=== PATIENT | male | born 1965 | race Caucasian/White ===

== ENCOUNTER 2018-10-31 15:35 | Emergency (ER) | payer OTHER ==
[2018-10-31 15:45] VITALS: RESP 18
[2018-10-31] MEDS ORDERED: MORPHINE SULFATE 4 MG/ML SYRINGE IV STA (16:40)
[2018-10-31] MEDS ORDERED: ASPIRIN 81 MG PO STA (16:40)
[2018-10-31] MEDS ORDERED: ONDANSETRON 4 MG/2 ML VIAL IVP STA (16:40)
[2018-10-31] MEDS ORDERED: SODIUM CHLORIDE 0.9% 500 ML 500 ML IV STA (16:40)
--- NOTE | 2018-10-31 16:52 | ED ---
Chest Pain HPI <VinTristan - Last Filed: 10/31/18 18:30> - General Source: patient Mode of arrival: ambulatory Limitations: no limitations <Vee Schultz - Last Filed: 10/31/18 19:34> - General Chief Complaint: Chest Pain Stated Complaint: chest/neck pain Time Seen by Provider: 10/31/18 16:20 - History of Present Illness Initial Comments: 53-year-old male patient presents to the emergency department today for evaluation of substernal chest pain that radiates into his back, neck, and shoulders. Patient states the pain has been present since last evening. States it has been intermittent. States that he does have shortness of breath, nausea, and occasional sweats with this. Patient does have history of hypertension is been a smoker for many years. He denies any history of high cholesterol, diabetes, or family history of cardiac conditions. He denies any recent travel, leg pain, or calf swelling. Patient denies any recent rash, fever , chills, abdominal pain, vomiting, diarrhea, constipation, numbness, tingling, dizziness, weakness, hematuria, dysuria, urinary urgency, urinary frequency, headache, visual changes, or any other complaints. (Vee Schultz) - Related Data Home Medications Medication Instructions Recorded Confirmed No Known Home Medications 10/31/18 10/31/18 Allergies Allergy/AdvReac Type Severity Reaction Status Date / Time No Known Allergies Allergy Verified 10/31/18 16:25 Review of Systems ROS Other: All systems not noted in ROS Statement are negative. <Tristan Banuelos - Last Filed: 10/31/18 18:30> ROS Other: All systems not noted in ROS Statement are negative. <Vee Schultz - Last Filed: 10/31/18 19:34> ROS Statement: Those systems with pertinent positive or pertinent negative responses have been documented in the HPI. EKG Findings - EKG Comments: EKG Findings:: EKG obtained at 1619 shows sinus tachycardia with a ventricular rate of 103, [place] interval 126, QRS duration 86, QT 346, QTc 453. Patient does exhibit inverted T waves in V3, V4, V5, this is changed from previous EKG obtained on 07/28/2013. <Vee Schultz - Last Filed: 10/31/18 19:34> Past Medical History Past Medical History: Hypertension History of Any Multi-Drug Resistant Organisms: None Reported Additional Past Surgical History / Comment(s): colonscopy Past Psychological History: Anxiety Smoking Status: Current every day smoker Past Alcohol Use History: None Reported Past Drug Use History: Marijuana <Vee Schultz - Last Filed: 10/31/18 19:34> General Exam Limitations: no limitations <Vee Schultz - Last Filed: 10/31/18 19:34> Course <Tristan Banuelos - Last Filed: 10/31/18 18:30> <Vee Schultz - Last Filed: 10/31/18 19:34> Vital Signs 10/31/18 10/31/18 15:41 19:28 Temperature 98.1 F 99.3 F Pulse Rate 109 H 93 Respiratory 18 18 Rate Blood Pressure 118/67 125/99 O2 Sat by Pulse 98 96 Oximetry - Reevaluation(s) Reevaluation #1: 10/31/18 18:31 N P supervision: I proceeded [id number] evaluation the patient he did present with complaints of intermittent chest pain that started in his chest radiating to his back and across his shoulders. He had associated sweats and nausea with it. Initial workup is negative at the symptoms are consistent with unstable angina. I did discuss the case with Dr. Edward. The patient will be admitted and a workup will be done inpatient. I do agree with the assessment and plan. (Tristan Banuelos) Chest Pain MDM <Tristan Banuelos - Last Filed: 10/31/18 18:30> <Vee Schultz - Last Filed: 10/31/18 19:34> - [facility] RADIOLOGY:Two-view x-ray of the chest is obtained. Report was reviewed in its entirety. Impression by Dr. Mitzi Joshi shows no acute process. 53-year-old male patient presented to the emergency department today for evaluation of chest pain, shortness of breath, and tingling to his fingers. Physical examination was unremarkable. Chest x-ray showed no acute cardio pulmonary process. Initial lab evaluation was unremarkable. Troponin negative. Patient did have risk factors including hypertension and a long history of smoking cigarettes. I did recommend admission to the hospital for further monitoring, repeat labs, and cardiac evaluation. Patient refused to stay stating that he had elderly parents at home that he could not leave by themselves. I did discuss risks of leaving including , permanent disability, heart attack, and stroke, he verbalizes understanding of the risks and would still like to leave. He is instructed to follow-up outpatient for further evaluation. He is instructed to start taking a baby aspirin daily. Return parameters were discussed in detail. He verbalizes understanding and agrees with this plan. (Vee Schultz) Disposition <Tristan Banuelos - Last Filed: 10/31/18 18:30> Is patient prescribed a controlled substance at d/c from ED?: No Time of Disposition: 19:05 <Vee Schultz - Last Filed: 10/31/18 19:34> Clinical Impression: Chest pain Disposition: Left Against Medical Advice Condition: Undetermined Instructions (If sedation given, give patient instructions): Chest Pain (ED) Additional Instructions: [facility] soon as possible. Take a baby aspirin daily. Return to the emergency department immediately for any new , worsening, or concerning symptoms. Referrals: [facility],Odilia Lezama [NON-STAFF] - 1-2 days Leonarda Goldstein MD [STAFF PHYSICIAN] - 1-2 days
[2018-10-31 17:18] LABS: Basophils # (A) 0.1 k/uL (0-0.2); Basophils % (A) 1 %; Eosinophils # (A) 0.3 k/uL (0-0.7); Eosinophils % (A) 3 %; HCT 47.3 % (39.0-53.0); HGB 15.7 gm/dL (13.0-17.5); Lymphocytes # (A) 1.9 k/uL (1.0-4.8); Lymphocytes % (A) 19 %; MCH 31.9 pg (25.0-35.0); MCHC 33.1 g/dL (31.0-37.0); MCV 96.3 fL (80.0-100.0); Mean Platelet Volume 6.7; Monocytes # (A) 0.6 k/uL (0-1.0); Monocytes % (A) 6 %; Neutrophils # (A) 7.3 k/uL (1.3-7.7); Neutrophils % (A) 71 %; Platelet Count 350 k/uL (150-450); RBC 4.91 m/uL (4.30-5.90); WBC 10.3 k/uL (3.8-10.6)
[2018-10-31 17:32] LABS: D-Dimer 0.3 mg/L FEU (<0.60); INR 0.9 (<1.2); Partial Thromboplastin Time 26.3 sec (22.0-30.0); Prothrombin Time 10.1 sec (9.0-12.0)
[2018-10-31 17:37] LABS: ALT 24 U/L (21-72); AST 22 U/L (17-59); Albumin 4.2 g/dL (3.5-5.0); Alkaline Phosphatase 61 U/L (38-126); Amylase 62 U/L (30-110); Anion Gap 9 mmol/L; Blood Urea Nitrogen 17 mg/dL (9-20); Carbon Dioxide 27 mmol/L (22-30); Chloride 105 mmol/L (98-107); Glucose 121 mg/dL (74-99); Lipase 107 U/L (23-300); Magnesium 1.9 mg/dL (1.6-2.3); Potassium 4.2 mmol/L (3.5-5.1); Sodium 141 mmol/L (137-145); Total Bilirubin 0.6 mg/dL (0.2-1.3); Total Protein 7.2 g/dL (6.3-8.2)
[2018-10-31 17:58] LABS: Creatine Kinase MB 0.9 ng/mL (0.0-2.4); Troponin I 0.013 ng/mL (0.000-0.034)
--- NOTE | 2018-10-31 17:58 | XR ---
EXAMINATION: XR chest 2V DATE AND TIME: 10/31/2018 5:40 PM CLINICAL INDICATION: [facility]; Chest Pain TECHNIQUE: Departmental protocol COMPARISON: 07/28/2013 FINDINGS: The lungs are clear. The pleural spaces are negative. The cardiac silhouette is not enlarged. The remainder of the mediastinal silhouette is unremarkable. The skeletal structures and soft tissues are negative for acute findings. IMPRESSION: NO ACUTE PROCESS.
[2018-10-31 19:30] VITALS: BP 125/99; PULSE 93; TEMP 99.3
== END 2018-10-31 19:32 | disposition left against medical advice (07) ==
LOC: EC 15:35
DX: R07.2 Precordial pain (principal); R06.02 Shortness of breath; R20.2 Paresthesia of skin; F17.200 Nicotine dependence, unspecified, uncomplicated; Z53.29 Procedure and treatment not carried out because of patient's decision for other reasons
CPT/HCPCS: 36415; 93005; 85379; 80053; 82150; 82550; 82553; 83690; 83735; 84484; 85025; 85610; 85730; 71046; 99285; 96374; 96375; 96361 ×2; J2270; J2405

== ENCOUNTER 2018-11-03 17:21 | Emergency (ER) | payer OTHER ==
[2018-11-03 17:37] VITALS: TEMP 97.5
[2018-11-03] MEDS ORDERED: KETOROLAC 30 MG/ML 1 ML VIAL IVP STA (17:46)
[2018-11-03] MEDS ORDERED: HYDROmorphone 1 MG/ML 1 ML SYRINGE IVP STA (17:46)
[2018-11-03] MEDS ORDERED: SODIUM CHLORIDE 0.9% 1,000 ML IV STA ×2 (17:46)
[2018-11-03] MEDS ORDERED: ONDANSETRON 4 MG/2 ML VIAL IVP STA (17:46)
--- NOTE | 2018-11-03 17:49 | ED ---
Abdominal Pain HPI - General Chief Complaint: Abdominal Pain Stated Complaint: kidney stone Time Seen by Provider: 11/03/18 17:41 Source: patient, RN notes reviewed, old records reviewed Mode of arrival: ambulatory Limitations: no limitations - History of Present Illness Initial Comments: Patient is a 53-year-old male who presents today with onset of left-sided flank pain radiating towards the front. Patient reports that the symptoms started around 5 AM. He is feels quite nauseated but no vomiting episodes. Patient reports that he's had a history of kidney since the past. They've all passed on their own without any surgical intervention. He denies any fevers or chills. - Related Data Previous Rx's Medication Instructions Recorded HYDROcodone/APAP 5-325MG [[place] 1 tab PO Q6HR PRN 3 Days #12 tab 11/03/18 5-325] Ketorolac [Toradol] 10 mg PO Q6HR #15 tab 11/03/18 Ondansetron Odt [Zofran Odt] 4 mg PO Q8HR PRN #20 tab 11/03/18 Tamsulosin [Flomax] 0.4 mg PO DAILY #7 cap 11/03/18 Allergies Allergy/AdvReac Type Severity Reaction Status Date / Time No Known Allergies Allergy Verified 11/03/18 17:37 Review of Systems ROS Statement: Those systems with pertinent positive or pertinent negative responses have been documented in the HPI. ROS Other: All systems not noted in ROS Statement are negative. Past Medical History Past Medical History: Hypertension Additional Past Medical History / Comment(s): Kidney stones History of Any Multi-Drug Resistant Organisms: None Reported Additional Past Surgical History / Comment(s): colonscopy Past Psychological History: Anxiety Smoking Status: Current every day smoker Past Alcohol Use History: None Reported Past Drug Use History: Marijuana General Exam - General Exam Comments Initial Comments: 53-year-old male. Patient appears in moderate discomfort. Limitations: no limitations General appearance: alert, in no apparent distress Head exam: Present: atraumatic, normocephalic, normal inspection Eye exam: Present: normal appearance, PERRL, EOMI. Absent: scleral icterus, conjunctival injection, periorbital swelling ENT exam: Present: normal exam, mucous membranes moist Neck exam: Present: normal inspection. Absent: tenderness, meningismus, lymphadenopathy Respiratory exam: Present: normal lung sounds bilaterally. Absent: respiratory distress, wheezes, rales, rhonchi, stridor Cardiovascular Exam: Present: regular rate, normal rhythm, normal heart sounds. Absent: systolic murmur, diastolic murmur, rubs, gallop, clicks GI/Abdominal exam: Present: soft, tenderness (Left lower quadrant tenderness. Left CVA tenderness), normal bowel sounds. Absent: distended, guarding, rebound , rigid Extremities exam: Present: normal inspection, full ROM, normal capillary refill. Absent: tenderness, pedal edema, joint swelling, calf tenderness Back exam: Present: normal inspection Neurological exam: Present: alert, oriented X3, CN II-XII intact Psychiatric exam: Present: normal affect, normal mood Skin exam: Present: warm, dry, intact, normal color. Absent: rash Course Vital Signs 11/03/18 17:35 Temperature 97.5 F L Pulse Rate 112 H Respiratory 24 Rate Blood Pressure 156/84 O2 Sat by Pulse 99 Oximetry Medical Decision Making - Medical Decision Making Patient's 53-year-old male presents for a sermon today with onset of left-sided flank pain. Patient reports that history of kidney stones. At this time urinalysis is positive for blood and some white blood cells. Culture will be obtained. Patient's labwork including kidney infection was otherwise unremarkable. CT on pills without contrast was completed. His evidence of a 6 mm obstructive left proximal ureter stone. I discussed with the Patient that likely could've this stone passing. Given a dose of Flomax in the emergency department. Patient is resting comfortable after receiving the dose pain medication and nausea medication. We'll discharge the Patient with prescription for Toradol Zofran Flomax and [place]. Discussed following up with urology. - Lab Data Result diagrams: 11/03/18 17:47 11/03/18 17:47 Lab Results 11/03/18 11/03/18 11/03/18 Range/Units 17:47 17:47 19:07 WBC 13.3 H (3.8-10.6) k/uL RBC 5.16 (4.30-5.90) m/uL Hgb 16.5 (13.0-17.5) gm/dL Hct 48.5 (39.0-53.0) % MCV 94.1 (80.0-100.0) fL MCH 31.9 (25.0-35.0) pg MCHC 33.9 (31.0-37.0) g/dL RDW 12.5 (11.5-15.5) % Plt Count 336 (150-450) k/uL Neutrophils % 86 % Lymphocytes % 8 % Monocytes % 4 % Eosinophils % 2 % Basophils % 0 % Neutrophils # 11.4 H (1.3-7.7) k/uL Lymphocytes # 1.0 (1.0-4.8) k/uL Monocytes # 0.6 (0-1.0) k/uL Eosinophils # 0.2 (0-0.7) k/uL Basophils # 0.0 (0-0.2) k/uL Sodium 137 (137-145) mmol/L Potassium 4.7 (3.5-5.1) mmol/L Chloride 103 (98-107) mmol/L Carbon Dioxide 22 (22-30) mmol/L Anion Gap 12 mmol/L BUN 19 (9-20) mg/dL Creatinine 1.17 (0.66-1.25) mg/dL Est GFR (CKD-EPI)AfAm 81 (>60 ml/min/1.73 sqM) Est GFR (CKD-EPI)NonAf 70 (>60 ml/min/1.73 sqM) Glucose 176 H (74-99) mg/dL Calcium 10.2 (8.4-10.2) mg/dL Total Bilirubin 0.9 (0.2-1.3) mg/dL AST 27 (17-59) U/L ALT 30 (21-72) U/L Alkaline Phosphatase 69 (38-126) U/L Total Protein 7.4 (6.3-8.2) g/dL Albumin 4.3 (3.5-5.0) g/dL Amylase 41 (30-110) U/L Lipase 73 (23-300) U/L Urine Color Yellow Urine Appearance Clear (Clear) Urine pH 5.5 (5.0-8.0) Ur Specific [place] 1.019 (1.001-1.035) Urine Protein Trace H (Negative) Urine Glucose (UA) Negative (Negative) Urine Ketones 1+ H (Negative) Urine Blood Moderate H (Negative) Urine Nitrite Negative (Negative) Urine Bilirubin Negative (Negative) Urine Urobilinogen <2.0 (<2.0) mg/dL Ur Leukocyte Esterase Small H (Negative) Urine RBC 61 H (0-5) /hpf Urine WBC 11 H (0-5) /hpf Urine Mucus Few H (None) /hpf - Radiology Data Radiology results: report reviewed Obstructing calculus in the left ureter with hydronephrosis and perinephric edema. There measures to be a 6 mm calculus. Multiple bilateral renal code 5 more on the left side. Atherosclerotic vascular disease. A spinal changes within the lumbar spine. Disposition Clinical Impression: Ureteral calculus, left Disposition: HOME SELF-CARE Condition: Good Instructions (If sedation given, give patient instructions): Ureteral Stones ( ED) Additional Instructions: Patient advised to follow-up with urology. Patient should return to the emergency department if any alarming signs or symptoms occur. Take the medications as prescribed. Prescriptions: HYDROcodone/APAP 5-325MG [[place] 5-325] 1 tab PO Q6HR PRN 3 Days #12 tab PRN Reason: Pain Ketorolac [Toradol] 10 mg PO Q6HR #15 tab Ondansetron Odt [Zofran Odt] 4 mg PO Q8HR PRN #20 tab PRN Reason: Nausea Tamsulosin [Flomax] 0.4 mg PO DAILY #7 cap Is patient prescribed a controlled substance at d/c from ED?: Yes When asked, does pt state using other controlled substances?: No If prescribed controlled substance>3 days was MAPS reviewed?: Prescribed <3 Days If opioid is for acute pain is fill amount 7 days or less?: Yes If Rx opioid, was Start Talking consent form obtained?: Yes Referrals: None,Stated [Primary Care Provider] - 1-2 days Ion Marie MD [STAFF PHYSICIAN] - 1-2 days Time of Disposition: 20:15
[2018-11-03 18:02] LABS: Basophils % (A) 0 %; Eosinophils # (A) 0.2 k/uL (0-0.7); Eosinophils % (A) 2 %; HCT 48.5 % (39.0-53.0); HGB 16.5 gm/dL (13.0-17.5); Lymphocytes % (A) 8 %; MCH 31.9 pg (25.0-35.0); MCHC 33.9 g/dL (31.0-37.0); MCV 94.1 fL (80.0-100.0); Mean Platelet Volume 6.5; Monocytes # (A) 0.6 k/uL (0-1.0); Monocytes % (A) 4 %; Neutrophils # (A) 11.4 k/uL (1.3-7.7); Neutrophils % (A) 86 %; Platelet Count 336 k/uL (150-450); RBC 5.16 m/uL (4.30-5.90); RDW 12.5 % (11.5-15.5); WBC 13.3 k/uL (3.8-10.6)
[2018-11-03 18:09] LABS: Albumin 4.3 g/dL (3.5-5.0); Calcium 10.2 mg/dL (8.4-10.2); Potassium 4.7 mmol/L (3.5-5.1); Total Bilirubin 0.9 mg/dL (0.2-1.3); Total Protein 7.4 g/dL (6.3-8.2)
--- NOTE | 2018-11-03 18:53 | CT ---
EXAMINATION TYPE: CT abdomen pelvis wo con DATE OF EXAM: 11/03/2018 COMPARISON: None HISTORY: Left flank pain, history of renal stones. CT DLP: 393.3 mGycm Automated exposure control for dose reduction was used. TECHNIQUE: Helical acquisition of images was performed from the lung bases through the pelvis. FINDINGS: There is patchy linear density at the right posterior lung base consistent with scarring and atelecta sis. Heart size is normal. There is no pericardial effusion. There are numerous calcified splenic granulomata. Stomach appears normal. There is no pancreatic mass . There is calcified hepatic granulomata. Gallbladder appears normal. Bile ducts are not dilated. There is no adrenal mass. There are numerous calculi in left kidney. There is mild left-sided hydrone phrosis and hydroureter. There is 6 mm calculus in the proximal left ureter. Bladder distends smoothl y. There is no free fluid in the pelvis. There is mild left-sided perinephric edema. The right kidney shows a few small nonobstructing calculi. Right ureter is not dilated. Bladder distends smoothly. Appendix is not definitely seen. There is no sign of appendicitis. There i s no inguinal hernia. There is no free fluid in the pelvis. There is no mesenteric edema. THERE ARE SPONDYLOTIC CHANGES AT L5-S1. THERE IS NO LUMBAR COMPRESSION FRACTURE. I SEE NO BONY DESTRU CTIVE PROCESS. THERE IS A FEW MILLIMETER ANTERIOR SUBLUXATION OF L3 IN RELATION L4. THERE IS NO SPOND YLOLYSIS. IMPRESSION: Obstructing calculus in the proximal left ureter with hydronephrosis and perinephric edema. Multiple bilateral renal calculi and more on the left side. Atherosclerotic vascular disease. Spondylotic changes in the lumbar spine.
[2018-11-03 19:32] LABS: Appearance,Urine Clear (Clear); Bilirubin,Urine Negative (Negative); Blood,Urine Moderate (Negative); Color,Urine Yellow; Glucose,Urine (UA) Negative (Negative); Ketones,Urine 1+ (Negative); Leukocyte Esterase,Urine Small (Negative); Mucus,Urine Few /hpf; Nitrite,Urine Negative (Negative); PH, Urine 5.5 (5.0-8.0); Protein,Urine Trace (Negative); RBC,Urine 61 /hpf (0-5); Specific Gravity,Urine 1.019 (1.001-1.035); Urobilinogen,Urine <2.0 mg/dL (<2.0); WBC,Urine 11 /hpf (0-5)
[2018-11-03] MEDS ORDERED: TAMSULOSIN 0.4 MG CAP.ER.24H PO STA (20:17)
[2018-11-03] MEDS ORDERED: MORPHINE SULFATE 4 MG/ML SYRINGE IVP STA (20:17)
[2018-11-03 21:34] VITALS: BP 121/78; PULSE 82; RESP 20
== END 2018-11-03 21:25 | disposition home or self-care (01) ==
LOC: EC 17:21
DX: N20.1 Calculus of ureter (principal); F17.200 Nicotine dependence, unspecified, uncomplicated
CPT/HCPCS: 36415; 80053; 82150; 83690; 85025; 81001; 87086; 74176; 99285; 96374; 96375 ×3; 96361 ×3; J2270; J2405; J1885; J1170

== ENCOUNTER 2019-01-12 00:23 | Emergency (ER) | payer OTHER ==
[2019-01-12 00:28] VITALS: BP 122/79; PULSE 97; RESP 18; TEMP 98
[2019-01-12 01:19] LABS: Basophils % (A) 0 %; Eosinophils # (A) 0.5 k/uL (0-0.7); Eosinophils % (A) 5 %; HCT 46.4 % (39.0-53.0); HGB 15.6 gm/dL (13.0-17.5); Lymphocytes # (A) 1.9 k/uL (1.0-4.8); Lymphocytes % (A) 19 %; MCHC 33.5 g/dL (31.0-37.0); MCV 95.6 fL (80.0-100.0); Mean Platelet Volume 6.5; Monocytes # (A) 0.6 k/uL (0-1.0); Monocytes % (A) 6 %; Neutrophils # (A) 6.8 k/uL (1.3-7.7); Neutrophils % (A) 68 %; Platelet Count 338 k/uL (150-450); RBC 4.86 m/uL (4.30-5.90); RDW 12.9 % (11.5-15.5)
[2019-01-12 01:28] LABS: ALT 26 U/L (21-72); AST 19 U/L (17-59); Albumin 4.4 g/dL (3.5-5.0); Alkaline Phosphatase 96 U/L (38-126); Anion Gap 11 mmol/L; Blood Urea Nitrogen 18 mg/dL (9-20); Calcium 10.2 mg/dL (8.4-10.2); Carbon Dioxide 23 mmol/L (22-30); Chloride 103 mmol/L (98-107); Glucose 123 mg/dL (74-99); Magnesium 1.9 mg/dL (1.6-2.3); Potassium 4.1 mmol/L (3.5-5.1); Sodium 137 mmol/L (137-145); Total Bilirubin 0.3 mg/dL (0.2-1.3); Total Protein 7.4 g/dL (6.3-8.2)
--- NOTE | 2019-01-12 01:33 | ED ---
Chest Pain HPI - General Chief Complaint: Chest Pain Stated Complaint: Chest Pain Time Seen by Provider: 01/12/19 00:39 Source: patient Mode of arrival: ambulatory Limitations: no limitations - History of Present Illness MD Complaint: chest pain Onset/Timin -: hour(s) Onset: during rest Pain Location: left chest Pain Radiation: back Severity: moderate Quality: sharp Consistency: now resolved Improves With: nitroglycerin Worsens With: nothing Anginal Symptoms: dyspnea Treatments Prior to Arrival: nitroglycerin - Related Data Previous Rx's Medication Instructions Recorded HYDROcodone/APAP 5-325MG [[place] 1 tab PO Q6HR PRN 3 Days #12 tab 11/03/18 5-325] Ketorolac [Toradol] 10 mg PO Q6HR #15 tab 11/03/18 Ondansetron Odt [Zofran Odt] 4 mg PO Q8HR PRN #20 tab 11/03/18 Tamsulosin [Flomax] 0.4 mg PO DAILY #7 cap 11/03/18 Allergies Allergy/AdvReac Type Severity Reaction Status Date / Time No Known Allergies Allergy Verified 01/12/19 00:28 Review of Systems ROS Statement: Those systems with pertinent positive or pertinent negative responses have been documented in the HPI. ROS Other: All systems not noted in ROS Statement are negative. Constitutional: Denies: fever, chills Respiratory: Reports: as per HPI, dyspnea. Denies: cough, hemoptysis Cardiovascular: Reports: as per HPI, chest pain. Denies: palpitations, orthopnea, edema, syncope Gastrointestinal: Denies: abdominal pain, nausea, vomiting Genitourinary: Denies: dysuria Musculoskeletal: Denies: back pain Skin: Denies: rash Neurological: Denies: headache, weakness, numbness Past Medical History Past Medical History: Hypertension Additional Past Medical History / Comment(s): Kidney stones History of Any Multi-Drug Resistant Organisms: None Reported Additional Past Surgical History / Comment(s): colonscopy Past Psychological History: Anxiety Smoking Status: Current every day smoker Past Alcohol Use History: None Reported Past Drug Use History: Marijuana General Exam Limitations: no limitations General appearance: alert, in no apparent distress Head exam: Present: atraumatic, normocephalic Eye exam: Present: normal appearance. Absent: scleral icterus, conjunctival injection ENT exam: Present: normal oropharynx Respiratory exam: Present: wheezes (Trace end expiratory wheeze). Absent: respiratory distress, rales, rhonchi, stridor Cardiovascular Exam: Present: regular rate, normal rhythm, normal heart sounds. Absent: systolic murmur, diastolic murmur, rubs, gallop GI/Abdominal exam: Present: soft. Absent: distended, tenderness, guarding, rebound, rigid, mass Extremities exam: Present: normal inspection, normal capillary refill. Absent: pedal edema, calf tenderness Back exam: Present: normal inspection Neurological exam: Present: alert Skin exam: Present: warm, dry, intact, normal color. Absent: rash Course Vital Signs 01/12/19 00:25 Temperature 98 F Pulse Rate 97 Respiratory 18 Rate Blood Pressure 122/79 O2 Sat by Pulse 97 Oximetry Disposition Clinical Impression: Angina pectoris Disposition: Left Against Medical Advice Condition: Undetermined Instructions (If sedation given, give patient instructions): Angina (ED) Is patient prescribed a controlled substance at d/c from ED?: No Referrals: None,Stated [Primary Care Provider] - 1-2 days Segrio Nelson MD [STAFF PHYSICIAN] - 1-2 days
[2019-01-12 01:34] LABS: D-Dimer 0.58 mg/L FEU (<0.60); INR 0.8 (<1.2); Partial Thromboplastin Time 27.3 sec (22.0-30.0); Prothrombin Time 9.4 sec (9.0-12.0)
--- NOTE | 2019-01-12 02:02 | XR ---
EXAM: XR Chest, 1 View CLINICAL HISTORY: Reason: chest pain TECHNIQUE: Frontal view of the chest. COMPARISON: Chest x-ray 10/31/2018 FINDINGS: Lungs: Lungs are clear of focal infiltrates or consolidations. Pleural space: No evidence of pleural effusion or pneumothorax. Heart: Heart size is within normal limits. Mediastinum: Mediastinal structures are unremarkable. Bones/joints: Imaged bony thorax is unremarkable. IMPRESSION: No evidence of acute cardiopulmonary disease.
[2019-01-12] MEDS ORDERED: NITROGLYCERIN SL TABS 0.4 MG TAB SUBLINGUAL PRN (02:55)
[2019-01-13] MEDS ORDERED: ASPIRIN 325 MG TAB PO SCH (09:00)
== END 2019-01-12 04:30 | disposition left against medical advice (07) ==
LOC: EC 00:23 → UNDOADMOB 02:58 → 1SOBS 02:58 → EC 04:30
DX: I20.9 Angina pectoris, unspecified (principal); F17.200 Nicotine dependence, unspecified, uncomplicated
CPT/HCPCS: 36415; 71045; 80053; 83735; 84484; 85025; 85379; 85610; 85730; 99285

== ENCOUNTER 2019-01-12 07:39 | Observation (INO) | payer OTHER ==
[2019-01-12] MEDS ORDERED: NITROGLYCERIN SL TABS 0.4 MG TAB SUBLINGUAL STA ×4 (08:12)
[2019-01-12] MEDS ORDERED: ASPIRIN 81 MG PO STA ×2 (08:12)
--- NOTE | 2019-01-12 08:16 | ED ---
General Adult HPI - General Chief complaint: Chest Pain Stated complaint: chest pain Time Seen by Provider: 01/12/19 07:47 Source: patient, RN notes reviewed Mode of arrival: ambulatory Limitations: no limitations - History of Present Illness Initial comments: Patient is a pleasant 53-year-old male presenting to the emergency Department with chest discomfort. Patient states symptoms have been waxing and waning for a couple of days now. Patient was in the emergency department earlier today and left AGAINST MEDICAL ADVICE. Patient went home and states symptoms have worsened. Patient has sharp discomfort left lower chest. Patient does have some associated dyspnea and nausea. No history of similar symptoms previously however patient states he did take one nitroglycerin prior to arrival. No diaphoresis. Patient states discomfort is somewhat sharp and does radiate towards the back. Patient denies any alcohol use. - Related Data Allergies Allergy/AdvReac Type Severity Reaction Status Date / Time iodine AdvReac Vomiting Verified 01/12/19 08:24 Review of Systems ROS Statement: Those systems with pertinent positive or pertinent negative responses have been documented in the HPI. ROS Other: All systems not noted in ROS Statement are negative. Constitutional: Denies: fever Eyes: Denies: eye pain ENT: Denies: ear pain Respiratory: Reports: dyspnea. Denies: cough Cardiovascular: Reports: chest pain Endocrine: Denies: fatigue Gastrointestinal: Reports: nausea. Denies: abdominal pain Genitourinary: Denies: dysuria Musculoskeletal: Reports: as per HPI Skin: Denies: rash Neurological: Denies: weakness Past Medical History Past Medical History: Hypertension Additional Past Medical History / Comment(s): Kidney stones History of Any Multi-Drug Resistant Organisms: None Reported Additional Past Surgical History / Comment(s): colonscopy Past Psychological History: Anxiety Smoking Status: Current every day smoker Past Alcohol Use History: None Reported Past Drug Use History: Marijuana General Exam Limitations: no limitations General appearance: alert Head exam: Present: normocephalic Eye exam: Present: normal appearance Neck exam: Present: normal inspection Respiratory exam: Present: normal lung sounds bilaterally, chest wall tenderness Cardiovascular Exam: Present: regular rate, normal rhythm Expanded Peripheral pulses: 2+: Radial (R), Radial (L), Posterior Tibialis (R), Posterior Tibialis (L), Dorsalis Pedis (R), Dorsalis Pedis (L) GI/Abdominal exam: Present: soft. Absent: tenderness Extremities exam: Present: normal inspection. 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 GA 128. QRS 80. QT 362. QTC 471. Norm al axis. Normal QRS. Nonspecific T waves. Medical Decision Making - Medical Decision Making Patient reevaluated and resting comfortably in bed. Patient states he has been receiving improvement with nitroglycerin however it has been causing headaches. Patient updated on results and plan. Dr. elise has been paged for admission for hospital call. Patient will have computed tomography scan done secondary to slight elevation of d-dimer. - Lab Data Result diagrams: 01/12/19 08:05 01/12/19 08:05 Lab Results 01/12/19 01/12/19 01/12/19 Range/Units 08:05 08:05 08:05 WBC 11.6 H (3.8-10.6) k/uL RBC 5.10 (4.30-5.90) m/uL Hgb 16.0 (13.0-17.5) gm/dL Hct 47.8 (39.0-53.0) % MCV 93.8 (80.0-100.0) fL MCH 31.5 (25.0-35.0) pg MCHC 33.5 (31.0-37.0) g/dL RDW 13.6 (11.5-15.5) % Plt Count 359 (150-450) k/uL Neutrophils % 78 % Lymphocytes % 11 % Monocytes % 5 % Eosinophils % 4 % Basophils % 0 % Neutrophils # 9.0 H (1.3-7.7) k/uL Lymphocytes # 1.3 (1.0-4.8) k/uL Monocytes # 0.6 (0-1.0) k/uL Eosinophils # 0.5 (0-0.7) k/uL Basophils # 0.0 (0-0.2) k/uL PT 9.6 (9.0-12.0) sec INR 0.9 (<1.2) APTT 26.8 (22.0-30.0) sec D-Dimer 0.61 H (<0.60) mg/L FEU Sodium 138 (137-145) mmol/L Potassium 4.4 (3.5-5.1) mmol/L Chloride 105 (98-107) mmol/L Carbon Dioxide 24 (22-30) mmol/L Anion Gap 9 mmol/L BUN 19 (9-20) mg/dL Creatinine 0.70 (0.66-1.25) mg/dL Est GFR (CKD-EPI)AfAm >90 (>60 ml/min/1.73 sqM) Est GFR (CKD-EPI)NonAf >90 (>60 ml/min/1.73 sqM) Glucose 111 H (74-99) mg/dL Calcium 10.1 (8.4-10.2) mg/dL Magnesium 1.8 (1.6-2.3) mg/dL Total Bilirubin 0.5 (0.2-1.3) mg/dL AST 20 (17-59) U/L ALT 25 (21-72) U/L Alkaline Phosphatase 76 (38-126) U/L Creatine Kinase 94 (55-170) U/L CK-MB (CK-2) (0.0-2.4) ng/mL Troponin I (0.000-0.034) ng/mL Total Protein 7.3 (6.3-8.2) g/dL Albumin 4.2 (3.5-5.0) g/dL Amylase 73 (30-110) U/L 01/12/19 Range/Units 08:05 WBC (3.8-10.6) k/uL RBC (4.30-5.90) m/uL Hgb (13.0-17.5) gm/dL Hct (39.0-53.0) % MCV (80.0-100.0) fL MCH (25.0-35.0) pg MCHC (31.0-37.0) g/dL RDW (11.5-15.5) % Plt Count (150-450) k/uL Neutrophils % % Lymphocytes % % Monocytes % % Eosinophils % % Basophils % % Neutrophils # (1.3-7.7) k/uL Lymphocytes # (1.0-4.8) k/uL Monocytes # (0-1.0) k/uL Eosinophils # (0-0.7) k/uL Basophils # (0-0.2) k/uL PT (9.0-12.0) sec INR (<1.2) APTT (22.0-30.0) sec D-Dimer (<0.60) mg/L FEU Sodium (137-145) mmol/L Potassium (3.5-5.1) mmol/L Chloride (98-107) mmol/L Carbon Dioxide (22-30) mmol/L Anion Gap mmol/L BUN (9-20) mg/dL Creatinine (0.66-1.25) mg/dL Est GFR (CKD-EPI)AfAm (>60 ml/min/1.73 sqM) Est GFR (CKD-EPI)NonAf (>60 ml/min/1.73 sqM) Glucose (74-99) mg/dL Calcium (8.4-10.2) mg/dL Magnesium (1.6-2.3) mg/dL Total Bilirubin (0.2-1.3) mg/dL AST (17-59) U/L ALT (21-72) U/L Alkaline Phosphatase (38-126) U/L Creatine Kinase (55-170) U/L CK-MB (CK-2) 0.8 (0.0-2.4) ng/mL Troponin I <0.012 (0.000-0.034) ng/mL Total Protein (6.3-8.2) g/dL Albumin (3.5-5.0) g/dL Amylase (30-110) U/L - Radiology Data Radiology results: image reviewed (Chest x-ray shows no acute process.) Disposition Clinical Impression: Chest pain Disposition: ADMITTED IP TO THIS [facility] Is patient prescribed a controlled substance at d/c from ED?: No Referrals: None,Stated [Primary Care Provider] - 1-2 days Decision Time: 09:42
[2019-01-12 08:28] LABS: Basophils % (A) 0 %; Eosinophils # (A) 0.5 k/uL (0-0.7); Eosinophils % (A) 4 %; HCT 47.8 % (39.0-53.0); Lymphocytes # (A) 1.3 k/uL (1.0-4.8); Lymphocytes % (A) 11 %; MCH 31.5 pg (25.0-35.0); MCHC 33.5 g/dL (31.0-37.0); MCV 93.8 fL (80.0-100.0); Monocytes # (A) 0.6 k/uL (0-1.0); Monocytes % (A) 5 %; Neutrophils % (A) 78 %; Platelet Count 359 k/uL (150-450); RDW 13.6 % (11.5-15.5); WBC 11.6 k/uL (3.8-10.6)
[2019-01-12 08:36] LABS: ALT 25 U/L (21-72); AST 20 U/L (17-59); Albumin 4.2 g/dL (3.5-5.0); Alkaline Phosphatase 76 U/L (38-126); Amylase 73 U/L (30-110); Anion Gap 9 mmol/L; Blood Urea Nitrogen 19 mg/dL (9-20); Calcium 10.1 mg/dL (8.4-10.2); Carbon Dioxide 24 mmol/L (22-30); Chloride 105 mmol/L (98-107); Creatine Kinase 94 U/L (55-170); Glucose 111 mg/dL (74-99); Magnesium 1.8 mg/dL (1.6-2.3); Potassium 4.4 mmol/L (3.5-5.1); Sodium 138 mmol/L (137-145); Total Bilirubin 0.5 mg/dL (0.2-1.3); Total Protein 7.3 g/dL (6.3-8.2)
[2019-01-12 08:37] LABS: INR 0.9 (<1.2); Partial Thromboplastin Time 26.8 sec (22.0-30.0); Prothrombin Time 9.6 sec (9.0-12.0)
--- NOTE | 2019-01-12 08:38 | XR ---
EXAMINATION TYPE: XR chest 2V DATE OF EXAM: 01/12/2019 COMPARISON: Prior chest x-ray 01/12/2019 HISTORY: Chest pain TECHNIQUE: Frontal and lateral views of the chest are obtained. FINDINGS: There are overlying cardiac leads. Interstitium is increased. Aorta is dense. Prominent amado g volumes suggest underlying COPD. There is no focal air space opacity, pleural effusion, or pneumoth orax seen. The cardiac silhouette size is within normal limits. The osseous structures are intact. IMPRESSION: No acute cardiopulmonary process.
[2019-01-12] MEDS ORDERED: MORPHINE SULFATE 2 MG/ML SYRINGE IVP STA ×2 (08:55→17:03)
[2019-01-12 08:59] LABS: Creatine Kinase MB 0.8 ng/mL (0.0-2.4); Troponin I <0.012 ng/mL (0.000-0.034)
[2019-01-12 09:15] LABS: D-Dimer 0.61 mg/L FEU (<0.60)
[2019-01-12] MEDS ORDERED: ONDANSETRON 4 MG/2 ML VIAL IVP STA (09:23)
[2019-01-12] MEDS ORDERED: diphenhydrAMINE 50 MG/ML 1 ML VIAL IVP STA (09:24)
[2019-01-12] MEDS ORDERED: methylPREDNISolone SOD SUCCI 125 MG/2 ML VIAL IV STA (09:24)
[2019-01-12] MEDS ORDERED: FAMOTIDINE 20 MG/2 ML VIAL IV STA (09:24)
[2019-01-12] MEDS ORDERED: NITROGLYCERIN SL TABS 0.4 MG TAB SUBLINGUAL PRN (09:42)
--- NOTE | 2019-01-12 10:45 | CT ---
EXAMINATION TYPE: CT angio chest DATE OF EXAM: 01/12/2019 COMPARISON: None HISTORY: Mid chest pain. CT DLP: 298.5 mGycm CONTRAST: CT chest with contrast and 3D reconstruction with MIP imaging is performed with IV Contrast, patient injected with 71 mL of Isovue 370. Contrast-enhanced CT of the chest was performed through the course of the pulmonary arteries with amado g and mediastinal window settings submitted. 3D reconstruction with MIP imaging was also performed. PULMONARY ARTERIES: The pulmonary arteries and their major tributaries are patent. I do not see wilton dence for sizable filling defect to suggest pulmonary embolic process. LUNGS: Small scattered emphysematous bulla. The lungs are clear and free of infiltrate. No evidence f or atelectasis. No pulmonary nodule or mass is detected. No pleural effusion. MEDIASTINUM: Thoracic aorta is of normal caliber,however, evaluation is limited given timing of the contrast bolus. If there is concern for thoracic aortic pathology consider ALLYSSA. Correlate clinicall y . The heart is not enlarged. No evidence for mediastinal mass. No mediastinal lymph nodes greater than 1cm. HILAR STRUCTURES: No evidence for mass. No hilar lymph nodes greater than 1 cm. UPPER ABDOMEN: Splenic granulomas identified. IMPRESSION: 1. No evidence for Pulmonary embolism at this time.
[2019-01-12 10:51] VITALS: BMI 24.4
[2019-01-12] MEDS: NITROGLYCERIN OINT 1 INCH/GM PACKET TOPICAL SCH ×3 (12:09→23:57)
--- NOTE | 2019-01-12 15:28 | P.HPIM ---
History of Present Illness 53-year-old male came in with complaints of chest pain in the epigastric area midsternal area severe nature patient initially came to ER today in the left AGAINST MEDICAL ADVICE came back again because of his continued pain and const ant nonexertional nonradiating does not appear to be gastroesophageal reflux disease EKG did not show any acute ST-T wave changes patient had minimally elevated d-dimer because of which patient had a CAT scan to rule out pulmonary embolism patient doesn't have any PE or pneumonia no acute issues on the CAT scan. Patient denied any fever chills patient does cough is comparing of cough without any sputum production.. Patient did have some lightheadedness denied and diaphoresis but did have some shortness of breath associated with that. Denied any significant family history of premature cannot disease. Patient's chest pain is nonpleuritic in nature not associated with food Review of Systems REVIEW OF SYSTEMS: CONSTITUTIONAL: No fever, no malaise, no fatigue. HEENT: No recent visual problems or hearing problems. Denied any sore throat. CARDIOVASCULAR: No orthopnea, PND, no palpitations, no syncope. PULMONARY: No shortness of breath, no cough, no hemoptysis. GASTROINTESTINAL: No diarrhea, no nausea, no vomiting, no abdominal pain. NEUROLOGICAL: No headaches, no weakness, no numbness. HEMATOLOGICAL: Denies any bleeding or petechiae. GENITOURINARY: Denies any burning micturition, frequency, or urgency. MUSCULOSKELETAL/RHEUMATOLOGICAL: Denies any joint pain, swelling, or any muscle pain. ENDOCRINE: Denies any polyuria or polydipsia. The rest of the 14-point review of systems is negative. 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 History of Any Multi-Drug Resistant Organisms: None Reported Additional Past Surgical History / Comment(s): colonscopy with bowel perforation-laparotomy with bowel resection and colostomy/appendectomy-colostomy eventually reversed. Past Anesthesia/Blood Transfusion Reactions: No Reported Reaction Smoking Status: Current every day smoker - Past Family History Father Additional Family Medical History / Comment(s): Father had pacemaker. Mother Family Medical History: Dementia Medications and Allergies Allergies Allergy/AdvReac Type Severity Reaction Status Date / Time iodine AdvReac Vomiting Verified 01/12/19 08:24 Physical Exam Vitals: Vital Signs Temp Pulse Pulse Pulse Resp BP BP 01/12/19 11:48 01/12/19 11:15 98.3 F 84 18 163/93 01/12/19 10:31 98.4 F 85 18 118/74 01/12/19 08:53 81 18 113/69 01/12/19 08:07 86 01/12/19 07:42 97.6 F 98 20 133/83 Pulse Ox 01/12/19 11:48 97 01/12/19 11:15 97 01/12/19 10:31 97 01/12/19 08:53 96 01/12/19 08:07 01/12/19 07:42 97 Intake and Output 01/12/19 01/12/19 01/12/19 06:59 14:59 22:59 Intake Total 436 Balance 436 Intake: Oral 436 Other: Voiding Method Toilet # Voids 1 Weight 79.379 kg PHYSICAL EXAMINATION: GENERAL: The patient is alert and oriented x3, not in any acute distress. Well developed, well nourished. HEENT: Pupils are round and equally reacting to light. EOMI. No scleral icterus. No conjunctival pallor. Normocephalic, atraumatic. No pharyngeal erythema. No thyromegaly. CARDIOVASCULAR: S1 and S2 present. No murmurs, rubs, or gallops. PULMONARY: Chest is clear to auscultation, no wheezing or crackles. ABDOMEN: Soft, nontender, nondistended, normoactive bowel sounds. No palpable organomegaly. MUSCULOSKELETAL: No joint swelling or deformity. EXTREMITIES: No cyanosis, clubbing, or pedal edema. NEUROLOGICAL: Gross neurological examination did not reveal any focal deficits. SKIN: No rashes. Results CBC & Chem 7: 01/12/19 08:05 01/12/19 08:05 Labs: Abnormal Lab Results - Last 24 Hours (Table) 01/12/19 01/12/19 01/12/19 Range/Units 08:05 08:05 08:05 WBC 11.6 H (3.8-10.6) k/uL Neutrophils # 9.0 H (1.3-7.7) k/uL D-Dimer 0.61 H (<0.60) mg/L FEU Glucose 111 H (74-99) mg/dL Thrombosis Risk Factor Assmnt - Choose All That Apply Any of the Below Risk Factors Present?: Yes Each Factor Represents 1 point: Abnormal pulmonary function (COPD), Age 41-60 years Other Risk Factors: No Other congenital or acquired thrombophilia - If yes, enter type in comment: No Thrombosis Risk Factor Assessment Total Risk Factor Score: 2 Thrombosis Risk Factor Assessment Level: Low Risk Assessment and Plan Plan: -Chest pain rule out acute coronary syndromes and unstable angina, ordered 2 more sets of troponins and EKGs cardiology will evaluate the patient stress test as per cardiology. Patient appears to have atypical chest pain. -Leukocytosis reactive -Rule out pulmonary embolism nicotine abuse: Counseling was provided
[2019-01-12] MEDS ORDERED: PANTOPRAZOLE 40 MG/10 ML VIAL IVP SCH (15:30)
[2019-01-12] MEDS ORDERED: KETOROLAC 30 MG/ML 1 ML VIAL IVP SCH (18:00)
[2019-01-12 23:48] VITALS: BP 125/75; RESP 17; TEMP 98.4
[2019-01-13 01:12] VITALS: PULSE 86
[2019-01-13] MEDS ORDERED: ASPIRIN 325 MG TAB PO SCH (09:00)
--- NOTE | 2019-01-13 15:54 | P.DS ---
Providers Date of admission: 01/12/19 09:43 Attending physician: Hiren Alonso MD Consults: 01/12/19 09:43 Consult Physician Urgent Consulting Provider: Sergio Nelson Consult Reason/Comments: cp Do you want consulting provider notified?: Yes Primary care physician: Stated None Hospital Course: Patient left AGAINST MEDICAL ADVICE Plan - Discharge Summary Discharge Rx Participant: No Follow up Appointment(s)/Referral(s): None,Stated [Primary Care Provider] - 1-2 days Discharge Disposition: Left Against Medical Advice
== END 2019-01-13 02:45 | disposition left against medical advice (07) ==
LOC: EC 07:39 → 1SOBS 09:43
PROVIDERS: ADMIT Internal Medicine; ATTEND Internal Medicine
DX: R07.89 Other chest pain (principal); Z53.21 Procedure and treatment not carried out due to patient leaving prior to being seen by health care provider; D72.829 Elevated white blood cell count, unspecified; R11.0 Nausea; R51 Headache; R06.00 Dyspnea, unspecified; R79.89 Other specified abnormal findings of blood chemistry; R10.13 Epigastric pain; R42 Dizziness and giddiness; R06.02 Shortness of breath; R05 Cough; J44.9 Chronic obstructive pulmonary disease, unspecified; Z87.442 Personal history of urinary calculi; F17.200 Nicotine dependence, unspecified, uncomplicated; Z91.048 Other nonmedicinal substance allergy status; Z82.49 Family history of ischemic heart disease and other diseases of the circulatory system; Z81.8 Family history of other mental and behavioral disorders
CPT/HCPCS: 96375 ×2; 96376; 96374; 99285; 36415; 85379; 80053; 82150; 82550; 82553; 83735; 84484; 85025; 85610; 85730; 71046; 71275; G0378 ×2; J1200; J2930; J2405; J1885; J2270; C9113; Q9967; 93005

== ENCOUNTER 2020-03-03 15:56 | Inpatient (IN) | payer OTHER ==
--- NOTE | 2020-03-03 16:46 | ED ---
General Adult HPI - General Chief complaint: Chest Pain Stated complaint: abn EKG Time Seen by Provider: 03/03/20 16:16 Source: patient Mode of arrival: ambulatory Limitations: no limitations - History of Present Illness Initial comments: Dictation was produced using [employer] dictation software. please excuse any grammatical, word or spelling errors. This patient was cared for during a federal and state declared state of emergency secondary to Covid 19 Chief Complaint: 54-year-old male presents for abnormal EKG. History of Present Illness: Patient is 54-year-old male he initially went to the urgent care nearby. His initially presented symptoms was substernal chest pressure. He is seen by urgent care staff. He is told to come to the emergency department for abnormal EKG. Patient states that his pain is localized to the substernal chest. States it is worse with lying flat and worse with taking deep inspiration. Pain is a pressure-like sensation. No diaphoresis. No radiation to the shoulders or jaw. He has history of tobacco smoking. Denies any history of cardiac disease. Denies any cardiac comorbidities. Denies any lower showed a symptoms. No history of DVT or pulmonary embolus. The ROS documented in this emergency department record has been reviewed and confirmed by me. Those systems with pertinent positive or negative responses have been documented in the HPI. All other systems are other negative and/or noncontributory. PHYSICAL EXAM: General Impression: Alert and oriented x3, not in acute distress HEENT: Normocephalic atraumatic, extra-ocular movements intact, pupils equal and reactive to light bilaterally, mucous membranes moist. Cardiovascular: Heart regular rate and rhythm Chest: Able to complete full sentences, no retractions, no tachypnea Abdomen: abdomen soft, non-tender, non-distended, no organomegaly Musculoskeletal: Pulses present and equal in all extremities, no peripheral ed melissa Motor: no focal deficits noted Neurological: CN II-XII grossly intact, no focal motor or sensory deficits noted Skin: Intact with no visualized rashes Psych: Normal affect and mood ED course: 54-year-old male presents with abnormal EKG and chest pain. As upon arrival are within acceptable limits. EKG performed upon patient's initial arrival shows sinus tachycardia with T-wave inversions in lateral precordial leads. Patient does have some ST elevations with morphology to suggest benign e kevin repolarization. When compared to old EKG his EKG appears to be similar. Repeat EKG shows no dynamic changes. Ventricular rate 99, normal sinus rhythm,. Interval 142, QRS 90, QTc 446. Laboratory evaluation obtained. CBC, coag panel unremarkable. D-dimer 0.34. Metabolic panel is negative. Cardiac enzymes shows troponin 0.020. Chest x-ray shows pulmonary venous hypertension and interstitial edema. There is no cardiomegaly.. Serial EKGs don't show any dynamic changes. Pending BNP. Patient reevaluated at bedside in stable medical condition. He is eating without any conversations and appears comfortable. Patient be admitted for serial troponins and cardiology consultation. Case is discussed with Dr. Champion who is willing to accept patients care. EKG interpretation: Ventricular rate 104, sinus tachycardia, AZ interval 140, QRS 92, QTc 444. No AZ prolongation, no QTC prolongation, no ST or T-wave changes noted. EKG compared to 01/12/2019 showing no changes. Overall, this EKG is unremarkable - Related Data Home Medications Medication Instructions Recorded Confirmed No Known Home Medications 03/03/20 03/03/20 Allergies Allergy/AdvReac Type Severity Reaction Status Date / Time Iodinated Contrast Media AdvReac Nausea & Verified 03/03/20 17:13 Vomiting shellfish derived [Shellfish] AdvReac Nausea & Verified 03/03/20 17:13 Vomiting Review of Systems ROS Statement: Those systems with pertinent positive or pertinent negative responses have been documented in the HPI. ROS Other: All systems not noted in ROS Statement are negative. 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 History of Any Multi-Drug Resistant Organisms: None Reported Additional Past Surgical History / Comment(s): colonscopy with bowel perforation-laparotomy with bowel resection and colostomy/appendectomy-colostomy eventually reversed. Past Anesthesia/Blood Transfusion Reactions: No Reported Reaction Past Psychological History: Anxiety Smoking Status: Current every day smoker Past Alcohol Use History: None Reported Past Drug Use History: Marijuana - Past Family History Father Additional Family Medical History / Comment(s): Father had pacemaker. Mother Family Medical History: Dementia General Exam Limitations: no limitations Course Vital Signs 03/03/20 03/03/20 16:09 17:52 Temperature 98.1 F Pulse Rate 99 Respiratory 18 18 Rate Blood Pressure 115/84 O2 Sat by Pulse 97 Oximetry Medical Decision Making - Lab Data Result diagrams: 03/03/20 16:48 03/03/20 16:48 Lab Results 03/03/20 03/03/20 03/03/20 Range/Units 16:48 16:48 16:48 WBC 7.5 (3.8-10.6) k/uL RBC 5.04 (4.30-5.90) m/uL Hgb 16.1 (13.0-17.5) gm/dL Hct 49.8 (39.0-53.0) % MCV 98.7 (80.0-100.0) fL MCH 31.9 (25.0-35.0) pg MCHC 32.3 (31.0-37.0) g/dL RDW 13.1 (11.5-15.5) % Plt Count 212 (150-450) k/uL Neutrophils % 67 % Lymphocytes % 22 % Monocytes % 7 % Eosinophils % 2 % Basophils % 1 % Neutrophils # 5.0 (1.3-7.7) k/uL Lymphocytes # 1.7 (1.0-4.8) k/uL Monocytes # 0.5 (0-1.0) k/uL Eosinophils # 0.2 (0-0.7) k/uL Basophils # 0.1 (0-0.2) k/uL PT 10.0 (9.0-12.0) sec INR 1.0 (<1.2) APTT 25.3 (22.0-30.0) sec D-Dimer 0.34 (<0.60) mg/L FEU Sodium 138 (137-145) mmol/L Potassium 4.3 (3.5-5.1) mmol/L Chloride 106 (98-107) mmol/L Carbon Dioxide 24 (22-30) mmol/L Anion Gap 8 mmol/L BUN 16 (9-20) mg/dL Creatinine 0.92 (0.66-1.25) mg/dL Est GFR (CKD-EPI)AfAm >90 (>60 ml/min/1.73 sqM) Est GFR (CKD-EPI)NonAf >90 (>60 ml/min/1.73 sqM) Glucose 92 (74-99) mg/dL Calcium 9.7 (8.4-10.2) mg/dL Magnesium 1.9 (1.6-2.3) mg/dL Total Bilirubin 0.7 (0.2-1.3) mg/dL AST 29 (17-59) U/L ALT 26 (4-49) U/L Alkaline Phosphatase 71 (38-126) U/L Troponin I (0.000-0.034) ng/mL Total Protein 7.3 (6.3-8.2) g/dL Albumin 4.2 (3.5-5.0) g/dL 03/03/20 Range/Units 16:48 WBC (3.8-10.6) k/uL RBC (4.30-5.90) m/uL Hgb (13.0-17.5) gm/dL Hct (39.0-53.0) % MCV (80.0-100.0) fL MCH (25.0-35.0) pg MCHC (31.0-37.0) g/dL RDW (11.5-15.5) % Plt Count (150-450) k/uL Neutrophils % % Lymphocytes % % Monocytes % % Eosinophils % % Basophils % % Neutrophils # (1.3-7.7) k/uL Lymphocytes # (1.0-4.8) k/uL Monocytes # (0-1.0) k/uL Eosinophils # (0-0.7) k/uL Basophils # (0-0.2) k/uL PT (9.0-12.0) sec INR (<1.2) APTT (22.0-30.0) sec D-Dimer (<0.60) mg/L FEU Sodium (137-145) mmol/L Potassium (3.5-5.1) mmol/L Chloride (98-107) mmol/L Carbon Dioxide (22-30) mmol/L Anion Gap mmol/L BUN (9-20) mg/dL Creatinine (0.66-1.25) mg/dL Est GFR (CKD-EPI)AfAm (>60 ml/min/1.73 sqM) Est GFR (CKD-EPI)NonAf (>60 ml/min/1.73 sqM) Glucose (74-99) mg/dL Calcium (8.4-10.2) mg/dL Magnesium (1.6-2.3) mg/dL Total Bilirubin (0.2-1.3) mg/dL AST (17-59) U/L ALT (4-49) U/L Alkaline Phosphatase (38-126) U/L Troponin I 0.020 (0.000-0.034) ng/mL Total Protein (6.3-8.2) g/dL Albumin (3.5-5.0) g/dL Disposition Clinical Impression: Chest pain Disposition: ADMITTED IP TO THIS HOSP Condition: Fair Referrals: None,Stated [Primary Care Provider] - 1-2 days Decision Time: 18:30
--- NOTE | 2020-03-03 17:57 | XR ---
EXAMINATION TYPE: XR chest 1V portable DATE OF EXAM: 03/03/2020 COMPARISON: Prior chest x-ray 01/12/2019 HISTORY: Chest pain TECHNIQUE: Single frontal view of the chest is obtained. FINDINGS: The heart is enlarged. Interstitium is increased. No pneumothorax or pleural effusion. Caitlin tral pulmonary vascularity is prominent, this perihilar vascular indistinctness. Aorta is dense. Ther e are overlying cardiac leads. IMPRESSION: Correlate for pulmonary venous hypertension and interstitial edema. New cardiomegaly.
[2020-03-03 17:58] LABS: ALT 26 U/L (4-49); AST 29 U/L (17-59); African American GFR (CKD) >90 (>60 ml/min/1.73 sqM); Albumin 4.2 g/dL (3.5-5.0); Alkaline Phosphatase 71 U/L (38-126); Anion Gap 8 mmol/L; Blood Urea Nitrogen 16 mg/dL (9-20); Calcium 9.7 mg/dL (8.4-10.2); Carbon Dioxide 24 mmol/L (22-30); Chloride 106 mmol/L (98-107); Glucose 92 mg/dL (74-99); Magnesium 1.9 mg/dL (1.6-2.3); Non-African American GFR(CKD) >90 (>60 ml/min/1.73 sqM); Potassium 4.3 mmol/L (3.5-5.1); Sodium 138 mmol/L (137-145); Total Bilirubin 0.7 mg/dL (0.2-1.3); Total Protein 7.3 g/dL (6.3-8.2)
[2020-03-03 18:00] LABS: Basophils # (A) 0.1 k/uL (0-0.2); Basophils % (A) 1 %; Eosinophils # (A) 0.2 k/uL (0-0.7); Eosinophils % (A) 2 %; HCT 49.8 % (39.0-53.0); HGB 16.1 gm/dL (13.0-17.5); Lymphocytes # (A) 1.7 k/uL (1.0-4.8); Lymphocytes % (A) 22 %; MCH 31.9 pg (25.0-35.0); MCHC 32.3 g/dL (31.0-37.0); MCV 98.7 fL (80.0-100.0); Mean Platelet Volume 7.8; Monocytes # (A) 0.5 k/uL (0-1.0); Monocytes % (A) 7 %; Neutrophils % (A) 67 %; Platelet Count 212 k/uL (150-450); RBC 5.04 m/uL (4.30-5.90); RDW 13.1 % (11.5-15.5); WBC 7.5 k/uL (3.8-10.6)
[2020-03-03 18:14] LABS: D-Dimer 0.34 mg/L FEU (<0.60); Partial Thromboplastin Time 25.3 sec (22.0-30.0)
[2020-03-03] MEDS ORDERED: ASPIRIN 81 MG PO STA (18:27)
[2020-03-03] MEDS ORDERED: IPRATROPIUM-ALBUTEROL 3 ML NEB INHALATION PRN (21:19)
[2020-03-03] MEDS ORDERED: FUROSEMIDE 10 MG/ML 2 ML VIAL IV ONE (21:35)
--- NOTE | 2020-03-03 21:41 | P.HPIM ---
History of Present Illness H&P Date: 03/03/20 Chief Complaint: Chest pain Patient is a 54-year-old male with a known history of asthma/COPD, currently everyday smoker, anxiety, marijuana use and osteoarthritis as well as chronic mid and low back pain was sent to ER from urgent care facility due to abnormal EKG. Patient states that he has been having chest pressure and tightness in the midsternal region and also feeling very tired and lack of energy. Chest pain is mainly in the mid retrosternal and radiating to the mid back. No associated nausea or vomiting. No diaphoresis. No headache or dizziness or lightheadedness. Patient was seen by his physician 2 weeks ago and was started on steroids and antibiotics. Patient was also given Lasix. Patient felt better after 1 or 2 days and was able to workout in the yard. During the last 2 days patient was again started having symptoms of tiredness and exertional dyspnea and fatigue. Patient could not lay flat last night and was not able to sleep well. Patient presented to ER after urgent care visit. Denied any nausea vomiting or abdominal pain or diarrhea. Notes recent illnesses otherwise no sick contacts. No recent travel. Denies any history of DVT or PE in the past. Laboratory data showed d-dimer 0.34 not elevated Troponin times one 0.02 and proBNP 4800 Chest x-ray correlate for pulmonary venous hypertension and interstitial edema new cardiomegaly. EKG showed sinus tachycardia. T wave inversions noted in the lateral leads. Review of Systems Constitutional: Patient denies any fever or chills . generalized weakness and fatigue Abdomen: Patient denied nausea vomiting and diarrhea and abdominal pain. Cardiovascular: Patient does have chest pressure and short of breath no palpitations. Respiratory: patient denied any cough is from production. No shortness of breath Neurologic: Patient denied any numbness or tingling headache. Musculoskeletal: Patient denies any complaints of joint swelling or deformity. Skin: Negative Psychiatric: Negative Endocrine: No heat or cold intolerance. No recent weight gain. Genitourinary: No dysuria or hematuria. All other 14 point ROS negative except the above Past Medical History Past Medical History: Asthma, COPD, Hypertension, Osteoarthritis (OA) Additional Past Medical History / Comment(s): Pt states he recently has been treated for upper respiratory infection, kidney stones, chronic mid and low back pain, prostate problems-pt states damaged during laparotomy surgery, migraines, bronchial asthma. History of Any Multi-Drug Resistant Organisms: None Reported Additional Past Surgical History / Comment(s): colonscopy with bowel perforation-laparotomy with bowel resection and colostomy/appendectomy-colostomy eventually reversed. Past Anesthesia/Blood Transfusion Reactions: No Reported Reaction Past Psychological History: Anxiety Smoking Status: Current every day smoker Past Alcohol Use History: None Reported Past Drug Use History: Marijuana - Past Family History Father Additional Family Medical History / Comment(s): Father had pacemaker. Mother Family Medical History: Dementia Medications and Allergies Home Medications Medication Instructions Recorded Confirmed Type No Known Home Medications 03/03/20 03/03/20 History Allergies Allergy/AdvReac Type Severity Reaction Status Date / Time Iodinated Contrast Media AdvReac Nausea & Verified 03/03/20 17:13 Vomiting shellfish derived [Shellfish] AdvReac Nausea & Verified 03/03/20 17:13 Vomiting Physical Exam Vitals: Vital Signs Temp Pulse Resp BP Pulse Ox 03/03/20 19:08 98.4 F 97 18 118/84 100 03/03/20 17:52 18 03/03/20 16:09 98.1 F 99 18 115/84 97 Intake and Output 03/03/20 03/03/20 03/03/20 06:59 14:59 22:59 Other: Weight 73.482 kg PHYSICAL EXAMINATION: Patient is lying in the bed comfortably, no acute distress, awake alert and oriented.. HEENT: Normocephalic. Neck is supple. Pupils reactive. Nostrils clear. Oral cavity is moist. Ears reveal no drainage. Neck reveals no JVD, carotid bruits, or thyromegaly. CHEST EXAMINATION: Trachea is central. Symmetrical expansion. Lung blake clear to auscultation and percussion. CARDIAC: Normal S1, S2 with no gallops. No murmurs ABDOMEN: Soft. Bowel sounds normal. No organomegaly. No abdominal bruits. Extremities: reveal no edema. No clubbing or cyanosis Neurologically awake, alert, oriented x3 with well-coordinated movements. No focal deficits noted Skin: No rash or skin lesions. Psychiatric: Coperative. Nonsuicidal Musculoskeletal: No joint swelling or deformity. Normal range of motion. Results CBC & Chem 7: 03/03/20 16:48 03/03/20 16:48 Thrombosis Risk Factor Assmnt - DVT/VTE Prophylaxis DVT/VTE Prophylaxis: Pharmacologic Prophylaxis ordered Assessment and Plan Assessment: Chest pressure with exertional dyspnea. Rule out ACS and possible pericarditis. Abnormal EKG with T wave inversions in the lateral leads. Generalized weakness and fatigue Elevated BNP level with interstitial edema on the chest x-ray. Ongoing nicotine addiction Hypertension Osteoarthritis History of colonoscopy with bowel perforation-laparotomy with bowel resection- colostomy eventually reversal. Anxiety History of marijuana use DVT prophylaxis Plan: Patient will be continued on telemetry monitoring. Serial EKG and troponin x3. Continue with aspirin and lipid profile was ordered. Will check TSH level and CRP level. 2D echocardiogram will be ordered. Cardiology was consulted. Smoking cessation has been counseled extensively. Time with Patient: Greater than 30
[2020-03-03 23:22] LABS: C Reactive Protein <5.0 mg/L (<10.0)
[2020-03-04] MEDS: NICOTINE 21MG/24HR PATCH TRANSDERM SCH ×2 (00:38→09:33)
[2020-03-04 04:50] LABS: Cholesterol 208 mg/dL (<200); HDL Cholesterol 51 mg/dL (40-60); LDL Cholesterol,Calculated 136 mg/dL (0-99); Triglycerides 106 mg/dL (<150)
[2020-03-04] MEDS: NITROGLYCERIN SL TABS 0.4 MG TAB SUBLINGUAL PRN (06:41)
[2020-03-04] MEDS ORDERED: ASPIRIN 325 MG TAB PO SCH (09:00)
[2020-03-04] MEDS: METOPROLOL TARTRATE 25 MG TAB PO SCH ×2 (09:33→20:22)
[2020-03-04] MEDS: ATORVASTATIN 40 MG TAB PO SCH (09:33)
[2020-03-04] MEDS ORDERED: SODIUM CHLORIDE 0.9% 1,000 ML in EMPTY BAG 1 BAG IV ONE (10:18)
[2020-03-04] MEDS ORDERED: ALPRAZolam 0.25 MG TAB PO PRN (10:18)
--- NOTE | 2020-03-04 10:26 | P.CRDCN ---
History of Present Illness History of present illness: HISTORY OF PRESENTING ILLNESS This is a pleasant 54-year-old male past medical history significant for chronic daily nicotine and marijuana dependence. 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 We have been asked to see in consultation for chest pain. He states he has been experiencing a discomfort in his chest intermittently for the previous couple of months. He has come to the emergency department on a couple occasions however left AGAINST MEDICAL ADVICE. He also has gone to the walk-in clinic on a couple of occasions. Most recently his symptoms have intensified over the previous one week. He states it feels as though there is a heavy pressure sensation like an elephant sitting on his chest. It is worse with activity or exertion. For example last week he was in his backyard attempting to walk from his back porch to the fence and he had to stop due to the discomfort in his chest and shortness of breath. he did go to the walk-in clinic after that episode and was started on a course of antibiotics, steroids and oral Lasix. He states he felt well for about one week while taking the medications and then once he finished the course his symptoms returned. Tuesday night he was up all night with sh ortness of breath, inability to lay flat and chest discomfort prompting him to come to ER yesterday for further evaluation. This morning he had an episode of chest discomfort associated with acute diaphoresis and shortness of breath. Telemetry tracings at that time revealed he was having nonsustained ventricular tachycardia. Two separate occasions he had a 4 beat run. DIAGNOSTICS EKG reveals sinus tachycardia heart rate of 104, right axis deviation, LVH and T-wave inversions laterally. Chest xray reveals pulmonary venous hypertension and interstitial edema. Laboratory reviewed, CBC unremarkable, d-dimer 0.34, sodium 138, potassium 4.3, creatinine 0.92, cardiac enzymes negative x3, CRP less than 5, NTproBNP 4800, LDL 136, HDL 51 and TSG 2.57. He takes no daily cardiac medications. REVIEW OF SYSTEMS At the time of my exam: CONSTITUTIONAL: Denies fever or chills. CARDIOVASCULAR: Complains of exertional chest pain and shortness of breath. Denies orthopnea, PND or palpitations. RESPIRATORY: Denies cough. GASTROINTESTINAL: Denies abdominal pain, diarrhea, constipation, nausea or vo miting. MUSCULOSKELETAL: Denies myalgias. NEUROLOGIC: Denies numbness, tingling or weakness. ENDOCRINE: Denies fatigue, weight change, polydipsia or polyurina. GENITOURINARY: Denies burning, hematuria or urgency with micturation. HEMATOLOGIC: Denies history of anemia or bleeding. PHYSICAL EXAMINATION Blood pressure 126/80 heart rate 114 afebrile and maintaining oxygen saturation on nasal cannula. CONSTITUTIONAL: No apparent distress. HEENT: Head is normocephalic. Pupils are equal, round. Sclerae anicteric. Mucous membranes of the mouth are moist. No JVD. No carotid bruit. CHEST EXAMINATION: Lungs are clear to auscultation. No chest wall tenderness is noted on palpation or with deep breathing. HEART EXAMINATION: Regular rate and rhythm. S1, S2 heard. Systolic ejection murmur at the left sternal border, no gallops or rub. ABDOMEN: Soft, nontender. Positive bowel sounds. EXTREMITIES: 2+ peripheral pulses, no lower extremity edema and no calf tenderness. NEUROLOGIC EXAMINATION: Patient is awake, alert and oriented x3. ASSESSMENT Unstable angina Non-sustained ventricular tachycardia Dyslipidemia Chronic nicotine and marijuana dependence PLAN Symptoms concerning for underlying coronary artery disease. Recommend proceeding with cardiac catheterization. I have discussed the risks, benefits and alternative therapies for the above-mentioned procedure and for both sedation/analgesia as well as necessary blood product administration, if indicated, as they pertain to this patient. The patient has indicated understanding and acceptance of the risks and procedures discussed. Questions have been answered appropriately and he is agreeable to proceed with above stated procedure. Obtain 2D echocardiogram and doppler study to assess cardiac structure and function. Initiate lopressor 25 mg BID, aspirin 81 mg daily and atorvastatin 40 mg daily. Lifestyle modifications recommended, specifically tobacco and marijuana cessation. Further recommendations to follow based on clinical course. Thank you kindly for this consultation. Nurse Practitioner note has been reviewed, I agree with a documented findings and plan of care. Patient was seen and examined. 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 History of Any Multi-Drug Resistant Organisms: None Reported Additional Past Surgical History / Comment(s): colonscopy with bowel perforation-laparotomy with bowel resection and colostomy/appendectomy-colostomy eventually reversed. Past Anesthesia/Blood Transfusion Reactions: No Reported Reaction Past Psychological History: Anxiety Smoking Status: Current every day smoker Past Alcohol Use History: None Reported Past Drug Use History: Marijuana - Past Family History Father Additional Family Medical History / Comment(s): Father had pacemaker. Mother Family Medical History: Dementia Medications and Allergies Home Medications Medication Instructions Recorded Confirmed Type No Known Home Medications 03/03/20 03/03/20 History Allergies Allergy/AdvReac Type Severity Reaction Status Date / Time Iodinated Contrast Media AdvReac Nausea & Verified 03/03/20 17:13 Vomiting shellfish derived [Shellfish] AdvReac Nausea & Verified 03/03/20 17:13 Vomiting Physical Exam Vitals: Vital Signs Temp Pulse Pulse Resp BP BP Pulse Ox 03/04/20 09:13 114 H 03/04/20 06:45 114/72 03/04/20 06:39 113/79 03/04/20 00:26 98.3 F 97 16 107/73 97 03/03/20 21:26 18 118/80 98 03/03/20 19:08 98.4 F 97 18 118/84 100 03/03/20 17:52 18 03/03/20 16:09 98.1 F 99 18 115/84 97 Intake and Output 03/03/20 03/04/20 03/04/20 22:59 06:59 14:59 Intake Total 400 Balance 400 Intake: Oral 400 Other: Weight 72.575 kg 71.3 kg Results 03/03/20 16:48 03/03/20 16:48 Cardiac Enzymes 03/03/20 03/03/20 03/03/20 Range/Units 16:48 16:48 22:39 AST 29 (17-59) U/L Troponin I 0.020 0.024 (0.000-0.034) ng/mL 03/04/20 Range/Units 03:51 AST (17-59) U/L Troponin I 0.026 (0.000-0.034) ng/mL Coagulation 03/03/20 Range/Units 16:48 PT 10.0 (9.0-12.0) sec APTT 25.3 (22.0-30.0) sec Lipids 03/04/20 Range/Units 03:51 Triglycerides 106 (<150) mg/dL Cholesterol 208 H (<200) mg/dL HDL Cholesterol 51 (40-60) mg/dL CBC 03/03/20 Range/Units 16:48 WBC 7.5 (3.8-10.6) k/uL RBC 5.04 (4.30-5.90) m/uL Hgb 16.1 (13.0-17.5) gm/dL Hct 49.8 (39.0-53.0) % Plt Count 212 (150-450) k/uL Comprehensive Metabolic Panel 03/03/20 Range/Units 16:48 Sodium 138 (137-145) mmol/L Potassium 4.3 (3.5-5.1) mmol/L Chloride 106 (98-107) mmol/L Carbon Dioxide 24 (22-30) mmol/L BUN 16 (9-20) mg/dL Creatinine 0.92 (0.66-1.25) mg/dL Glucose 92 (74-99) mg/dL Calcium 9.7 (8.4-10.2) mg/dL AST 29 (17-59) U/L ALT 26 (4-49) U/L Alkaline Phosphatase 71 (38-126) U/L Total Protein 7.3 (6.3-8.2) g/dL Albumin 4.2 (3.5-5.0) g/dL Current Medications Generic Name Dose Route Start Last Admin Trade Name Freq PRN Reason Stop Dose Admin Albuterol/Ipratropium 3 ml 03/03/20 21:19 Duoneb 0.5 Mg-3 Mg/3 Ml Soln INHALATION RT-QID PRN Shortness Of Breath Or Wheezing Aspirin 325 mg 03/04/20 09:00 03/04/20 09:33 Aspirin PO 325 mg DAILY URSZULA Administration Atorvastatin Calcium 40 mg 03/04/20 09:00 03/04/20 09:33 Lipitor PO 40 mg DAILY URSZULA Administration Metoprolol Tartrate 25 mg 03/04/20 09:15 03/04/20 09:33 Lopressor PO 25 mg BID URSZULA Administration Nicotine 1 patch 03/03/20 22:45 03/04/20 09:33 Habitrol 21mg/24hr Patch TRANSDERM 1 patch DAILY URSZULA Administration Nitroglycerin 0.4 mg 03/03/20 18:27 03/04/20 06:41 Nitrostat SUBLINGUAL 0.4 mg Q5M PRN Administration Chest Pain Intake and Output 03/03/20 03/04/20 03/04/20 22:59 06:59 14:59 Intake Total 400 Balance 400 Intake: Oral 400 Other: Weight 72.575 kg 71.3 kg 03/03/20 16:48 03/03/20 16:48
[2020-03-04] MEDS ORDERED: predniSONE 50 MG TAB PO ONE ×2 (11:00→17:00)
[2020-03-04] MEDS ORDERED: HEPARIN SOD,PORK IN 0.45% NACL 25,000 UNIT in 0.45% NACL 1 250ML.BAG IV SCH (15:45)
[2020-03-04] MEDS: NITROGLYCERIN OINT 1 INCH/GM PACKET TOPICAL SCH (22:23)
[2020-03-05] MEDS: NICOTINE 21MG/24HR PATCH TRANSDERM SCH ×2 (00:11→17:40)
[2020-03-05] MEDS ORDERED: HEPARIN SODIUM,PORCINE 5,000 UNIT/ML 1 ML VIAL IV STA (00:14)
[2020-03-05] MEDS: NITROGLYCERIN OINT 1 INCH/GM PACKET TOPICAL SCH (05:10)
[2020-03-05] MEDS: METOPROLOL TARTRATE 25 MG TAB PO SCH ×2 (05:10→20:31)
[2020-03-05] MEDS: ATORVASTATIN 40 MG TAB PO SCH (05:10)
[2020-03-05] MEDS ORDERED: ASPIRIN 325 MG TAB PO ONE (06:00)
[2020-03-05] MEDS ORDERED: diphenhydrAMINE 50 MG CAP PO ONE (06:00)
[2020-03-05] MEDS ORDERED: predniSONE 50 MG TAB PO ONE (06:00)
[2020-03-05 06:53] LABS: Glucose,Whole Blood 134 mg/dL (75-99)
[2020-03-05] MEDS ORDERED: LIDOCAINE 1% INJ 10MG/ML (20 ML MDV) ONE (10:19)
[2020-03-05] MEDS ORDERED: fentaNYL (PF) 50 MCG/ML 2 ML AMP ONE (10:20)
--- NOTE | 2020-03-05 10:36 | ECHOF ---
Referral Reason:exertional sob MEASUREMENTS -------- HEIGHT: 177.8 cm WEIGHT: 71.2 kg BP: 114/72 RVIDd: 4.1 cm (< 3.3) IVSd: 1.0 cm (0.6 - 1.1) LVIDd: 6.3 cm (3.9 - 5.3) LVPWd: 1.1 cm (0.6 - 1.1) IVSs: 1.1 cm LVIDs: 5.7 cm LVPWs: 1.4 cm LAESV Index (A-L): 61.85 ml/m Ao Diam: 3.5 cm (2.0 - 3.7) AV Cusp: 2.3 cm (1.5 - 2.6) MV EXCURSION: 19.089 mm (> 18.000) MV EF SLOPE: 114 mm/s (70 - 150) EPSS: 2.6 cm MV E Enrico: 1.03 m/s MV DecT: 139 ms MV A Enrico: 0.55 m/s MV E/A Ratio: 1.87 RAP: 20.00 mmHg RVSP: 76.32 mmHg FINDINGS -------- Sinus rhythm. This was a technically good study. The left ventricle is mildly dilated. Left ventricular wall thickness is normal. There is severe global hypokinesis of LV . Overall left ventricular systolic function is severely impaired with, an EF between 20 - 25 %. Mitral Doppler inflow pattern suggests diastolic filling abnormality {E/E'}. The right ventricle is mild to moderately enlarged. LA is severely dilated >40 ml/m2 The right atrium is moderately enlarged. Interatrial and interventricular septum intact. There is no evidence of aortic regurgitation. There is no evidence of aortic stenosis. Mild mitral annular calcification present. Severe mitral regurgitation is present. Moderate to severe tricuspid regurgitation present. There is moderate to severe pulmonary hypertens ion. The right ventricular systolic pressure, as measured by Doppler, is 76.32mmHg. There is no pulmonic regurgitation present. The aortic root size is normal. The inferior vena cava is dilated with poor inspiratory collapse which is consistent with estimated r ight atrial pressure of 20 mmHg. There is no pericardial effusion. CONCLUSIONS -------- 1. Sinus rhythm. 2. This was a technically good study. 3. The left ventricle is mildly dilated. 4. Left ventricular wall thickness is normal. 5. There is severe global hypokinesis of LV . 6. Mitral Doppler inflow pattern suggest diastolic filling abnormality {E/E'}. 7. The right ventricle is mild to moderately enlarged. 8. LA is severely dilated >40 ml/m2 9. The right atrium is moderately enlarged. 10. Interatrial and interventricular septum intact. 11. There is no evidence of aortic regurgitation. 12. There is no evidence of aortic stenosis. 13. Mild mitral annular calcification present. 14. Severe mitral regurgitation is present. 15. Moderate to severe tricuspid regurgitation present. 16. There is moderate to severe pulmonary hypertension. 17. The right ventricular systolic pressure, as measured by Doppler, is 76.32mmHg. 18. There is no pulmonic regurgitation present. 19. The aortic root size is normal. 20. The inferior vena cava is dilated with poor inspiratory collapse which is consistent with estimat ed right atrial pressure of 20 mmHg. 21. There is no pericardial effusion. PEDIATRIC SPEECH LANGUAGE PATHOLOGIST: Daja Arcos RDCS
[2020-03-05] MEDS ORDERED: MIDAZOLAM 2 MG/2 ML VIAL IV ONE ×2 (10:50)
[2020-03-05] MEDS ORDERED: fentaNYL (PF) 50 MCG/ML 2 ML AMP IV ONE ×2 (10:50)
[2020-03-05] MEDS ORDERED: LIDOCAINE 2% INJ 20 MG/ML SQ ONE (10:53)
[2020-03-05] MEDS ORDERED: IV FLUID CONTINUATION 600 ML IV ONE (10:54)
--- NOTE | 2020-03-05 10:59 | P.PN ---
Subjective Progress Note Date: 03/04/20 Principal diagnosis: unstable angina Patient is a 54-year-old male with a known history of asthma/COPD, currently everyday smoker, anxiety, marijuana use and osteoarthritis as well as chronic mid and low back pain was sent to ER from urgent care facility due to abnormal EKG. Patient states that he has been having chest pressure and tightness in the midsternal region and also feeling very tired and lack of energy. Chest pain is mainly in the mid retrosternal and radiating to the mid back. No associated nausea or vomiting. No diaphoresis. No headache or dizziness or lightheadedness. Patient was seen by his physician 2 weeks ago and was started on steroids and antibiotics. Patient was also given Lasix. Patient felt better after 1 or 2 days and was able to workout in the yard. During the last 2 days patient was again started having symptoms of tiredness and exertional dyspnea and fatigue. Patient could not lay flat last night and was not able to sleep well. Patient presented to ER after urgent care visit. Denied any nausea vomiting or abdominal pain or diarrhea. Notes recent illnesses otherwise no sick contacts. No recent travel. Denies any history of DVT or PE in the past. Laboratory data showed d-dimer 0.34 not elevated Troponin times one 0.02 and proBNP 4800 Chest x-ray correlate for pulmonary venous hypertension and interstitial edema new cardiomegaly. EKG showed sinus tachycardia. T wave inversions noted in the lateral leads. 03/04/2020 Patient is still having retrosternal chest pain going to the back. patient says that pain gets worse with sitting and leaning forward. Currently lying in the bed Shortness of breath present but not worsening. No complaints of nausea vomiting or abdominal pain. No diarrhea. Troponin 3 negative. Cardiology is planning for cardiac catheterization tomor morning. 2-D echocardiogram was ordered. Current medications reviewed. Objective - Vital Signs Vital signs: Vital Signs Temp 98.3 F 03/04/20 19:45 Pulse 94 03/04/20 19:45 Resp 16 03/04/20 19:45 BP 116/68 03/04/20 19:45 Pulse Ox 92 L 03/04/20 19:45 Intake & Output 03/04/20 03/04/20 03/05/20 06:59 18:59 06:59 Intake Total 1160 Balance 1160 Weight 71.3 kg 71.3 kg Intake: Oral 660 Other 500 - Exam PHYSICAL EXAMINATION: Patient is lying in the bed comfortably, no acute distress, awake alert and oriented.. HEENT: Normocephalic. Neck is supple. Pupils reactive. Nostrils clear. Oral cavity is moist. Ears reveal no drainage. Neck reveals no JVD, carotid bruits, or thyromegaly. CHEST EXAMINATION: Trachea is central. Symmetrical expansion.bilateral prolonged expiration. Lung blake clear to auscultation and percussion. CARDIAC: Normal S1, S2 with no gallops. No murmurs ABDOMEN: Soft. Bowel sounds normal. No organomegaly. No abdominal bruits. Extremities: reveal no edema. No clubbing or cyanosis Neurologically awake, alert, oriented x3 with well-coordinated movements. No focal deficits noted Skin: No rash or skin lesions. Psychiatric: Coperative. Nonsuicidal Musculoskeletal: No joint swelling or deformity. Normal range of motion. - Labs CBC & Chem 7: 03/03/20 16:48 03/03/20 16:48 Labs: Abnormal Lab Results - Last 24 Hours (Table) 03/04/20 Range/Units 03:51 Cholesterol 208 H (<200) mg/dL LDL Cholesterol, Calc 136 H (0-99) mg/dL Assessment and Plan Assessment: Chest pressure with exertional dyspnea likely due to unstable angina . unlikelyacute pericarditis. Abnormal EKG with T wave inversions in the lateral leads. Generalized weakness and fatigue Elevated BNP level with interstitial edema on the chest x-ray. Ongoing nicotine addiction Hypertension Osteoarthritis History of colonoscopy with bowel perforation-laparotomy with bowel resection- colostomy eventually reversal. Anxiety History of marijuana use DVT prophylaxis Plan: Patient will be continued on telemetry monitoring. Serial EKG and troponin x3. Continue with aspirin and lipid profile was ordered. TSH and CRP levels within normal limits.. 2D echocardiogram was done. Cardiology is following and planning for cardiac catheterization tomorrow.. Smoking cessation has been counseled extensively. Time with Patient: Greater than 30
[2020-03-05] MEDS ORDERED: IOPAMIDOL-370 125ML BTL INJ ONE ×2 (11:00)
[2020-03-05] MEDS ORDERED: RX INFO: IV CONTRAST WAS GIVEN 1 EACH MISC MISCELLANE PRN (11:21)
[2020-03-05] MEDS ORDERED: MORPHINE SULFATE 2 MG/ML SYRINGE IVP STA ×2 (12:16→13:57)
[2020-03-05] MEDS ORDERED: MORPHINE SULFATE 4 MG/ML SYRINGE IVP STA (12:25)
[2020-03-05] MEDS: LISINOPRIL 5 MG TAB PO SCH (12:32)
[2020-03-05] MEDS: ALPRAZolam 0.5 MG TAB PO PRN ×2 (12:32→20:31)
[2020-03-05] MEDS ORDERED: ONDANSETRON 4 MG/2 ML VIAL IVP PRN (12:35)
--- NOTE | 2020-03-05 13:46 | P.GSCN ---
<Rita Zuluaga - Last Filed: 03/05/20 15:30> History of Present Illness Consult date: 03/05/20 Reason for Consult: Severe mitral regurgitation Requesting physician: Suri Manning History of present illness: This is a 54-year-old gentleman who doesn't see a physician on a regular basis. He has a previous medical history of hypertension, degenerative joint disease, broken back, peritonitis in 2007 with emergent surgery to place colostomy and subsequent reversal, current tobacco dependence, and current daily marijuana use. He states for approximately 2 months he has been laid up and unable to work due to chest pressure and shortness of breath. He chose not to see a doctor until approximately 2 weeks ago when he visited an urgent care clinic. States he was told he had fluid in his lungs and his heart, was given antibiotics, steroids, and Lasix and states he did feel better while on treatment. Once he was done with his treatment he began to feel shortness of breath and chest pressure again. States he can do only a minimum of activity before becoming so symptomatic that he has to stop what he is doing. Associated symptoms include lightheadedness and dizziness, denies any lower extremity edema, nausea, fevers or chills. He presented to [facility] emergency room yesterday with similar complaints. Chest x-ray demonstrated cardiomegaly with interstitial edema. EKG demonstrated normal sinus rhythm. WBC 7.5, he moglobin 16.1, creatinine 0.92, BNP 4800, troponin 0.024, TSH 2.57. The patient was admitted to observation was consulted for cardiology. Transthoracic echocardiogram was completed demonstrating global hypokinesis of the left ventricle with severely impaired systolic function, EF 20-25%, mild to m oderately enlarged right ventricle, left atrial dilation, right atrium enlargement, mild mitral annular calcification with severe mitral regurgitation, moderate to severe tricuspid regurgitation, moderate to severe pulmonary hypertension with RVSP 76.32 mmHg. The patient was recommended to undergo heart catheterization which was completed today which demonstrated normal coronaries, 3+ mitral regurgitation. Due to his transthoracic echocardiogram findings consultation was placed to Dr. Nichols from cardiothoracic surgery for recommendations. Review of Systems Review of systems was completed and was negative except as noted - Constitutional Reports chronic pain - Cardiovascular Reports as per HPI, Reports chest pain, Reports decreased exercise tolerance, Reports dyspnea on exertion, Reports lightheadedness, Reports shortness of breath - Musculoskeletal Reports low back pain Past Medical History Past Medical History: Asthma, Chest Pain / Angina, COPD, Hypertension, Osteoarthritis (OA) Additional Past Medical History / Comment(s): Pt states he recently has been treated for upper respiratory infection, kidney stones, chronic mid and low back pain, prostate problems-pt states damaged during laparotomy surgery, migraines, bronchial asthma. History of Any Multi-Drug Resistant Organisms: None Reported Additional Past Surgical History / Comment(s): colonscopy with bowel perforation-laparotomy with bowel resection and colostomy/appendectomy-colostomy eventually reversed. Past Anesthesia/Blood Transfusion Reactions: No Reported Reaction Past Psychological History: Anxiety Smoking Status: Current every day smoker Past Alcohol Use History: None Reported Past Drug Use History: Marijuana Additional Drug Use History / Comment(s): Smokes 1 pack per day 40 years, daily marijuana use - Past Family History Father Additional Family Medical History / Comment(s): Father had pacemaker. Mother Family Medical History: Dementia Additional Family Medical History / Comment(s): Thyroid cancer Medications and Allergies Home Medications Medication Instructions Recorded Confirmed Type No Known Home Medications 03/03/20 03/03/20 History Allergies Allergy/AdvReac Type Severity Reaction Status Date / Time Iodinated Contrast Media AdvReac Nausea & Verified 03/03/20 17:13 Vomiting shellfish derived [Shellfish] AdvReac Nausea & Verified 03/03/20 17:13 Vomiting Surgical - Exam Vital Signs Temp Pulse Resp BP Pulse Ox 98.1 F 99 18 115/84 97 03/03/20 16:09 03/03/20 16:09 03/03/20 16:09 03/03/20 16:09 03/03/20 16:09 - General well developed, well nourished, moderate distress, moderate pain - Eyes PERRL, normal ocular movement - ENT no hearing loss, poor halfway - Neck no masses, no bruits, trachea midline - Respiratory Lungs sounds diminished bilaterally. Respirations even, nonlabored. Currently on room air with oxygen saturation 96%. No chest wall deformities. - Cardiovascular S1, S2 present. Positive systolic murmur. Regular rate and rhythm, sinus rhythm on telemetry. Palpable peripheral pulses bilaterally. No edema present. No calf pain or tenderness noted. Right femoral artery heart catheterization site soft, no drainage. - Abdomen Abdomen: soft, non tender, bowel sounds - Genitourinary Deferred - Rectum Deferred - Integumentary no rash, no growths - Neurologic normal coordination, normal sensation - Musculoskeletal normal posture - Psychiatric oriented to time, oriented to person, oriented to place, speech is normal, memory intact Results - Labs 03/03/20 16:48 03/03/20 16:48 Abnormal Lab Results - Last 24 Hours (Table) 03/05/20 03/05/20 Range/Units 06:51 07:52 APTT 34.4 H (22.0-30.0) sec POC Glucose (mg/dL) 134 H (75-99) mg/dL - Imaging Chest x-ray: report reviewed, image reviewed EKG: image reviewed Assessment and Plan Assessment: 1. Severe mitral regurgitation on transthoracic echocardiogram 2. History of hypertension 3. History of degenerative joint disease, broken back 4. Current daily tobacco dependence 5. Current daily marijuana use Plan: The patient was seen and examined in the extended stay unit. His chart/diagnostics were reviewed. The case will be discussed in detail with Dr. Nichols. The usual perioperative course for mitral valve repair versus replacement was discussed with the patient, risks and benefits were reviewed, all questions were answered. At this time we will recommend transesophageal echocardiogram. We will initiate preoperative testing. Patient will need dental clearance prior to any surgical intervention. Once preoperative testing and transesophageal echocardiogram have been completed we will calculate an STS risk score and discussed with the patient. Patient was strongly encouraged to quit smoking. More recommendations to follow once testing is ALLYSSA are completed. Medical management for the comorbidities per primary care service. Thank you for this consult. We look forward to working with you in the care of your patient. Time with Patient: Greater than 30 <Franky Nichols - Last Filed: 03/06/20 08:23> Surgical - Exam Vital Signs Temp Pulse Resp BP Pulse Ox 98.1 F 99 18 115/84 97 03/03/20 16:09 03/03/20 16:09 03/03/20 16:09 03/03/20 16:09 03/03/20 16:09 Results - Labs 03/05/20 07:52 03/05/20 07:52 Abnormal Lab Results - Last 24 Hours (Table) 03/05/20 03/05/20 03/05/20 Range/Units 07:52 07:52 07:52 WBC 14.6 H (3.8-10.6) k/uL MCV 101.1 H (80.0-100.0) fL Neutrophils # 12.4 H (1.3-7.7) k/uL APTT 34.4 H (22.0-30.0) sec Sodium 135 L (137-145) mmol/L Carbon Dioxide 21 L (22-30) mmol/L BUN 23 H (9-20) mg/dL Glucose 136 H (74-99) mg/dL Microbiology - Last 24 Hours (Table) 03/05/20 17:12 Nasal Screen MRSA/MSSA - Preliminary Nasal Swab Diabetes panel 03/05/20 03/05/20 Range/Units 07:52 07:52 Sodium 135 L (137-145) mmol/L Potassium 4.9 (3.5-5.1) mmol/L Chloride 105 (98-107) mmol/L Carbon Dioxide 21 L (22-30) mmol/L BUN 23 H (9-20) mg/dL Creatinine 0.83 (0.66-1.25) mg/dL Glucose 136 H (74-99) mg/dL Hemoglobin A1c 5.7 (4.0-6.0) % Calcium 9.7 (8.4-10.2) mg/dL AST 26 (17-59) U/L ALT 27 (4-49) U/L Alkaline Phosphatase 78 (38-126) U/L Total Protein 7.0 (6.3-8.2) g/dL Albumin 3.9 (3.5-5.0) g/dL Calcium panel 03/05/20 Range/Units 07:52 Calcium 9.7 (8.4-10.2) mg/dL Albumin 3.9 (3.5-5.0) g/dL Pituitary panel 03/05/20 Range/Units 07:52 Sodium 135 L (137-145) mmol/L Potassium 4.9 (3.5-5.1) mmol/L Chloride 105 (98-107) mmol/L Carbon Dioxide 21 L (22-30) mmol/L BUN 23 H (9-20) mg/dL Creatinine 0.83 (0.66-1.25) mg/dL Glucose 136 H (74-99) mg/dL Calcium 9.7 (8.4-10.2) mg/dL Adrenal panel 03/05/20 Range/Units 07:52 Sodium 135 L (137-145) mmol/L Potassium 4.9 (3.5-5.1) mmol/L Chloride 105 (98-107) mmol/L Carbon Dioxide 21 L (22-30) mmol/L BUN 23 H (9-20) mg/dL Creatinine 0.83 (0.66-1.25) mg/dL Glucose 136 H (74-99) mg/dL Calcium 9.7 (8.4-10.2) mg/dL Total Bilirubin 0.5 (0.2-1.3) mg/dL AST 26 (17-59) U/L ALT 27 (4-49) U/L Alkaline Phosphatase 78 (38-126) U/L Total Protein 7.0 (6.3-8.2) g/dL Albumin 3.9 (3.5-5.0) g/dL Assessment and Plan Plan: Patient seen and examined. Cath and 2D Echo reviewed. Severe cardiomyopathy (unknown etiology) with severe functional MR and Moderate TR with dilated LA. Patient had been on some lasix and steroids prescribed by urgent care. Long time Smoker tobacco and Marijuana. Denies ETOH or illicit drugs usage. Patient to have ALLYSSA to R/O any structural problem with the MV (R/O healed endocarditis changes or perforations in view of his Hx of laparotomy and peritonitis couple of years ago). If MR is purely functional, patient would benefit from an interval to try to achieve optimum GDMT and reassessment cli nically and by echo to see if he would be candidate for MV+/-TV surgery for pure functional improvement purposes. Discussed with Dr Nelson. Franky Nichols MD
[2020-03-05 13:52] LABS: ALT 27 U/L (4-49); AST 26 U/L (17-59); African American GFR (CKD) >90 (>60 ml/min/1.73 sqM); Albumin 3.9 g/dL (3.5-5.0); Alkaline Phosphatase 78 U/L (38-126); Anion Gap 9 mmol/L; Basophils % (A) 0 %; Blood Urea Nitrogen 23 mg/dL (9-20); Calcium 9.7 mg/dL (8.4-10.2); Carbon Dioxide 21 mmol/L (22-30); Chloride 105 mmol/L (98-107); Eosinophils % (A) 0 %; Glucose 136 mg/dL (74-99); HCT 49.4 % (39.0-53.0); HGB 15.5 gm/dL (13.0-17.5); Lymphocytes # (A) 1.4 k/uL (1.0-4.8); Lymphocytes % (A) 9 %; MCH 31.8 pg (25.0-35.0); MCHC 31.4 g/dL (31.0-37.0); MCV 101.1 fL (80.0-100.0); Magnesium 1.8 mg/dL (1.6-2.3); Mean Platelet Volume 9.7; Monocytes # (A) 0.6 k/uL (0-1.0); Monocytes % (A) 4 %; Neutrophils # (A) 12.4 k/uL (1.3-7.7); Neutrophils % (A) 85 %; Non-African American GFR(CKD) >90 (>60 ml/min/1.73 sqM); Platelet Count 240 k/uL (150-450); Potassium 4.9 mmol/L (3.5-5.1); RBC 4.89 m/uL (4.30-5.90); RDW 12.9 % (11.5-15.5); Sodium 135 mmol/L (137-145); Total Bilirubin 0.5 mg/dL (0.2-1.3); WBC 14.6 k/uL (3.8-10.6)
--- NOTE | 2020-03-05 15:41 | CC ---
CARDIAC CATHETERIZATION REPORT INDICATION: Unstable angina. PROCEDURE NOTE: After obtaining informed consent, left heart catheterization and coronary angiogram were performed via the right femoral artery using standard Yamil catheters. Patient tolerated the procedure well without any obvious immediate complications. A femoral angiogram was performed and Angio-Seal was deployed for hemostasis. Patient received moderate conscious sedation. Total sedation time was 17 minutes. FINDINGS: 1. HEMODYNAMICS: Left ventricular end-diastolic pressure is 14 mm. There is no significant gradient across the aortic valve. 2. LEFT VENTRICULOGRAM: Left ventriculogram was performed in LAMA position and shows dilated left ventricle, diffuse global hypokinesis with severe LV dysfunction with an ejection fraction of 20%. There is 3+ mitral regurgitation noted. ANGIOGRAPHIC DATA: 1. LEFT MAIN CORONARY ARTERY: Left main coronary artery is a normal-sized vessel and is free of stenosis. It divides into left anterior descending coronary artery and circumflex coronary artery. LAD and its branches, circumflex coronary artery and its branches are free of significant disease. 2. RIGHT CORONARY ARTERY: Right coronary artery is a large dominant vessel and is free of significant stenosis. CONCLUSIONS: 1. Normal coronary arteries. 2. Dilated cardiomyopathy with severe LV dysfunction. 3. Three plus mitral regurgitation. PLAN: I am going to consult a cardiothoracic surgeon to evaluate the patient for mitral valve repair. I will perform a transesophageal echo on him in the meantime. MMODL / IJN: [id number] /
--- NOTE | 2020-03-05 16:36 | US ---
EXAMINATION TYPE: US carotid duplex BILAT DATE OF EXAM: 03/05/2020 COMPARISON: NONE CLINICAL HISTORY: Pre-Op Cardiac Surgery. Pre-Op hrt surgery EXAM MEASUREMENTS: RIGHT: Peak Systolic Velocity (PSV) cm/sec ----- Right CCA: 44.4 ----- Right ICA: 44.1 ----- Right ECA: 61.0 ICA/CCA ratio: 1.0 RIGHT: End Diastole cm/sec ----- Right CCA: 10.4 ----- Right ICA: 15.6 ----- Right ECA: 6.0 LEFT: Peak Systolic Velocity (PSV) cm/sec ----- Left CCA: 49.8 ----- Left ICA: 54.0 ----- Left ECA: 61.0 ICA/CCA ratio: 1.1 LEFT: End Diastole cm/sec ----- Left CCA: 14.9 ----- Left ICA: 25.2 ----- Left ECA: 4.3 VERTEBRALS (direction of flow): Right Vertebral: Antegrade Left Vertebral: Antegrade Rhythm: Normal Grayscale, color Doppler, spectral Doppler imaging performed of the carotid arteries. Waveform analys is does not show significant stenosis of the internal carotid arteries. No significant stenosis seen IMPRESSION: No hemodynamic significant stenosis of the internal carotid arteries by Doppler criteria , an indirect measurement of carotid stenosis Criteria for Assigning % of Stenosis / Diameter reduction (Estimation based on the indirect measurements of the internal carotid artery velocities (ICA PSV). 1. Normal (no stenosis)=ICA PSV < 125 cm/s: ratio < 2.0: ICA EDV<40 cm/s. 2. Less than 50% stenosis=ICA PSV < 125 cm/s: ratio < 2.0: ICA EDV<40 cm/s. 3. 50 to 69% stenosis=ICA PSV of 125 to 230 cm/s: ration 2.0 ? 4.0: ICA EDV 40-100 cm/s. 4. Greater than 70% stenosis to near occlusion= ICA PSV > 230 cm/s: ratio > 4.0: ICA EDV > 100 cm/s. 5. Near occlusion= ICA PSV velocities may be low or undetectable: variable ratio and ICA EDV. 6. Total occlusion=unable to detect flow.
[2020-03-05 19:50] LABS: Hemoglobin A1C 5.7 % (4.0-6.0)
[2020-03-05] MEDS: HYDROcodone/APAP 7.5-325MG 1 EACH TAB PO PRN (20:32)
--- NOTE | 2020-03-06 01:10 | P.PN ---
Subjective Progress Note Date: 03/05/20 Principal diagnosis: dILATED cARDIOMYOPATHY Severe MR Patient is a 54-year-old male with a known history of asthma/COPD, currently everyday smoker, anxiety, marijuana use and osteoarthritis as well as chronic mid and low back pain was sent to ER from urgent care facility due to abnormal EKG. Patient states that he has been having chest pressure and tightness in the midsternal region and also feeling very tired and lack of energy. Chest pain is mainly in the mid retrosternal and radiating to the mid back. No associated nausea or vomiting. No diaphoresis. No headache or dizziness or lightheadedness. Patient was seen by his physician 2 weeks ago and was started on steroids and antibiotics. Patient was also given Lasix. Patient felt better after 1 or 2 da ys and was able to workout in the yard. During the last 2 days patient was again started having symptoms of tiredness and exertional dyspnea and fatigue. Patient could not lay flat last night and was not able to sleep well. Patient presented to ER after urgent care visit. Denied any nausea vomiting or abdominal pain or diarrhea. Notes recent illnesses otherwise no sick contacts. No recent travel. Denies any history of DVT or PE in the past. Laboratory data showed d-dimer 0.34 not elevated Troponin times one 0.02 and proBNP 4800 Chest x-ray correlate for pulmonary venous hypertension and interstitial edema new cardiomegaly. EKG showed sinus tachycardia. T wave inversions noted in the lateral leads. 03/04/2020 Patient is still having retrosternal chest pain going to the back. patient says that pain gets worse with sitting and leaning forward. Currently lying in the bed Shortness of breath present but not worsening. No complaints of nausea vom iting or abdominal pain. No diarrhea. Troponin 3 negative. Cardiology is planning for cardiac catheterization tomorrow morning. 2-D echocardiogram was ordered. 03/05/2020 Patient had cardiac catheterization done today showed normal coronaries. Severely dilated left ventricle with ejection fraction 20%. TTE showed severe mitral regurgitation. General surgery was consulted for mitral valve repair surgery. ALLYSSA tomorrow. Cardiothoracic surgery was consulted. Cardiology is on board. Patient states that his pain is better today. Was started on Lasix 40 mg daily. Current medications reviewed. Objective - Vital Signs Vital signs: Vital Signs Temp 97.9 F 03/05/20 20:00 Pulse 89 03/05/20 20:00 Resp 18 03/05/20 20:00 BP 110/68 03/05/20 20:00 Pulse Ox 96 03/05/20 20:00 Intake & Output 03/05/20 03/05/20 03/06/20 06:59 18:59 06:59 Intake Total 551.585 730 Balance 551.585 730 Intake: IV 250 Intake, IV Titration 71.585 Amount Heparin Sod,Pork in 0.45% 71.585 NaCl 25,000 unit In 0.45 % NaCl 1 250ml.bag @ 12 UNITS/KG/HR 8.556 mls/hr IV .Q24H [id number] Rx#: [id number] Oral 480 480 Other: Voiding Method Toilet Toilet Urinal Urinal # Voids 1 1 - Exam PHYSICAL EXAMINATION: Patient is lying in the bed comfortably, no acute distress, awake alert and oriented.. HEENT: Normocephalic. Neck is supple. Pupils reactive. Nostrils clear. Oral cavity is moist. Ears reveal no drainage. Neck reveals no JVD, carotid bruits, or thyromegaly. CHEST EXAMINATION: Trachea is central. Symmetrical expansion.bilateral prolonged expiration. Lung blake clear to auscultation and percussion. CARDIAC: Normal S1, S2 with no gallops. No murmurs ABDOMEN: Soft. Bowel sounds normal. No organomegaly. No abdominal bruits. Extremities: reveal no edema. No clubbing or cyanosis Neurologically awake, alert, oriented x3 with well-coordinated movements. No focal deficits noted Skin: No rash or skin lesions. Psychiatric: Coperative. Nonsuicidal Musculoskeletal: No joint swelling or deformity. Normal range of motion. - Labs CBC & Chem 7: 03/05/20 07:52 03/05/20 07:52 Labs: Abnormal Lab Results - Last 24 Hours (Table) 03/05/20 03/05/20 03/05/20 Range/Units 06:51 07:52 07:52 WBC 14.6 H (3.8-10.6) k/uL MCV 101.1 H (80.0-100.0) fL Neutrophils # 12.4 H (1.3-7.7) k/uL APTT 34.4 H (22.0-30.0) sec Sodium (137-145) mmol/L Carbon Dioxide (22-30) mmol/L BUN (9-20) mg/dL Glucose (74-99) mg/dL POC Glucose (mg/dL) 134 H (75-99) mg/dL 03/05/20 Range/Units 07:52 WBC (3.8-10.6) k/uL MCV (80.0-100.0) fL Neutrophils # (1.3-7.7) k/uL APTT (22.0-30.0) sec Sodium 135 L (137-145) mmol/L Carbon Dioxide 21 L (22-30) mmol/L BUN 23 H (9-20) mg/dL Glucose 136 H (74-99) mg/dL POC Glucose (mg/dL) (75-99) mg/dL Assessment and Plan Assessment: Chest pressure with exertional dyspnea likely due to Acute CHF With systolic d ysfunction.. Severe MR Nonischemic dilated cardiomyopathy with EF 20% Abnormal EKG with T wave inversions in the lateral leads. Generalized weakness and fatigue Elevated BNP level with interstitial edema on the chest x-ray. Ongoing nicotine addiction Hypertension Osteoarthritis History of colonoscopy with bowel perforation-laparotomy with bowel resection- colostomy eventually reversal. Anxiety History of marijuana use DVT prophylaxis Plan: Patient will be continued on telemetry monitoring. Serial EKG and troponin x3. Continue with aspirin a TSH and CRP levels within normal limits.. 2D echocardiogramShowed reduced ejection fraction and severe mitral regurgitation. Patient is status post cardiac catheterization showed normal coronary arteries. CT surgery was consulted. Planning for ALLYSSA tomorrow. Smoking cessation has been counseled extensively. Prognosis is guarded. Time with Patient: Greater than 30
[2020-03-06 04:52] LABS: Hepatitis A Antibody IgM Non-Reactive (Non-Reactive); Hepatitis B Core IgM Non-Reactive (Non-Reactive); Hepatitis B Surface Antigen Non-Reactive (Non-Reactive); Hepatitis C IgG Antibody Non-Reactive (Non-Reactive)
[2020-03-06 08:46] LABS: Appearance,Urine Clear (Clear); Bilirubin,Urine Negative (Negative); Blood,Urine Negative (Negative); Color,Urine Yellow; Glucose,Urine (UA) Negative (Negative); Ketones,Urine Negative (Negative); Leukocyte Esterase,Urine Negative (Negative); Nitrite,Urine Negative (Negative); PH, Urine 5.5 (5.0-8.0); Protein,Urine Negative (Negative); Specific Gravity,Urine 1.029 (1.001-1.035); Urobilinogen,Urine <2.0 mg/dL (<2.0)
[2020-03-06] MEDS ORDERED: fentaNYL (PF) 50 MCG/ML 2 ML AMP ONE (09:50)
[2020-03-06] MEDS: BENZOCAINE SPRAY 1 CAN TOPICAL ONE ×2 (10:02→10:18)
[2020-03-06] MEDS ORDERED: IV FLUID CONTINUATION 900 ML IV ONE (10:17)
[2020-03-06] MEDS ORDERED: MIDAZOLAM 2 MG/2 ML VIAL IV ONE (10:26)
[2020-03-06] MEDS ORDERED: fentaNYL (PF) 50 MCG/ML 2 ML AMP IV ONE (10:26)
--- NOTE | 2020-03-06 11:16 | ECHOT ---
TRANSESOPHAGEAL ECHOCARDIOGRAM INDICATION: Mitral regurgitation. PROCEDURE NOTE: After obtaining informed consent, transesophageal echocardiogram is performed in left lateral position using an Omni plane probe. Local and IV sedation were obtained using Xylocaine spray, 2 mg of Versed and 25 mcg of fentanyl. Patient tolerated the procedure well without any obvious immediate complications. FINDINGS: 1. MITRAL VALVE: Mitral valve appears anatomically normal. There is severe central mitral regurgitation secondary to mitral annular dilatation. There is no evidence of flailed mitral leaflet or prolapse. 2. Left atrium appears enlarged. Right atrium and right ventricle appear mildly enlarged. Left ventricle is dilated, shows diffuse global hypokinesis with severe LV systolic dysfunction with an ejection fraction of 20%. Aortic valve is a 3- leaflet valve. There is no evidence of aortic stenosis or regurgitation. Tricuspid valve shows severe tricuspid regurgitation. 3. Interatrial septum, there is no evidence of [id number] shunt by color-flow Doppler or [id number] shunt by agitated saline contrast study. 4. Aorta shows mild atherosclerotic changes. CONCLUSION: 1. Severe central mitral regurgitation secondary to dilated mitral anulus. 2. Severe LV systolic dysfunction. 3. Severe tricuspid regurgitation. MMODL / IJN: [id number] /
[2020-03-06] MEDS ORDERED: FUROSEMIDE 10 MG/ML 2 ML VIAL IV ONE (11:43)
[2020-03-06] MEDS: ATORVASTATIN 40 MG TAB PO SCH (12:04)
[2020-03-06] MEDS: FUROSEMIDE 40 MG TAB PO SCH (12:04)
[2020-03-06] MEDS: LISINOPRIL 5 MG TAB PO SCH (12:05)
[2020-03-06] MEDS: NICOTINE 21MG/24HR PATCH TRANSDERM SCH (12:05)
[2020-03-06] MEDS: ASPIRIN 81 MG PO SCH (12:05)
[2020-03-06] MEDS: SPIRONOLACTONE 25 MG TAB PO SCH (12:07)
[2020-03-06] MEDS: SODIUM CHLORIDE 0.9% 1,000 ML IV SCH (12:08)
[2020-03-06] MEDS: METOPROLOL TARTRATE 25 MG TAB PO SCH ×3 (12:12→21:31)
--- NOTE | 2020-03-06 13:31 | P.PN ---
Subjective Echocardiogram reveals severe LV dysfunction. Lisinopril added to his daily regimen. Dr. Nelson will proceed with cardiac catheterization. HISTORY OF PRESENTING ILLNESS This is a pleasant 54-year-old male past medical history significant for chronic daily nicotine and marijuana dependence. 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 He has undergone an echocardiogram and cardiac catheterization revealing severe global LV dysfunction and normal coronary arteries with severe MR. He has been initiated on lopressor, lasix, lisinopril, aspirin and atorvastatin. Blood pressure 121/83 heart rate 87 afebrile and maintaining oxygen saturation on room air. He is complaining of low back pain after his procedure. Laboratory data reviewed, WBC 14.6, hemoglobin 15.5, platelets 240, sodium 135, potassium 4.9, creatinine 0.83 and magnesium 1.8. PHYSICAL EXAMINATION CONSTITUTIONAL: No apparent distress. HEENT: Head is normocephalic. Pupils are equal, round. Sclerae anicteric. Mucous membranes of the mouth are moist. No JVD. No carotid bruit. CHEST EXAMINATION: Lungs are clear to auscultation. No chest wall tenderness is noted on palpation or with deep breathing. HEART EXAMINATION: Regular rate and rhythm. S1, S2 heard. Systolic ejection murmur at the left sternal border, no gallops or rub. EXTREMITIES: 2+ peripheral pulses, no lower extremity edema and no calf tende rness. ASSESSMENT Unstable angina Non-sustained ventricular tachycardia Valvular heart disease Severe non-ischemic cardiomyopathy Acute systolic heart failure Dyslipidemia Chronic nicotine and marijuana dependence PLAN Consult Dr. Nichols for further evaluation of the mitral valve for possible repa ir. Proceed with ALLYSSA tomorrow. This has been explained to the patient in detail and he is agreeable with the plan. He will require LifeVest prior to discharge secondary to severe LV dysfunction and non-sustained ventricular tachycardia to prevent sudden cardiac . Nurse Practitioner note has been reviewed, I agree with a documented findings and plan of care. Patient was seen and examined. Objective - Vital Signs Vital signs: Vital Signs Temp 97.4 F L 03/06/20 11:39 Pulse 92 03/06/20 11:45 Resp 18 03/06/20 11:45 BP 126/92 03/06/20 11:45 Pulse Ox 98 03/06/20 11:45 Intake & Output 03/05/20 03/06/2003/06/20 18:59 06:59 18:59 Intake Total 730 560 Output Total 0 300 Balance 730 0 260 Weight 74.3 kg Intake: IV 250 560 .9 160 Oral 480 Output: Urine 0 300 Other: Voiding Method Toilet Toilet Urinal Urinal # Voids 1 1 - Labs CBC & Chem 7: 03/05/20 07:52 03/05/20 07:52 Labs: Abnormal Lab Results - Last 24 Hours (Table) 03/05/20 03/05/20 Range/Units 07:52 07:52 WBC 14.6 H (3.8-10.6) k/uL MCV 101.1 H (80.0-100.0) fL Neutrophils # 12.4 H (1.3-7.7) k/uL Sodium 135 L (137-145) mmol/L Carbon Dioxide 21 L (22-30) mmol/L BUN 23 H (9-20) mg/dL Glucose 136 H (74-99) mg/dL Microbiology - Last 24 Hours (Table) 03/05/20 17:12 Nasal Screen MRSA/MSSA - Preliminary Nasal Swab
--- NOTE | 2020-03-06 13:39 | PN ---
PROGRESS NOTE Mr. Amaya is a 54-year-old male who has a history of chronic tobacco use, who presented with symptoms of progressive dyspnea, was found to have severely impaired left ventricular systolic function and severe mitral regurgitation. He has been having chest discomfort as well, underwent a cardiac catheterization by Dr. Nelson and was found to have no evidence of obstructive disease with severely impaired systolic function and 4+ mitral regurgitation. His ALLYSSA today revealed an ejection fraction 20% with severe tricuspid and mitral regurgitation with dilated mitral anulus. He is feeling better overall. He continued to have symptoms of dyspnea and occasional chest discomfort. He denies any dizziness or palpitation. He had some episode of nonsustained ventricular tachycardia with no sustained symptoms. He continues to be on aspirin once a day, Lipitor 40 mg daily, Lasix 40 mg daily, lisinopril 5 mg daily, metoprolol tartrate 25 mg twice a day in addition to nicotine patch. PHYSICAL EXAMINATION: Blood pressure 112/60 with a heart rate in the 80s. LUNGS: A few crackles at the bases. HEART: Regular rate and rhythm, S1, S2. No S3 with a holosystolic murmur in the apex radiating to the axilla. No diastolic murmur. ABDOMEN: Soft, nontender. EXTREMITIES: No edema, right groin, no hematoma. LAB DATA: Revealed BUN and creatinine 23 and 0.83, potassium 4.9. IMPRESSION: 1. Severe nonischemic cardiomyopathy with severe mitral regurgitation of unknown duration or etiology. 2. Severe tricuspid regurgitation. 3. Prior history of smoking. RECOMMENDATION: I will add to his regimen Aldactone 25 mg daily, increase the dose of his beta annalisa. He will get an extra dose of diuretics today and depending on his progress further recommendation made. If he remains stable, he may be able to be discharged home in the next 24 to 48 hours to follow up with Dr. Nelson and undergo repeat echocardiogram at that time to see if there is any improvement. Otherwise, he will be a candidate for mitral and tricuspid valve repair. MMODL / IJN: [id number] /
[2020-03-06] MEDS: ALPRAZolam 0.5 MG TAB PO PRN ×2 (16:36→23:02)
[2020-03-06] MEDS: NITROGLYCERIN SL TABS 0.4 MG TAB SUBLINGUAL PRN (16:36)
[2020-03-06] MEDS: HYDROcodone/APAP 7.5-325MG 1 EACH TAB PO PRN (21:32)
[2020-03-07 08:41] LABS: Potassium 4.5 mmol/L (3.5-5.1)
[2020-03-07] MEDS: FUROSEMIDE 40 MG TAB PO SCH (08:53)
[2020-03-07] MEDS: ATORVASTATIN 40 MG TAB PO SCH (08:53)
[2020-03-07] MEDS: NICOTINE 21MG/24HR PATCH TRANSDERM SCH (08:53)
[2020-03-07] MEDS: METOPROLOL TARTRATE 25 MG TAB PO SCH (08:53)
[2020-03-07] MEDS: ASPIRIN 81 MG PO SCH (08:53)
[2020-03-07] MEDS: LISINOPRIL 5 MG TAB PO SCH (08:53)
[2020-03-07] MEDS: SPIRONOLACTONE 25 MG TAB PO SCH (08:53)
--- NOTE | 2020-03-07 10:51 | PN ---
PROGRESS NOTE Mr. Amaya is a 54-year-old male with prior history of smoking, who presented with symptoms of chest discomfort, progressive dyspnea, was diagnosed with severe nonischemic cardiomyopathy with severe mitral and tricuspid regurgitation. He is feeling better overall. He has some chest discomfort, but not exertion more positional. His breathing is better. He denies any dizziness palpitation he denies any nausea. He continues to be on metoprolol tartrate 25 mg 3 times a day, Lipitor 40 mg daily, aspirin once a day, furosemide 40 mg daily, Zestril 5 mg daily, nicotine patch, and spironolactone 25 mg daily. PHYSICAL EXAMINATION: Blood pressure 120/70 with a heart rate in the 70s. LUNGS: Clear. HEART: Regular rate and rhythm, S1, S2. No S3 with a holosystolic murmur in the apex radiating to the axilla. No diastolic murmur. ABDOMEN: Soft, nontender. EXTREMITIES: No edema. LAB DATA: Revealed BUN and creatinine 28 and 1.09, potassium 4.5. IMPRESSION: 1. Severe nonischemic cardiomyopathy with severe mitral and tricuspid regurgitation. 2. Prior history of smoking. RECOMMENDATION: I will change the metoprolol to 50 mg twice a day, increase his level of activity. If he is stable, he may be able to be discharged home today or tomorrow. Follow up with Dr. Nelson. Followup his left ventricular systolic function. If there is no improvement, then he will be a candidate for mitral and tricuspid valve repair. The importance of smoking cessation were discussed with him. MMODL / IJN: [id number] /
--- NOTE | 2020-03-07 10:58 | P.PN ---
Subjective Progress Note Date: 03/07/20 Principal diagnosis: Severe mitral regurgitation, severe tricuspid regurgitation, severe LV systolic dysfunction with ejection fraction 20%. Previous medical history of hypertensi on, degenerative joint disease, broken back, current daily tobacco dependence, COPD with FEV1 65% of predicted, current daily marijuana use The patient is currently sitting up in bed in no acute distress. Does state his chest pain is better controlled, shortness of breath is stable. Findings of transesophageal echocardiogram discussed with the patient as well as plan for maximizing medical therapy. All questions answered. Patient anxious to go home. Objective - Vital Signs Vital signs: Vital Signs Temp 97.6 F 03/07/20 08:00 Pulse 79 03/07/20 08:00 Resp 20 03/07/20 08:00 BP 120/75 03/07/20 08:00 Pulse Ox 99 03/07/20 08:00 Intake & Output 03/06/20 03/07/20 03/07/20 18:59 06:59 18:59 Intake Total 720 118 Output Total 300 800 Balance 420 -800 118 Weight 73.8 kg Intake: IV 720 .9 320 Oral 118 Output: Urine 300 800 Other: Voiding Method Toilet Urinal - Constitutional General appearance: Present: cooperative, no acute distress - Respiratory Details: Lungs sounds diminished bilaterally. Respirations even, nonlabored. Currently on room air with oxygen saturation 99%. Able to achieve 3000 mL on his incentive spirometry - Cardiovascular Details: S1, S2 present. Positive systolic murmur. Regular rate and rhythm, sinus rhythm on telemetry. Palpable peripheral pulses bilaterally. No edema present. No calf pain or tenderness noted. - Gastrointestinal Gastrointestinal Comment(s): Abdomen soft, nontender, nondistended. Active bowel sounds present 4 quadrants. Tolerating diet. - Genitourinary Genitourinary Comment(s): Continues to void - Integumentary Integumentary Comment(s): Skin is warm and dry with evidence of good perfusion - Neurologic Neurologic: Present: CNII-XII intact - Musculoskeletal Musculoskeletal: Present: gait normal, strength equal bilaterally - Psychiatric Psychiatric: Present: A&O x's 3, appropriate affect, intact judgment & insight - Allied health notes Allied health notes reviewed: nursing - Labs CBC & Chem 7: 03/05/20 07:52 03/07/20 07:29 Labs: Abnormal Lab Results - Last 24 Hours (Table) 03/07/20 Range/Units 07:29 Sodium 135 L (137-145) mmol/L BUN 28 H (9-20) mg/dL Microbiology - Last 24 Hours (Table) 03/05/20 17:12 Nasal Screen MRSA/MSSA - Final Nasal Swab Assessment and Plan Assessment: 1. Severe mitral regurgitation, severe tricuspid regurgitation, severe LV systolic dysfunction with ejection fraction 20% 2. History of hypertension 3. History of degenerative joint disease, broken back 4. Current daily tobacco dependence 5. COPD with FEV1 65% of predicted 6. Current daily marijuana use Plan: The patient was seen and examined with Dr. Nichols. Transesophageal echocardiogram was reviewed with Dr. Nichols, the patient has severe functional mitral regurgitation. Our recommendation is for optimal goal directed medical therapy and clinical reassessment by echocardiogram to see if he would be a candidate for mitral valve +/- tricuspid valve surgery for pure functional improvement purposes. This was discussed with Dr. Nelson by Dr. Nichols as well as with the patient. Patient was again strongly encouraged to quit smoking and to see a dentist in the meantime. He was recommended to stay compliant with medical therapy and follow-up visits with cardiology. Continue medical management of other comorbidities per primary care service. We will see this gentleman again on an as-needed basis. Please call us with any further questions. Time with Patient: Greater than 30
[2020-03-07] MEDS: SODIUM CHLORIDE 0.9% 1,000 ML IV SCH (12:44)
[2020-03-07 14:44] VITALS: BP 101/63; PULSE 87; RESP 20; TEMP 98
[2020-03-07] MEDS ORDERED: predniSONE 20 MG TAB PO SCH (14:45)
[2020-03-07 16:25] VITALS: BMI 23.3
[2020-03-07] MEDS ORDERED: METOPROLOL TARTRATE 50 MG TAB PO SCH (21:00)
--- NOTE | 2020-03-12 12:28 | P.ARTDOP ---
Arterial Doppler LOWER EXTREMITY ARTERIAL DOPPLER: DATE OF SERVICE: 03/06/2020 Reason for study: Preop CABG. Doppler waveforms: Multiphasic bilaterally throughout. Pulse volume recording: []. Pressure gradients: None. Ankle-brachial indices: Greater than 1 bilaterally. Toe brachial indices: 0.81 on the right, 0.80 on the left Impression: Normal study.
--- NOTE | 2020-03-12 12:30 | P.VSCSTY ---
Greater Saphenous Vein Mapping This is bilateral lower extremity greater saphenous vein mapping. Date of service: 03/05/2020 Vein quality and ultrasound appearance: We see no endoluminal thrombus or wall changes.. Vein size groin right : 3.8 x 4.1 groin left: 5.2 x 5.4 High thigh right: 2.4 x 2.8 high thigh left: 3.8 x 4.3 Mid thigh right: 3.0 x 3.3 mid thigh left: 2.9 x 3.4 Above-knee right: 3.2 x 3.2 above- knee left: 3.4 x 3.1 Below knee right: 2.7 x 2.6 below-knee left: 2.8 x 3.6 Mid calf right: 2.4 x 2.6 mid calf left: 2.8 x 2.3 Ankle right: 2.5 x 4.5 ankle left: 2.7 x 4.1 Impression: Usable bilateral greater saphenous vein.
== END 2020-03-07 16:55 | disposition home or self-care (01) | DRG 286 ==
LOC: EC 15:56 → 1SOBS 18:27 → OBSVTOIN 03-04 11:35 → 3SCARD 03-05 16:37
PROVIDERS: ADMIT Internal Medicine; ATTEND Internal Medicine
PROC: B2151ZZ Fluoroscopy of Left Heart using Low Osmolar Contrast (ICD-10-PCS; principal; 2020-03-05 09:30)
PROC: 4A023N7 Measurement of Cardiac Sampling and Pressure, Left Heart, Percutaneous Approach (ICD-10-PCS; principal; 2020-03-05 09:30)
PROC: B2111ZZ Fluoroscopy of Multiple Coronary Arteries using Low Osmolar Contrast (ICD-10-PCS; principal; 2020-03-05 09:30)
DX: I08.1 Rheumatic disorders of both mitral and tricuspid valves (principal); I50.21 Acute systolic (congestive) heart failure; I42.0 Dilated cardiomyopathy; I47.2 Ventricular tachycardia; I11.0 Hypertensive heart disease with heart failure; I20.0 Unstable angina; F41.9 Anxiety disorder, unspecified; F12.20 Cannabis dependence, uncomplicated; R53.81 Other malaise; F17.200 Nicotine dependence, unspecified, uncomplicated; M19.90 Unspecified osteoarthritis, unspecified site; I27.20 Pulmonary hypertension, unspecified; J44.9 Chronic obstructive pulmonary disease, unspecified; E78.5 Hyperlipidemia, unspecified; Z11.59 Encounter for screening for other viral diseases; Z91.041 Radiographic dye allergy status; Z91.013 Allergy to seafood; Z98.890 Other specified postprocedural states; Z79.899 Other long term (current) drug therapy; Z80.8 Family history of malignant neoplasm of other organs or systems; Z87.442 Personal history of urinary calculi; Z93.3 Colostomy status; Z81.8 Family history of other mental and behavioral disorders; Z82.49 Family history of ischemic heart disease and other diseases of the circulatory system
CPT/HCPCS: 36415; 71045; 80048; 80053; 80061; 80074; 81003; 83036; 83735; 83880; 84443; 84484; 85025; 85379; 85610; 85730; 86140; 87070; 93005; 93306; 93312; 93320; 93325; 93458; 93880; 93922; 93970; 94150; 99285

== ENCOUNTER 2020-03-20 20:23 | Emergency (ER) | payer OTHER ==
--- NOTE | 2020-03-20 20:33 | ED ---
Chest Pain HPI - General Stated Complaint: chest pain Time Seen by Provider: 03/20/20 20:23 Source: patient, EMS, RN notes reviewed, old records reviewed Mode of arrival: EMS - History of Present Illness Initial Comments: This is a 54-year-old male with a history of COPD angina history of 2 valve problems with his heart who was driving prior to arrival when he started developing midsternal chest pain stabbing radiates to his back he took about 3 nitroglycerin but prior to this he did have some lightheadedness and dizziness which is really was exacerbated after the nitro. He is initially found to have a blood pressure of 60/40 he was given a liter of fluids to stay correct to about 98/56. He states he is feeling much improved at this time. He has had the radiating chest pain in the past. He is scheduled to have at some point the valves replaced. Placed other modifying factors at this time MD Complaint: chest pain - Related Data Home Medications Medication Instructions Recorded Confirmed predniSONE See Taper PO DAILY 03/20/20 03/20/20 Previous Rx's Medication Instructions Recorded Albuterol Inhaler [Ventolin Hfa 2 puff INHALATION RT-QID PRN #1 03/07/20 Inhaler] inhaler Aspirin 81 mg PO DAILY #30 chew 03/07/20 Atorvastatin [Lipitor] 40 mg PO DAILY #30 tab 03/07/20 Furosemide [Lasix] 40 mg PO DAILY #30 tab 03/07/20 HYDROcodone/APAP 5-325MG [[place] 1 tab PO Q6HR PRN 3 Days #12 tab 03/07/20 5-325] Lisinopril [Zestril] 5 mg PO DAILY #30 tab 03/07/20 Metoprolol Tartrate [Lopressor] 50 mg PO BID #60 tab 03/07/20 Nicotine 21Mg/24Hr Patch [Habitrol] 1 patch TRANSDERM DAILY #7 patch 03/07/20 Nitroglycerin Sl Tabs [Nitrostat] 0.4 mg SUBLINGUAL Q5M PRN #30 tab 03/07/20 Spironolactone [Aldactone] 25 mg PO DAILY #30 tab 03/07/20 Allergies Allergy/AdvReac Type Severity Reaction Status Date / Time Iodinated Contrast Media AdvReac Nausea & Verified 03/20/20 21:50 Vomiting shellfish derived [Shellfish] AdvReac Nausea & Verified 03/20/20 21:50 Vomiting Review of Systems ROS Statement: Those systems with pertinent positive or pertinent negative responses have been documented in the HPI. ROS Other: All systems not noted in ROS Statement are negative. EKG Findings - EKG Results: EKG: interpreted by YOLY, sinus rhythm (Sinus rhythm rate of 80 NE interval 134 QRS duration 88 QT since QTC 390/449 nonspecific T-wave configuration no acute ST-T wave changes. Some artifact present.) Past Medical History Past Medical History: Asthma, Chest Pain / Angina, COPD, Hypertension, Osteoarthritis (OA) Additional Past Medical History / Comment(s): Pt states he recently has been treated for upper respiratory infection, kidney stones, chronic mid and low back pain, prostate problems-pt states damaged during laparotomy surgery, migraines, bronchial asthma. History of Any Multi-Drug Resistant Organisms: None Reported Additional Past Surgical History / Comment(s): colonscopy with bowel perforation-laparotomy with bowel resection and colostomy/appendectomy-colostomy eventually reversed. Past Anesthesia/Blood Transfusion Reactions: No Reported Reaction Past Psychological History: Anxiety Smoking Status: Current every day smoker Past Alcohol Use History: None Reported Past Drug Use History: Marijuana Additional Drug Use History / Comment(s): Smokes 1 pack per day 40 years, daily marijuana use - Past Family History Father Additional Family Medical History / Comment(s): Father had pacemaker. Mother Family Medical History: Dementia Additional Family Medical History / Comment(s): Thyroid cancer General Exam - General Exam Comments Initial Comments: This is a well-developed sec appearing male who is awake alert oriented 3 General appearance: alert, anxious Head exam: Present: atraumatic, normocephalic, normal inspection Eye exam: Present: normal appearance, PERRL, EOMI. Absent: scleral icterus, conjunctival injection, periorbital swelling ENT exam: Present: normal exam, mucous membranes moist Neck exam: Present: normal inspection, full ROM, other (No stridor JVD or bruits). Absent: tenderness, meningismus, lymphadenopathy Respiratory exam: Present: normal lung sounds bilaterally, chest wall tenderness (Some tenderness palpation of the anterior chest wall costal sternal margin no step-off or crepitation.). Absent: respiratory distress, wheezes, rales, rhonchi, stridor Cardiovascular Exam: Present: regular rate, normal rhythm, normal heart sounds. Absent: systolic murmur, diastolic murmur, rubs, gallop, clicks GI/Abdominal exam: Present: soft, normal bowel sounds. Absent: distended, tenderness, guarding, rebound, rigid Extremities exam: Present: normal inspection, full ROM, normal capillary refill. Absent: tenderness, pedal edema, joint swelling, calf tenderness Back exam: Present: normal inspection Neurological exam: Present: alert, oriented X3, CN II-XII intact Psychiatric exam: Present: normal affect, normal mood Skin exam: Present: warm, dry, intact, normal color. 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 Patient is on diuretics. He is in the process of getting worked up for valve surgery. I did recommend the patient follow up with Dr. Morris as well as his surgeon. He has had a cardiac cath recently which apparently was unremarkable. Patient will be discharged home and follow-up as planned. Disposition Clinical Impression: Atypical chest pain, Valvular heart disease Disposition: HOME SELF-CARE Condition: Good Instructions (If sedation given, give patient instructions): Chest Pain (ED) Is patient prescribed a controlled substance at d/c from ED?: No Referrals: None,Stated [Primary Care Provider] - 1-2 days Sergio Nelson MD [STAFF PHYSICIAN] - 1-2 days
[2020-03-20 20:46] LABS: Basophils % (A) 0 %; Eosinophils # (A) 0.2 k/uL (0-0.7); Eosinophils % (A) 2 %; HCT 43.6 % (39.0-53.0); HGB 14.1 gm/dL (13.0-17.5); Lymphocytes # (A) 1.7 k/uL (1.0-4.8); Lymphocytes % (A) 21 %; MCH 31.7 pg (25.0-35.0); MCHC 32.3 g/dL (31.0-37.0); MCV 98.1 fL (80.0-100.0); Mean Platelet Volume 7.6; Monocytes # (A) 0.5 k/uL (0-1.0); Monocytes % (A) 6 %; Neutrophils # (A) 5.8 k/uL (1.3-7.7); Neutrophils % (A) 70 %; Platelet Count 256 k/uL (150-450); RBC 4.44 m/uL (4.30-5.90); RDW 13.1 % (11.5-15.5); WBC 8.3 k/uL (3.8-10.6)
[2020-03-20 20:53] LABS: Albumin 3.4 g/dL (3.5-5.0); Magnesium 1.9 mg/dL (1.6-2.3); Potassium 4.3 mmol/L (3.5-5.1); Total Bilirubin 0.6 mg/dL (0.2-1.3); Total Protein 6.1 g/dL (6.3-8.2)
--- NOTE | 2020-03-20 20:54 | XR ---
EXAMINATION TYPE: XR chest 2V DATE OF EXAM: 03/20/2020 COMPARISON: NONE HISTORY: Shortness of breath TECHNIQUE: Frontal and lateral views of the chest are obtained. FINDINGS: Scattered senescent parenchymal changes noted. Hyperinflation compatible with COPD. No evidence for infiltrate. No evidence for atelectasis. Heart size is stable. Mediastinal structures are stable and grossly unremarkable. No evidence for hilar prominence. Degenerative changes dorsal spine. IMPRESSION: 1. No evidence for acute pulmonary disease.
[2020-03-20 20:56] LABS: D-Dimer 0.31 mg/L FEU (<0.60); INR 0.9 (<1.2); Partial Thromboplastin Time 23.8 sec (22.0-30.0); Prothrombin Time 9.9 sec (9.0-12.0)
[2020-03-20 21:48] VITALS: RESP 18
[2020-03-20 22:36] VITALS: BP 110/54; PULSE 79; TEMP 97.7
== END 2020-03-20 22:36 | disposition home or self-care (01) ==
LOC: EC 20:23
DX: I05.9 Rheumatic mitral valve disease, unspecified (principal); J44.9 Chronic obstructive pulmonary disease, unspecified; F17.200 Nicotine dependence, unspecified, uncomplicated; Z79.51 Long term (current) use of inhaled steroids; Z91.041 Radiographic dye allergy status; Z91.013 Allergy to seafood
CPT/HCPCS: 36415; 71046; 80053; 82550; 83690; 83735; 83880; 84484; 85025; 85379; 85610; 85730; 93005; 99285

== ENCOUNTER 2020-12-23 17:09 | Observation (INO) | payer OTHER ==
--- NOTE | 2020-12-23 17:42 | ED ---
General Adult HPI - General Chief complaint: Chest Pain Stated complaint: chest pain Time Seen by Provider: 12/23/20 17:32 Source: patient Mode of arrival: wheelchair Limitations: no limitations - History of Present Illness Initial comments: Patient presents to the ED complaining of having chest pain for the past year or so, which has become worse over the past couple of weeks. Patient states that his chest pain has been constant in his central chest, but worsens with exertion/activity. Patient states that his chest pain has become especially worse today. Patient also states that he has had exertional dyspnea for the past couple of weeks. Patient denies trauma or injury, fever or chills, headache, focal numbness/weakness/neuro deficit, neck/arm/jaw/back pain, pleuritic pain, cough or cold symptoms, palpitations, dizziness, nausea/vomiting/diaphoresis, abdominal pain, diarrhea or constipation, bloody or melanotic stool, dysuria or urinary symptoms, decreased or urinary output, leg or calf swelling or pain, or any other symptoms or complaints. - Related Data Home Medications Medication Instructions Recorded Confirmed predniSONE See Taper PO DAILY 03/20/20 03/20/20 Previous Rx's Medication Instructions Recorded Albuterol Inhaler [Ventolin Hfa 2 puff INHALATION RT-QID PRN #1 03/07/20 Inhaler] inhaler Aspirin 81 mg PO DAILY #30 chew 03/07/20 Atorvastatin [Lipitor] 40 mg PO DAILY #30 tab 03/07/20 Furosemide [Lasix] 40 mg PO DAILY #30 tab 03/07/20 HYDROcodone/APAP 5-325MG [[place] 1 tab PO Q6HR PRN 3 Days #12 tab 03/07/20 5-325] Metoprolol Tartrate [Lopressor] 50 mg PO BID #60 tab 03/07/20 Nicotine 21Mg/24Hr Patch [Habitrol] 1 patch TRANSDERM DAILY #7 patch 03/07/20 Nitroglycerin Sl Tabs [Nitrostat] 0.4 mg SUBLINGUAL Q5M PRN #30 tab 03/07/20 Spironolactone [Aldactone] 25 mg PO DAILY #30 tab 03/07/20 lisinopriL [Zestril] 5 mg PO DAILY #30 tab 03/07/20 Allergies Allergy/AdvReac Type Severity Reaction Status Date / Time Iodinated Contrast Media AdvReac Nausea & Verified 12/23/20 17:36 Vomiting shellfish derived [Shellfish] AdvReac Nausea & Verified 12/23/20 17:36 Vomiting Review of Systems ROS Statement: Those systems with pertinent positive or pertinent negative responses have been documented in the HPI. ROS Other: All systems not noted in ROS Statement are negative. Past Medical History Past Medical History: Asthma, Chest Pain / Angina, COPD, Hypertension, Myocardi al Infarction ([place]), Osteoarthritis (OA) Additional Past Medical History / Comment(s): Pt states he recently has been treated for upper respiratory infection, kidney stones, chronic mid and low back pain, prostate problems-pt states damaged during laparotomy surgery, migraines, bronchial asthma. History of Any Multi-Drug Resistant Organisms: None Reported Past Surgical History: Appendectomy, Bowel Resection, Tonsillectomy Additional Past Surgical History / Comment(s): colonscopy with bowel perfor ation-laparotomy with bowel resection and colostomy/appendectomy-colostomy eventually reversed. Past Anesthesia/Blood Transfusion Reactions: No Reported Reaction Past Psychological History: Anxiety Smoking Status: Former smoker Past Alcohol Use History: None Reported Past Drug Use History: Marijuana - Past Family History Father Additional Family Medical History / Comment(s): Father had pacemaker. Mother Family Medical History: Dementia Additional Family Medical History / Comment(s): Thyroid cancer General Exam Limitations: no limitations General appearance: alert, in no apparent distress Head exam: Present: atraumatic, normocephalic Eye exam: Present: normal appearance, EOMI ENT exam: Present: mucous membranes moist Neck exam: Present: other (Trachea is in midline) Respiratory exam: Present: normal lung sounds bilaterally. Absent: respiratory distress, wheezes, rales, rhonchi, stridor, chest wall tenderness Cardiovascular Exam: Present: regular rate, normal rhythm, normal heart sounds, other (Normal radial pulses bilaterally) GI/Abdominal exam: Present: soft. Absent: distended, tenderness, guarding Extremities exam: Present: other (Negative Homans sign bilaterally). Absent: te nderness, pedal edema, calf tenderness Neurological exam: Present: alert, oriented X3. Absent: motor sensory deficit Psychiatric exam: Present: normal affect, normal mood Skin exam: Present: warm, dry, intact, normal color Course Vital Signs 12/23/20 12/23/20 17:33 17:59 Temperature 97.6 F Pulse Rate 99 104 H Respiratory 20 20 Rate Blood Pressure 116/77 129/84 O2 Sat by Pulse 97 97 Oximetry - Reevaluation(s) Reevaluation #1: 12/23/20 19:04 Case, H&P, test results and ED management thus far were discussed with Dr. Lyon. She accepts hospital admission. She agrees with cardiology consultation. She has no further recommendations at this time. 12/23/20 19:09 Patient denies development of any new symptoms while in the ED. Patient states that his pain has improved with the nitroglycerin that he was given in the ED. Patient remains alert and breathing comfortably with a normal room air oxygen saturation. Patient is aware of his test results, and he agrees with hospital admission at this time. EKG Findings - EKG Comments: EKG Findings:: Normal sinus rhythm, ventricular rate of 97 bpm, normal [place] and QRS intervals, normal QT interval, rightward axis, LVH with repolarization abnormality, inferior lead T-wave inversions are new when compared to 03/20/2020 EKG Medical Decision Making - Medical Decision Making Patient's labs and chest x-ray are fairly unremarkable, including a negative troponin. Given the patient's risk factors and story, will admit the patient to the hospital for further evaluation of his chest pain, cardiac monitoring and cardiology consultation. Dr. Lyon has accepted hospital admission. - Lab Data Result diagrams: 12/23/20 17:59 12/23/20 17:59 Lab Results 12/23/20 12/23/20 12/23/20 Range/Units 17:59 17:59 17:59 WBC 11.1 H (3.8-10.6) k/uL RBC 4.49 (4.30-5.90) m/uL Hgb 15.4 (13.0-17.5) gm/dL Hct 45.1 (39.0-53.0) % MCV 100.4 H (80.0-100.0) fL MCH 34.2 (25.0-35.0) pg MCHC 34.1 (31.0-37.0) g/dL RDW 13.7 (11.5-15.5) % Plt Count 266 (150-450) k/uL MPV 7.6 Neutrophils % 73 % Lymphocytes % 16 % Monocytes % 6 % Eosinophils % 3 % Basophils % 1 % Neutrophils # 8.1 H (1.3-7.7) k/uL Lymphocytes # 1.8 (1.0-4.8) k/uL Monocytes # 0.7 (0-1.0) k/uL Eosinophils # 0.3 (0-0.7) k/uL Basophils # 0.1 (0-0.2) k/uL Macrocytosis Slight PT 11.1 (9.0-12.0) sec INR 1.0 (<1.2) APTT 23.6 (22.0-30.0) sec Sodium 133 L (137-145) mmol/L Potassium 4.7 (3.5-5.1) mmol/L Chloride 103 (98-107) mmol/L Carbon Dioxide 20 L (22-30) mmol/L Anion Gap 10 mmol/L BUN 26 H (9-20) mg/dL Creatinine 1.09 (0.66-1.25) mg/dL Est GFR (CKD-EPI)AfAm 87 (>60 ml/min/1.73 sqM) Est GFR (CKD-EPI)NonAf 76 (>60 ml/min/1.73 sqM) Glucose 136 H (74-99) mg/dL Calcium 9.5 (8.4-10.2) mg/dL Magnesium 1.9 (1.6-2.3) mg/dL Total Bilirubin 0.7 (0.2-1.3) mg/dL AST 58 (17-59) U/L ALT 66 H (4-49) U/L Alkaline Phosphatase 66 (38-126) U/L Troponin I (0.000-0.034) ng/mL NT-Pro-B Natriuret Pep pg/mL Total Protein 6.7 (6.3-8.2) g/dL Albumin 4.0 (3.5-5.0) g/dL Coronavirus (PCR) (Not Detectd) 12/23/20 12/23/20 12/23/20 Range/Units 17:59 17:59 18:04 WBC (3.8-10.6) k/uL RBC (4.30-5.90) m/uL Hgb (13.0-17.5) gm/dL Hct (39.0-53.0) % MCV (80.0-100.0) fL MCH (25.0-35.0) pg MCHC (31.0-37.0) g/dL RDW (11.5-15.5) % Plt Count (150-450) k/uL MPV Neutrophils % % Lymphocytes % % Monocytes % % Eosinophils % % Basophils % % Neutrophils # (1.3-7.7) k/uL Lymphocytes # (1.0-4.8) k/uL Monocytes # (0-1.0) k/uL Eosinophils # (0-0.7) k/uL Basophils # (0-0.2) k/uL Macrocytosis PT (9.0-12.0) sec INR (<1.2) APTT (22.0-30.0) sec Sodium (137-145) mmol/L Potassium (3.5-5.1) mmol/L Chloride (98-107) mmol/L Carbon Dioxide (22-30) mmol/L Anion Gap mmol/L BUN (9-20) mg/dL Creatinine (0.66-1.25) mg/dL Est GFR (CKD-EPI)AfAm (>60 ml/min/1.73 sqM) Est GFR (CKD-EPI)NonAf (>60 ml/min/1.73 sqM) Glucose (74-99) mg/dL Calcium (8.4-10.2) mg/dL Magnesium (1.6-2.3) mg/dL Total Bilirubin (0.2-1.3) mg/dL AST (17-59) U/L ALT (4-49) U/L Alkaline Phosphatase (38-126) U/L Troponin I 0.020 (0.000-0.034) ng/mL NT-Pro-B Natriuret Pep 4540 pg/mL Total Protein (6.3-8.2) g/dL Albumin (3.5-5.0) g/dL Coronavirus (PCR) Not Detected (Not Detectd) - Radiology Data Radiology results: report reviewed (Chest x-ray: Correlate for interstitial pneumonitis or mild venous congestion) Disposition Clinical Impression: Chest pain Disposition: ADMITTED IP TO THIS [facility] Condition: Stable Is patient prescribed a controlled substance at d/c from ED?: No Referrals: None,Stated [Primary Care Provider] - 1-2 days Time of Disposition: 19:05
[2020-12-23] MEDS ORDERED: ASPIRIN 81 MG PO STA (17:51)
[2020-12-23] MEDS ORDERED: NITROGLYCERIN SL TABS 0.4 MG TAB SUBLINGUAL STA (17:51)
[2020-12-23 18:07] LABS: Basophils # (A) 0.1 k/uL (0-0.2); Basophils % (A) 1 %; Eosinophils # (A) 0.3 k/uL (0-0.7); Eosinophils % (A) 3 %; HCT 45.1 % (39.0-53.0); HGB 15.4 gm/dL (13.0-17.5); Lymphocytes # (A) 1.8 k/uL (1.0-4.8); Lymphocytes % (A) 16 %; MCH 34.2 pg (25.0-35.0); MCHC 34.1 g/dL (31.0-37.0); MCV 100.4 fL (80.0-100.0); Macrocytosis Slight; Mean Platelet Volume 7.6; Monocytes # (A) 0.7 k/uL (0-1.0); Monocytes % (A) 6 %; Neutrophils # (A) 8.1 k/uL (1.3-7.7); Neutrophils % (A) 73 %; Platelet Count 266 k/uL (150-450); RBC 4.49 m/uL (4.30-5.90); RDW 13.7 % (11.5-15.5); WBC 11.1 k/uL (3.8-10.6)
[2020-12-23 18:14] LABS: Partial Thromboplastin Time 23.6 sec (22.0-30.0); Prothrombin Time 11.1 sec (9.0-12.0)
[2020-12-23 18:16] LABS: Potassium 4.7 mmol/L (3.5-5.1)
[2020-12-23 18:17] LABS: Calcium 9.5 mg/dL (8.4-10.2); Magnesium 1.9 mg/dL (1.6-2.3); Total Bilirubin 0.7 mg/dL (0.2-1.3); Total Protein 6.7 g/dL (6.3-8.2)
--- NOTE | 2020-12-23 19:33 | XR ---
EXAMINATION TYPE: XR chest 2V DATE OF EXAM: 12/23/2020 COMPARISON: [id number] TECHNIQUE: PA and lateral views submitted. HISTORY: Chest pain FINDINGS: The lungs are clear and there is no pneumothorax, pleural effusion, or focal pneumonia. Heart is enl arged and there is a coarsened interstitial pattern. Underlying COPD suspected. Hypertrophic and dege nerative change of the spine. IMPRESSION: 1. Correlate for interstitial pneumonitis or mild venous congestion.
[2020-12-23] MEDS: MORPHINE SULFATE 4 MG/ML SYRINGE IVP PRN (20:54)
[2020-12-23] MEDS: METOPROLOL TARTRATE 50 MG TAB PO SCH (22:05)
--- NOTE | 2020-12-24 00:47 | P.HPIM ---
History of Present Illness H&P Date: 12/23/20 Chief Complaint: progressive dyspnea , chest pain 55 year old male with severe mitral valve regurge, dilated CMP patient comes in complaining of vague chronic symptoms, his compliance with medications and follow up is questionable. patient claims since last hospitalization last year, he never felt better, he initially was doing ok , then rapidly started noticing progressive dyspnea and poor functional capacity. he is not clear why he did not follow up with his doctors recommendations to get evaluated for valve replacement , he was hoping that medications alone would help improve his symptoms, however, he admits to be forgetful when it comes to his meds. his main concern is progressive dyspnea , especially over past few weeks, where he is having SOB even at rest, denies orthopnea, but does suffer from PNDs and poor sleep due to that. he denies any leg swelling, syncope, but does report some vague chest or upper abd discomfort he described it as full stomach and stomach upset. he feels drained and tired all the time. he would like to have more energy and be able to go out and exercise. he recognizes that he has valvular heart disease, and doctors did recommend surgical repair in the past, but he did not follow through he is not on blood thinner, denies any recent travel , denies dizziness, sweating, syncope, GI bleed , changes in bowel or urinary habits. workup in the ED showed negative COVID test, proBNP elevated, trops negative, EKG showed new inferior lead T wave inversion new compared to prior EKG which showed lateral T wave inversion . heart cath from 02/2020 reviewed shoed normal coronary arteries , severe dialted CMP LVEF 20% patient is not on home O2 Review of Systems Pertinent positives as noted in HPI. All other systems were reviewed and are negative Past Medical History Past Medical History: Asthma, Chest Pain / Angina, COPD, Hypertension, Myocardi al Infarction (MA), Osteoarthritis (OA) Additional Past Medical History / Comment(s): Pt states he recently has been treated for upper respiratory infection, kidney stones, chronic mid and low back pain, prostate problems-pt states damaged during laparotomy surgery, migraines, bronchial asthma. Last Myocardial Infarction Date:: 2019 History of Any Multi-Drug Resistant Organisms: None Reported Past Surgical History: Appendectomy, Bowel Resection, Tonsillectomy Additional Past Surgical History / Comment(s): colonscopy with bowel perforation-laparotomy with bowel resection and colostomy/appendectomy-colostomy eventually reversed. Past Anesthesia/Blood Transfusion Reactions: No Reported Reaction Past Psychological History: Anxiety Smoking Status: Former smoker Past Alcohol Use History: None Reported Additional Past Alcohol Use History / Comment(s): Pt started smoking in 1973 and smokes 3 cigars a day. Past Drug Use History: Marijuana Additional Drug Use History / Comment(s): Smokes 1 pack per day 40 years, daily marijuana use - Past Family History Father Additional Family Medical History / Comment(s): Father had pacemaker. Mother Family Medical History: Dementia Additional Family Medical History / Comment(s): Thyroid cancer Medications and Allergies Home Medications Medication Instructions Recorded Confirmed Type Albuterol Inhaler [Ventolin Hfa 2 puff INHALATION RT-QID PRN #1 03/07/20 12/23/20 Rx Inhaler] inhaler Aspirin 81 mg PO DAILY #30 chew 03/07/20 12/23/20 Rx Atorvastatin [Lipitor] 40 mg PO DAILY #30 tab 03/07/20 12/23/20 Rx Furosemide [Lasix] 40 mg PO DAILY #30 tab 03/07/20 12/23/20 Rx Nitroglycerin Sl Tabs [Nitrostat] 0.4 mg SUBLINGUAL Q5M PRN #30 tab 03/07/20 12/23/20 Rx Spironolactone [Aldactone] 25 mg PO DAILY #30 tab 03/07/20 12/23/20 Rx lisinopriL [Zestril] 5 mg PO DAILY #30 tab 03/07/20 12/23/20 Rx Metoprolol Tartrate [Lopressor] 25 mg PO BID 12/23/20 12/23/20 History Allergies Allergy/AdvReac Type Severity Reaction Status Date / Time Iodinated Contrast Media AdvReac Nausea & Verified 12/23/20 20:10 Vomiting shellfish derived [Shellfish] AdvReac Nausea & Verified 12/23/20 20:10 Vomiting Physical Exam Vitals: Vital Signs Temp Pulse Pulse Resp BP BP Pulse Ox 12/23/20 23:08 98.0 F 87 18 115/73 92 L 12/23/20 21:24 100 18 116/83 96 12/23/20 21:01 94 20 116/83 99 12/23/20 19:46 100 20 121/87 100 12/23/20 17:59 104 H 20 129/84 97 12/23/20 17:33 97.6 F 99 20 116/77 97 Intake and Output 12/23/20 12/23/20 12/24/20 14:59 22:59 06:59 Other: Weight 79.379 kg Constitutional: No acute distress, conversant, pleasant Eyes: Anicteric sclerae, moist conjunctiva, Pupils equal round reactive to light ENMT: NC/AT Oropharynx clear, no erythema, or exudates Neck: Supple, FROM, no masses, or JVD No carotid bruits No thyromegaly Lungs: Clear to auscultation Clear to percussion Normal respiratory effort, no accessory muscle use Cardiovascular: Heart regular in rate and rhythm, Systolic murmurs, no gallops, or rubs No peripheral edema Abdominal: Soft Nontender, no guarding, rebound or rigidity Abdomen moving with respiration Normoactive bowel sounds No hepatomegaly, No splenomegaly No palpable mass No abdominal wall hernia noted Skin: Normal temperature, tone, texture, turgor No induration No subcutaneous nodules No rash, lesions No ulcers Extremities: No digital cyanosis No clubbing Pedal pulses intact and symmetrical Radial pulses intact and symmetrical No calf tenderness Psychiatric: Alert and oriented to person, place and time Appropriate affect fair judgement Neuro Muscles Strength 5/5 in all 4 extremities Sensation to light touch grossly present throughout Cranial nerves II-XII grossly intact No focal sensory deficits Lymphatics: no palpable cervical or supraclavicular , or inguinal lymph nodes Results CBC & Chem 7: 12/23/20 17:59 12/23/20 17:59 Labs: Abnormal Lab Results - Last 24 Hours (Table) 12/23/20 12/23/20 Range/Units 17:59 17:59 WBC 11.1 H (3.8-10.6) k/uL MCV 100.4 H (80.0-100.0) fL Neutrophils # 8.1 H (1.3-7.7) k/uL Sodium 133 L (137-145) mmol/L Carbon Dioxide 20 L (22-30) mmol/L BUN 26 H (9-20) mg/dL Glucose 136 H (74-99) mg/dL ALT 66 H (4-49) U/L Thrombosis Risk Factor Assmnt - Choose All That Apply Each Factor Represents 1 point: Abnormal pulmonary function (COPD), Acute MA, Age 41-60 years Other Risk Factors: No Other congenital or acquired thrombophilia - If yes, enter type in comment: No Thrombosis Risk Factor Assessment Total Risk Factor Score: 3 Thrombosis Risk Factor Assessment Level: Moderate Risk Assessment and Plan Assessment: Atypical chest pain Progressive dyspnea chronic systolic cardiomyopathy with left ventricular ejection fraction 20% currently compensated Medical noncompliance valvular heart disease Plan Left heart Cath done in February 2020 shows normal coronary arteries, severe mitral valve regurg, dilated cardiomyopathy, left ventricular ejection fraction 20% Follow-up cardiology recommendations Resume home medications 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
[2020-12-24] MEDS: ALBUTEROL HFA INHALER INHALATION PRN (07:30)
[2020-12-24] MEDS: FUROSEMIDE 40 MG TAB PO SCH (08:36)
[2020-12-24] MEDS: ATORVASTATIN 40 MG TAB PO SCH (08:36)
[2020-12-24] MEDS: ASPIRIN 81 MG PO SCH (08:36)
[2020-12-24] MEDS: lisinopriL 5 MG TAB PO SCH (08:36)
[2020-12-24] MEDS: SPIRONOLACTONE 25 MG TAB PO SCH (08:36)
[2020-12-24] MEDS: METOPROLOL TARTRATE 50 MG TAB PO SCH ×2 (08:36→21:04)
[2020-12-24] MEDS: MORPHINE SULFATE 4 MG/ML SYRINGE IVP PRN (08:42)
[2020-12-24 10:32] LABS: Basophils # (A) 0.09 X 10*3/uL (0.00-0.10); Basophils % (A) 0.8 %; Eosinophils # (A) 0.22 X 10*3/uL (0.04-0.35); Eosinophils % (A) 1.9 %; HCT 45.1 % (39.6-50.0); HGB 15.1 g/dL (13.0-17.0); Lymphocytes # (A) 2.17 X 10*3/uL (0.90-5.00); Lymphocytes % (A) 18.3 %; MCHC 33.5 g/dL (32.0-37.0); MCV 101.6 fL (80.0-97.0); Mean Platelet Volume 10.5 fL (9.5-12.2); Monocytes % (A) 8.4 %; Neutrophils # (A) 8.33 X 10*3/uL (1.80-7.70); Neutrophils % (A) 70.1 %; Platelet Count 276 X 10*3/uL (140-440); RBC 4.44 X 10*6/uL (4.40-5.60); RDW 14.2 % (11.5-14.5); WBC 11.87 X 10*3/uL (4.50-10.00)
--- NOTE | 2020-12-24 11:08 | P.CRDCN ---
History of Present Illness Consult date: 12/24/20 History of present illness: HISTORY OF PRESENT ILLNESS: This is a 55 year old male with a past medical history significant for severe mitral regurgitation, COPD, hypertension, and cardiomyopathy. Patient states he does not follow with a reservationist. We have been asked to see the patient in consultation for chest pain. Patient examined at the bedside this morning. Patient states he has been having some intermittent shortness of breath and ch est pain. At the time of examination this morning, the patient denies having any chest pain. Patient was hospitalized last year for chest pain. He underwent a cardiac catheterization by Dr. Nelson in February 2020 revealing normal coronary arteries. Severe dilated cardiomyopathy with an ejection fraction less than 20%. Patient also underwent ALLYSSA revealing severe mitral regurgitation and severe tricuspid regurgitation. Patient was evaluated by cardiothoracic surgery at that time and surgical intervention was recommended. The patient never underwent valve repair. He is unable to give a reason why but states "I just didn't but now I want it done". EKG reveals sinus mechanism with T-wave inversions in inferior and lateral leads Chest xray correlate for interstitial pneumonitis or mild venous congestion Laboratory data: WBC 11.87. Hemoglobin 15.1. Platelet count 276. Sodium 133. Potassium 4.7. BUN 26. Creatinine 1.09. Troponin negative 3. BNP 4540. Current home cardiac medications include aspirin 325 mg daily, Aldactone 25 mg daily, metoprolol tartrate 25 mg twice a day, lisinopril 5 mg daily, Lasix 40 mg daily, Lipitor 40 mg daily Most recent echocardiogram obtained in in February 2020 revealed ejection fraction 20-25%, severe mitral regurgitation, and moderate to severe tricuspid regurgitation. Moderate to severe pulmonary hypertension. Cardiac catheterization history: with Dr. Nelson in February 2020 revealing normal coronary arteries. Severe dilated cardiomyopathy with an ejection fraction less than 20%. REVIEW OF SYSTEMS: At the time of my exam: CONSTITUTIONAL: Denies fever or chills. HEENT: Denies blurred vision, vision changes, or eye pain. Denies hemoptysis CARDIOVASCULAR: Denies chest pain. Denies orthopnea. Denies PND. Denies palpitations RESPIRATORY: Denies shortness of breath. GASTROINTESTINAL: Denies abdominal pain. Denies nausea or vomiting. HEMATOLOGIC: Denies bleeding disorders. GENITOURINARY: Denies any blood in urine. SKIN: Denies pruitis. Denies rash. PHYSICAL EXAM: VITAL SIGNS: Reviewed. GENERAL: Well-developed in no acute distress. HEENT: Head is normocephalic. Pupils are equal, round. Sclerae anicteric. Mucous membranes of the mouth are moist. Neck supple. No JVD or thyromegaly LUNGS: Respirations even and unlabored. Lungs essentially clear to auscultation bilaterally. HEART: Regular rate and rhythm. S1 and S2 heard. Systolic murmur noted. ABDOMEN: Soft. Nondistended. Nontender. EXTREMITIES: Normal range of motion. No clubbing or cyanosis. Peripheral pulses intact. No lower extremity edema NEUROLOGIC: Awake and alert. Oriented x 3. ASSESSMENT: Chest pain, atypical, troponin negative x 3 Severe mitral regurgitation Severe tricuspid regurgitation Moderate to severe pulmonary hypertension Severe dilated cardiomyopathy with an ejection fraction of 20% COPD Anxiety Nicotine dependence Daily marijuana use PLAN: An acute coronary event has been rule out Continue home cardiac medications Consult cardiothoracic surgery regarding valvular heart disease Further recommendations pending patient course Nurse practitioner note has been reviewed by physician. Signing provider agrees with the documented findings, assessment, and plan of care. Past Medical History Past Medical History: Asthma, Chest Pain / Angina, COPD, Hypertension, Myocardial Infarction (ME), Osteoarthritis (OA) Additional Past Medical History / Comment(s): Pt states he recently has been treated for upper respiratory infection, kidney stones, chronic mid and low back pain, prostate problems-pt states damaged during laparotomy surgery, migraines, bronchial asthma. Last Myocardial Infarction Date:: 2019 History of Any Multi-Drug Resistant Organisms: None Reported Past Surgical History: Appendectomy, Bowel Resection, Tonsillectomy Additional Past Surgical History / Comment(s): colonscopy with bowel perforation-laparotomy with bowel resection and colostomy/appendectomy-colostomy eventually reversed. Past Anesthesia/Blood Transfusion Reactions: No Reported Reaction Past Psychological History: Anxiety Smoking Status: Former smoker Past Alcohol Use History: None Reported Additional Past Alcohol Use History / Comment(s): Pt started smoking in 1973 and smokes 3 cigars a day. Past Drug Use History: Marijuana Additional Drug Use History / Comment(s): Smokes 1 pack per day 40 years, daily marijuana use - Past Family History Father Additional Family Medical History / Comment(s): Father had pacemaker. Mother Family Medical History: Dementia Additional Family Medical History / Comment(s): Thyroid cancer Medications and Allergies Home Medications Medication Instructions Recorded Confirmed Type Albuterol Inhaler [Ventolin Hfa 2 puff INHALATION RT-QID PRN #1 03/07/20 12/23/20 Rx Inhaler] inhaler Atorvastatin [Lipitor] 40 mg PO DAILY #30 tab 03/07/20 12/23/20 Rx Furosemide [Lasix] 40 mg PO DAILY #30 tab 03/07/20 12/23/20 Rx Nitroglycerin Sl Tabs [Nitrostat] 0.4 mg SUBLINGUAL Q5M PRN #30 tab 03/07/20 12/23/20 Rx Spironolactone [Aldactone] 25 mg PO DAILY #30 tab 03/07/20 12/23/20 Rx lisinopriL [Zestril] 5 mg PO DAILY #30 tab 03/07/20 12/23/20 Rx Metoprolol Tartrate [Lopressor] 25 mg PO BID 12/23/20 12/23/20 History Aspirin EC [Ecotrin] 325 mg PO DAILY 12/24/20 12/24/20 History Allergies Allergy/AdvReac Type Severity Reaction Status Date / Time Iodinated Contrast Media AdvReac Nausea & Verified 12/23/20 20:10 Vomiting shellfish derived [Shellfish] AdvReac Nausea & Verified 12/23/20 20:10 Vomiting Physical Exam Vitals: Vital Signs Temp Pulse Pulse Resp BP BP BP 12/24/20 06:49 97.6 F 88 18 125/82 12/24/20 02:10 18 12/24/20 02:00 97.6 F 82 16 111/76 12/23/20 23:08 98.0 F 87 18 115/73 12/23/20 21:24 100 18 116/83 12/23/20 21:01 94 20 116/83 12/23/20 19:46 100 20 121/87 12/23/20 17:59 104 H 20 129/84 12/23/20 17:33 97.6 F 99 20 116/77 Pulse Ox 12/24/20 06:49 95 12/24/20 02:10 12/24/20 02:00 12/23/20 23:08 92 L 12/23/20 21:24 96 12/23/20 21:01 99 12/23/20 19:46 100 04/06/21 17:59 97 12/23/20 17:33 97 Intake and Output 12/23/20 12/24/20 12/24/20 22:59 06:59 14:59 Other: Voiding Method Toilet Toilet # Voids 2 Weight 79.379 kg Results 12/24/20 07:02 12/23/20 17:59 Cardiac Enzymes 12/23/20 12/23/20 12/23/20 Range/Units 17:59 17:59 22:04 AST 58 (17-59) U/L Troponin I 0.020 0.026 (0.000-0.034) ng/mL 12/24/20 Range/Units 00:10 AST (17-59) U/L Troponin I 0.018 (0.000-0.034) ng/mL Coagulation 12/23/20 Range/Units 17:59 PT 11.1 (9.0-12.0) sec APTT 23.6 (22.0-30.0) sec CBC 12/23/20 12/24/20 Range/Units 17:59 07:02 WBC 11.1 H 11.87 H (3.8-10.6) k/uL RBC 4.49 4.44 (4.30-5.90) m/uL Hgb 15.4 15.1 (13.0-17.5) gm/dL Hct 45.1 45.1 (39.0-53.0) % Plt Count 266 276 (150-450) k/uL Comprehensive Metabolic Panel 12/23/20 Range/Units 17:59 Sodium 133 L (137-145) mmol/L Potassium 4.7 (3.5-5.1) mmol/L Chloride 103 (98-107) mmol/L Carbon Dioxide 20 L (22-30) mmol/L BUN 26 H (9-20) mg/dL Creatinine 1.09 (0.66-1.25) mg/dL Glucose 136 H (74-99) mg/dL Calcium 9.5 (8.4-10.2) mg/dL AST 58 (17-59) U/L ALT 66 H (4-49) U/L Alkaline Phosphatase 66 (38-126) U/L Total Protein 6.7 (6.3-8.2) g/dL Albumin 4.0 (3.5-5.0) g/dL Current Medications Generic Name Dose Route Start Last Admin Trade Name Freq PRN Reason Stop Dose Admin Hydrocodone Bitart/Acetaminophen 1 each 12/23/20 20:03 Hydrocodone/Apap 5-325mg 1 Each Tab PO Q6HR PRN Pain Albuterol Sulfate 2 puff 12/23/20 20:03 12/24/20 07:30 Albuterol Hfa Inhaler INHALATION 2 puff RT-QID PRN Administration Shortness Of Breath Aspirin 81 mg 12/24/20 09:00 12/24/20 08:36 Aspirin 81 Mg PO 81 mg DAILY URSZULA Administration Atorvastatin Calcium 40 mg 12/24/20 09:00 12/24/20 08:36 Atorvastatin 40 Mg Tab PO 40 mg DAILY URSZULA Administration Furosemide 40 mg 12/24/20 09:00 12/24/20 08:36 Furosemide 40 Mg Tab PO 40 mg DAILY URSZULA Administration Heparin Sodium (Porcine) 5,000 unit 12/24/20 08:00 Heparin Sodium,Porcine/Pf 5,000 Unit/0.5 Ml Syringe SQ Q8HR [facility] Lisinopril 5 mg 12/24/20 09:00 12/24/20 08:36 Lisinopril 5 Mg Tab PO 5 mg DAILY URSZULA Administration Metoprolol Tartrate 50 mg 12/23/20 21:00 12/24/20 08:36 Metoprolol Tartrate 50 Mg Tab PO 50 mg BID URSZULA Administration Morphine Sulfate 4 mg 12/23/20 20:23 12/24/20 08:42 Morphine Sulfate 4 Mg/Ml Syringe IVP 4 mg Q4H PRN Administration Pain Spironolactone 25 mg 12/24/20 09:00 12/24/20 08:36 Spironolactone 25 Mg Tab PO 25 mg DAILY URSZULA Administration Intake and Output 12/23/20 12/24/20 12/24/20 22:59 06:59 14:59 Other: Voiding Method Toilet Toilet # Voids 2 Weight 79.379 kg 12/24/20 07:02 12/23/20 17:59
--- NOTE | 2020-12-24 13:07 | P.PN ---
Subjective Progress Note Date: 12/24/20 No new complaints today. Still dyspneic with minimal exertion. Objective - Vital Signs Vital signs: Vital Signs Temp 97.6 F 12/24/20 06:49 Pulse 88 12/24/20 06:49 Resp 18 12/24/20 06:49 BP 125/82 12/24/20 06:49 Pulse Ox 95 12/24/20 06:49 Intake & Output 12/23/20 12/24/20 12/24/20 18:59 06:59 18:59 Weight 79.379 kg 79.379 kg Other: Voiding Method Toilet Toilet # Voids 2 - Exam Gen: awake, alert HEENT: normocephalic, atraumatic, good hearing acuity, moist mucous membranes Resp: good air exchange, breathing comfortably with no accessory muscle use CVS: good distal perfusion x 4, GI: soft, NTTP, ND : no SPT, no CVAT, muniz catheter not present MSK: no pitting edema, no clubbing Neuro: non-focal, moving all extremities Psych: cooperative, euthymic mood - Labs CBC & Chem 7: 12/24/20 07:02 12/23/20 17:59 Labs: Abnormal Lab Results - Last 24 Hours (Table) 12/23/20 12/23/20 12/24/20 Range/Units 17:59 17:59 07:02 WBC 11.1 H 11.87 H (3.8-10.6) k/uL MCV 100.4 H 101.6 H (80.0-100.0) fL MCH 34.0 H (27.0-32.0) pg Immature Gran # 0.06 H (0.00-0.04) X 10*3/uL Neutrophils # 8.1 H 8.33 H (1.3-7.7) k/uL Sodium 133 L (137-145) mmol/L Carbon Dioxide 20 L (22-30) mmol/L BUN 26 H (9-20) mg/dL Glucose 136 H (74-99) mg/dL ALT 66 H (4-49) U/L Assessment and Plan Assessment: Atypical chest pain Progressive dyspnea chronic systolic cardiomyopathy with left ventricular ejection fraction 20% currently compensated Medical noncompliance valvular heart disease Plan Left heart Cath done in February 2020 shows normal coronary arteries, severe mitral valve regurg, dilated cardiomyopathy, left ventricular ejection fraction 20% Follow-up cardiology recommendations - recommend CT surgery consult, pending Resume home medications 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
[2020-12-24] MEDS ORDERED: CALCIUM CARBONATE 500 MG CHEWABLE PO PRN (13:17)
[2020-12-24] MEDS: FAMOTIDINE 20 MG TAB PO SCH (13:26)
[2020-12-24 13:45] LABS: African American GFR (CKD) 77.9 (60.0-200.0); Albumin 3.8 g/dL (3.80-4.90); Albumin/Globulin Ratio 1.9 (1.60-3.17); Anion Gap 12.2 mmol/L (4.00-12.00); BUN/Creat Ratio 23.33 Ratio (12.00-20.00); Calcium 9.4 mg/dL (8.7-10.3); Carbon Dioxide 21.8 mmol/L (21.6-31.8); Non-African American GFR(CKD) 67.2 (60.0-200.0); Potassium 4.4 mmol/L (3.5-5.5); Total Bilirubin 0.6 mg/dL (0.2-1.2); Total Protein 5.8 g/dL (6.2-8.2)
--- NOTE | 2020-12-24 16:30 | P.GSCN ---
<Kyrie Virk - Last Filed: 12/24/20 15:44> History of Present Illness Consult date: 12/24/20 Reason for Consult: Severe mitral valve regurgitation, severe tricuspid valve regurgitation, modera te to severe pulmonary hypertension, cardiomyopathy with ejection fraction of 20%, presentation with atypical chest pain and dyspnea. Requesting physician: Jhon Causey History of present illness: This is a 55-year-old gentleman who does not follow with a primary care physician on a regular basis. He is a past medical history significant for kno wn severe mitral valve regurgitation, severe tricuspid valve regurgitation, cardiomyopathy with ejection fraction of 20%, moderate to severe pulmonary hypertension, hypertension, peritonitis in 2007 with emergent surgery to place a colostomy and subsequent reversal, remote history of EtOH abuse 20 years ago, degenerative joint disease with chronic back pain, chronic ongoing tobacco dependence, daily marijuana use, occasional cocaine use, COPD, history of myocardial infarction, and anxiety. Yesterday 12/23/2020 the patient presented to the emergency department here at [facility] with complaints of chest pain which he reports has been off and on for the past year which has p rogressively been getting worse over the past couple of weeks. He is also complaining of shortness of breath with minimal exertion and sometimes even with just talking. He denies any fever, chills, cough, hemoptysis, hematemesis, nausea, vomiting, diarrhea, constipation, diaphoresis, palpitations or syncope. The patient also reports episodes of dizziness, but states he has never felt like he was given a pass out. In the emergency department a 12-lead EKG was completed which showed normal sinus rhythm with T-wave inversions in the inferior and lateral leads and a heart rate of 97 BPM. A chest x-ray was completed in the emergency department which demonstrated interstitial pneumonitis or mild venous congestion. In in February 2020 the patient underwent a heart catheterization and transesophageal echocardiogram here at [facility]. His cardiac catheterization results demonstrated normal coronary arteries, dilated cardiomyopathy with severe LV dysfunction and 3+ mitral valve regurgitation. The transesophageal echocardiogram demonstrated severe central mitral valve regurgitation secondary to dilated mitral annulus, severe LV dysfunction with an ejection fraction of 20%, and severe tricuspid valve regurgitation. Subsequently the patient was also seen by Dr. Franky Nichols from cardiac surgery in March 2020 and at that time was instructed to pursue directed medical therapy and maximize it along with smoking cessation and the patient reports today that he did not want surgery at that time. Dr. Nichols also had a lengthy discussion with the patient regarding potential future therapy including mitral clip, mitral valve repair versus replacement. The patient also reports that after meeting with Dr. Nichols he did not feel like he wanted to pursue the surgical option as he started feeling better, and also admits to being noncompliant with his prescribed medicine regimen as an outpatient. He is now stating that he would like to pursue a surgical option. Due to the patient's presenting symptoms, known history of severe mitral valve regurgitation and severe tricuspid valve regurgitation a consult was placed to Dr. Franky Nichols from cardiothoracic surgery for further evaluation and treatment recommendations. Review of Systems A 14 point review of systems was completed and was negative except as mentioned in the HPI. Past Medical History Past Medical History: Asthma, Chest Pain / Angina, COPD, Hyperlipidemia, Hypertension, Myocardial Infarction (SC), Osteoarthritis (OA), Prostate Disorder Additional Past Medical History / Comment(s): Pt states he recently has been treated for upper respiratory infection, kidney stones, chronic mid and low back pain, prostate problems-pt states damaged during laparotomy surgery, migraines, bronchial asthma. History of severe mitral valve regurgitation, severe tricuspid valve regurgitation dilated cardiomyopathy with severe LV dysfunction with an ejection fraction of 20%. Last Myocardial Infarction Date:: 2019 History of Any Multi-Drug Resistant Organisms: None Reported Past Surgical History: Appendectomy, Bowel Resection, Tonsillectomy Additional Past Surgical History / Comment(s): colonscopy with bowel perforation -laparotomy with bowel resection and colostomy/appendectomy-colostomy eventually reversed. History of heart catheterization without PCI. Past Anesthesia/Blood Transfusion Reactions: No Reported Reaction Past Psychological History: Anxiety Smoking Status: Former smoker Past Alcohol Use History: None Reported Additional Past Alcohol Use History / Comment(s): Pt started smoking in 1973 and smokes 3 cigars a day. Past Drug Use History: Cocaine, Marijuana Additional Drug Use History / Comment(s): Smokes 1 pack per day 40 years, daily marijuana use, occasional cocaine use. - Past Family History Father Additional Family Medical History / Comment(s): Father had pacemaker. Mother Additional Family Medical History / Comment(s): Thyroid cancer, Alzheimer's Medications and Allergies Home Medications Medication Instructions Recorded Confirmed Type Albuterol Inhaler [Ventolin Hfa 2 puff INHALATION RT-QID PRN #1 03/07/20 12/23/20 Rx Inhaler] inhaler Atorvastatin [Lipitor] 40 mg PO DAILY #30 tab 03/07/20 12/23/20 Rx Furosemide [Lasix] 40 mg PO DAILY #30 tab 03/07/20 12/23/20 Rx Nitroglycerin Sl Tabs [Nitrostat] 0.4 mg SUBLINGUAL Q5M PRN #30 tab 03/07/20 12/23/20 Rx Spironolactone [Aldactone] 25 mg PO DAILY #30 tab 03/07/20 12/23/20 Rx lisinopriL [Zestril] 5 mg PO DAILY #30 tab 03/07/20 12/23/20 Rx Metoprolol Tartrate [Lopressor] 25 mg PO BID 12/23/20 12/23/20 History Aspirin EC [Ecotrin] 325 mg PO DAILY 12/24/20 12/24/20 History Allergies Allergy/AdvReac Type Severity Reaction Status Date / Time Iodinated Contrast Media AdvReac Nausea & Verified 12/23/20 20:10 Vomiting shellfish derived [Shellfish] AdvReac Nausea & Verified 12/23/20 20:10 Vomiting Surgical - Exam Vital Signs Temp Pulse Resp BP Pulse Ox 97.6 F 99 20 116/77 97 12/23/20 17:33 12/23/20 17:33 12/23/20 17:33 12/23/20 17:33 12/23/20 17:33 - General well developed, well nourished, no distress, no pain - Eyes PERRL, normal ocular movement, no icteric - ENT normal pinna, normal nares, normal mucosa, no hearing loss, no congestion - Neck Neck is supple, no lymphadenopathy. no masses, no bruits, trachea midline, no venous distension - Respiratory Lung sounds with few scattered crackles throughout. No wheezes or rhonchi. Respirations are symmetrical and nonlabored. - Cardiovascular Regular rhythm and rate. S1 and S2 present, negative for S3 or gallop. Systolic murmur 3/6 heard best to his fifth intercostal space left sternal border. - Abdomen Abdomen: soft, no non tender, no tender, bowel sounds, no organomegaly, no guarding, no rigid, no distended - Genitourinary Deferred - Rectum Deferred - Integumentary Tattoos no rash, no growths, no abnormal pigmentation - Neurologic Cranial nerves II through XII intact. No focal or motor deficits. normal coordination, normal sensation - Musculoskeletal Moves all 4 extremities, equal strength bilaterally. - Psychiatric oriented to time, oriented to person, oriented to place, speech is normal, memory intact Results - Labs 12/24/20 07:02 12/24/20 07:02 Abnormal Lab Results - Last 24 Hours (Table) 12/23/20 12/23/20 12/24/20 Range/Units 17:59 17:59 07:02 WBC 11.1 H 11.87 H (3.8-10.6) k/uL MCV 100.4 H 101.6 H (80.0-100.0) fL MCH 34.0 H (27.0-32.0) pg Immature Gran # 0.06 H (0.00-0.04) X 10*3/uL Neutrophils # 8.1 H 8.33 H (1.3-7.7) k/uL Sodium 133 L (137-145) mmol/L Carbon Dioxide 20 L (22-30) mmol/L Anion Gap (4.00-12.00) mmol/L BUN 26 H (9-20) mg/dL BUN/Creatinine Ratio (12.00-20.00) Ratio Glucose 136 H (74-99) mg/dL AST (14-35) U/L ALT 66 H (4-49) U/L Total Protein (6.2-8.2) g/dL 12/24/20 Range/Units 07:02 WBC (3.8-10.6) k/uL MCV (80.0-100.0) fL MCH (27.0-32.0) pg Immature Gran # (0.00-0.04) X 10*3/uL Neutrophils # (1.3-7.7) k/uL Sodium (137-145) mmol/L Carbon Dioxide (22-30) mmol/L Anion Gap 12.20 H (4.00-12.00) mmol/L BUN 28.0 H (9-20) mg/dL BUN/Creatinine Ratio 23.33 H (12.00-20.00) Ratio Glucose (74-99) mg/dL AST 54 H (14-35) U/L ALT 79 H (4-49) U/L Total Protein 5.8 L (6.2-8.2) g/dL Diabetes panel 12/23/20 12/24/20 Range/Units 17:59 07:02 Sodium 133 L 138 (137-145) mmol/L Potassium 4.7 4.4 (3.5-5.1) mmol/L Chloride 103 104 (98-107) mmol/L Carbon Dioxide 20 L 21.8 (22-30) mmol/L BUN 26 H 28.0 H (9-20) mg/dL Creatinine 1.09 1.2 (0.66-1.25) mg/dL Glucose 136 H 108 (74-99) mg/dL Calcium 9.5 9.4 (8.4-10.2) mg/dL AST 58 54 H (17-59) U/L ALT 66 H 79 H (4-49) U/L Alkaline Phosphatase 66 67 (38-126) U/L Total Protein 6.7 5.8 L (6.3-8.2) g/dL Albumin 4.0 3.80 (3.5-5.0) g/dL Calcium panel 12/23/20 12/24/20 Range/Units 17:59 07:02 Calcium 9.5 9.4 (8.4-10.2) mg/dL Albumin 4.0 3.80 (3.5-5.0) g/dL Pituitary panel 12/23/20 12/24/20 Range/Units 17:59 07:02 Sodium 133 L 138 (137-145) mmol/L Potassium 4.7 4.4 (3.5-5.1) mmol/L Chloride 103 104 (98-107) mmol/L Carbon Dioxide 20 L 21.8 (22-30) mmol/L BUN 26 H 28.0 H (9-20) mg/dL Creatinine 1.09 1.2 (0.66-1.25) mg/dL Glucose 136 H 108 (74-99) mg/dL Calcium 9.5 9.4 (8.4-10.2) mg/dL Adrenal panel 12/23/20 12/24/20 Range/Units 17:59 07:02 Sodium 133 L 138 (137-145) mmol/L Potassium 4.7 4.4 (3.5-5.1) mmol/L Chloride 103 104 (98-107) mmol/L Carbon Dioxide 20 L 21.8 (22-30) mmol/L BUN 26 H 28.0 H (9-20) mg/dL Creatinine 1.09 1.2 (0.66-1.25) mg/dL Glucose 136 H 108 (74-99) mg/dL Calcium 9.5 9.4 (8.4-10.2) mg/dL Total Bilirubin 0.7 0.6 (0.2-1.3) mg/dL AST 58 54 H (17-59) U/L ALT 66 H 79 H (4-49) U/L Alkaline Phosphatase 66 67 (38-126) U/L Total Protein 6.7 5.8 L (6.3-8.2) g/dL Albumin 4.0 3.80 (3.5-5.0) g/dL - Imaging Chest x-ray: report reviewed, image reviewed EKG: image reviewed Assessment and Plan Assessment: 1. Severe central mitral valve regurgitation 2. Severe tricuspid valve regurgitation 3. Severe LV dysfunction with an ejection fraction of 20% on ALLYSSA from 03/06/2020 4. Chest pain, atypical, serial troponins were negative 5. Dyspnea 6. Chronic obstructive pulmonary disease 7. Chronic ongoing tobacco dependence 8. Daily marijuana use 9. History of hypertension 10. Anxiety 11. History of degenerative joint disease, history of broken back 12. Remote history of EtOH abuse quit drinking 20 years ago Plan: The patient was seen and examined at his bedside in the cardiac observation unit. His chart and diagnostics were reviewed. His case was discussed in detail with Dr. Franky Nichols from cardiothoracic surgery. At this time we order a 2-D echocardiogram as his last transesophageal echocardiogram was completed in February 2020. Risk modification including smoking cessation and cessation from marijuana discussed. Continue to optimize medical management with aspirin, statin and beta annalisa. Medical management and other comorbidities per primary care service. More recommendations to follow based on patient's clinical course. Thank you for this consult and we will look for to working with you in the care of this patient. Time with Patient: Greater than 30 <Franky Nichols - Last Filed: 12/25/20 09:23> Surgical - Exam Vital Signs Temp Pulse Resp BP Pulse Ox 97.6 F 99 20 116/77 97 12/23/20 17:33 12/23/20 17:33 12/23/20 17:33 12/23/20 17:33 12/23/20 17:33 Results - Labs 12/24/20 07:02 12/24/20 07:02 Abnormal Lab Results - Last 24 Hours (Table) 12/24/20 12/24/20 Range/Units 07:02 07:02 WBC 11.87 H (4.50-10.00) X 10*3/uL MCV 101.6 H (80.0-97.0) fL MCH 34.0 H (27.0-32.0) pg Immature Gran # 0.06 H (0.00-0.04) X 10*3/uL Neutrophils # 8.33 H (1.80-7.70) X 10*3/uL Anion Gap 12.20 H (4.00-12.00) mmol/L BUN 28.0 H (9.0-27.0) mg/dL BUN/Creatinine Ratio 23.33 H (12.00-20.00) Ratio AST 54 H (14-35) U/L ALT 79 H (10-49) U/L Total Protein 5.8 L (6.2-8.2) g/dL Diabetes panel 12/24/20 Range/Units 07:02 Sodium 138 (135-145) mmol/L Potassium 4.4 (3.5-5.5) mmol/L Chloride 104 (96-109) mmol/L Carbon Dioxide 21.8 (21.6-31.8) mmol/L BUN 28.0 H (9.0-27.0) mg/dL Creatinine 1.2 (0.6-1.5) mg/dL Glucose 108 (70-110) mg/dL Calcium 9.4 (8.7-10.3) mg/dL AST 54 H (14-35) U/L ALT 79 H (10-49) U/L Alkaline Phosphatase 67 (41-126) U/L Total Protein 5.8 L (6.2-8.2) g/dL Albumin 3.80 (3.80-4.90) g/dL Calcium panel 12/24/20 Range/Units 07:02 Calcium 9.4 (8.7-10.3) mg/dL Albumin 3.80 (3.80-4.90) g/dL Pituitary panel 12/24/20 Range/Units 07:02 Sodium 138 (135-145) mmol/L Potassium 4.4 (3.5-5.5) mmol/L Chloride 104 (96-109) mmol/L Carbon Dioxide 21.8 (21.6-31.8) mmol/L BUN 28.0 H (9.0-27.0) mg/dL Creatinine 1.2 (0.6-1.5) mg/dL Glucose 108 (70-110) mg/dL Calcium 9.4 (8.7-10.3) mg/dL Adrenal panel 12/24/20 Range/Units 07:02 Sodium 138 (135-145) mmol/L Potassium 4.4 (3.5-5.5) mmol/L Chloride 104 (96-109) mmol/L Carbon Dioxide 21.8 (21.6-31.8) mmol/L BUN 28.0 H (9.0-27.0) mg/dL Creatinine 1.2 (0.6-1.5) mg/dL Glucose 108 (70-110) mg/dL Calcium 9.4 (8.7-10.3) mg/dL Total Bilirubin 0.6 (0.2-1.2) mg/dL AST 54 H (14-35) U/L ALT 79 H (10-49) U/L Alkaline Phosphatase 67 (41-126) U/L Total Protein 5.8 L (6.2-8.2) g/dL Albumin 3.80 (3.80-4.90) g/dL Assessment and Plan Plan: Patient seen and examined. Chart reviewed. My recommendations at this point remain unchanged from my recommendations when he was seen as an outpatient in March 2020 (please refer to that consult for details). In a nut-shell, patient non-compliant with medical Rx and/or F/U. I stressed again that the mainstay of treatment for his NICM and functional MR/TR is maximum guideline medical Rx especially that he was Functional class I when he did follow that. No further therapy could substitute to that but could only be adjunctive. Franky Nichols MD
[2020-12-24] MEDS: HEPARIN SODIUM,PORCINE/PF 5,000 UNIT/0.5 ML SYRINGE SQ SCH ×3 (17:25→21:08)
[2020-12-24] MEDS ORDERED: LORazepam 2 MG/ML INJ IV STA (18:19)
[2020-12-24] MEDS: LORazepam 1 MG TAB PO PRN ×2 (18:21→22:45)
[2020-12-25] MEDS: ATORVASTATIN 40 MG TAB PO SCH (08:11)
[2020-12-25] MEDS: FAMOTIDINE 20 MG TAB PO SCH (08:11)
[2020-12-25] MEDS: lisinopriL 5 MG TAB PO SCH (08:11)
[2020-12-25] MEDS: ASPIRIN 81 MG PO SCH (08:11)
[2020-12-25] MEDS: HEPARIN SODIUM,PORCINE/PF 5,000 UNIT/0.5 ML SYRINGE SQ SCH ×3 (08:11→23:47)
[2020-12-25] MEDS: METOPROLOL TARTRATE 50 MG TAB PO SCH ×2 (08:11→21:54)
[2020-12-25] MEDS: SPIRONOLACTONE 25 MG TAB PO SCH (08:12)
[2020-12-25] MEDS: FUROSEMIDE 40 MG TAB PO SCH (08:12)
[2020-12-25] MEDS: LORazepam 1 MG TAB PO PRN ×2 (08:18→16:10)
[2020-12-25] MEDS: HYDROcodone/APAP 5-325MG 1 EACH TAB PO PRN ×2 (08:21→16:09)
[2020-12-25] MEDS: ALBUTEROL HFA INHALER INHALATION PRN ×2 (08:27→20:00)
--- NOTE | 2020-12-25 11:36 | P.PN ---
Subjective Progress Note Date: 12/25/20 HISTORY OF PRESENT ILLNESS: 12/24/2020 This is a 55 year old male with a past medical history significant for severe mitral regurgitation, COPD, hypertension, and cardiomyopathy. Patient states he does not follow with a chef broiler or fry. We have been asked to see the patient in consultation for chest pain. Patient examined at the bedside this morning. Patient states he has been having some intermittent shortness of breath and chest pain. At the time of examination this morning, the patient denies having any chest pain. Patient was hospitalized last year for chest pain. He under went a cardiac catheterization by Dr. Nelson in February 2020 revealing normal coronary arteries. Severe dilated cardiomyopathy with an ejection fraction less than 20%. Patient also underwent ALLYSSA revealing severe mitral regurgitation and severe tricuspid regurgitation. Patient was evaluated by cardiothoracic surgery at that time and surgical intervention was recommended. The patient never underwent valve repair. He is unable to give a reason why but states "I just didn't but now I want it done". EKG reveals sinus mechanism with T-wave inversions in inferior and lateral leads Chest xray correlate for interstitial pneumonitis or mild venous congestion Laboratory data: WBC 11.87. Hemoglobin 15.1. Platelet count 276. Sodium 133. Potassium 4.7. BUN 26. Creatinine 1.09. Troponin negative 3. BNP 4540. Current home cardiac medications include aspirin 325 mg daily, Aldactone 25 mg daily, metoprolol tartrate 25 mg twice a day, lisinopril 5 mg daily, Lasix 40 mg daily, Lipitor 40 mg daily Most recent echocardiogram obtained in in February 2020 revealed ejection fraction 20-25%, severe mitral regurgitation, and moderate to severe tricuspid regurgitation. Moderate to severe pulmonary hypertension. Cardiac catheterization history: with Dr. Nelson in February 2020 revealing normal coronary arteries. Severe dilated cardiomyopathy with an ejection fraction less than 20%. 12/25/2020 Patient examined this morning at the bedside. He denies chest pain or pressure. Denies shortness of breath. Blood pressure 122/71. He is on room air with oxygen saturations greater than 92%. Heart rate in the 80s. He is afebrile. PHYSICAL EXAM: VITAL SIGNS: Reviewed. GENERAL: Well-developed in no acute distress. HEENT: Head is normocephalic. Pupils are equal, round. Sclerae anicteric. Mucous membranes of the mouth are moist. Neck supple. No JVD or thyromegaly LUNGS: Respirations even and unlabored. Lungs essentially clear to auscultation bilaterally. HEART: Regular rate and rhythm. S1 and S2 heard. Systolic murmur noted. EXTREMITIES: Normal range of motion. No clubbing or cyanosis. Peripheral pulses intact. No lower extremity edema ASSESSMENT: Chest pain, atypical, troponin negative x 3 Severe mitral regurgitation Severe tricuspid regurgitation Moderate to severe pulmonary hypertension Severe dilated cardiomyopathy with an ejection fraction of 20% COPD Anxiety Nicotine dependence Daily marijuana use PLAN: Continue current medications Patient is currently stable from a cardiac perspective Await further input from cardiothoracic surgery regarding valvular heart disease Nurse practitioner note has been reviewed by physician. Signing provider agrees with the documented findings, assessment, and plan of care. Objective - Vital Signs Vital signs: Vital Signs Temp 98.6 F 12/25/20 07:00 Pulse 87 12/25/20 07:00 Resp 18 12/25/20 07:00 BP 122/71 12/25/20 07:00 Pulse Ox 99 12/25/20 07:00 Intake & Output 12/24/20 12/25/20 12/25/20 18:59 06:59 18:59 Intake Total 240 250 200 Balance 240 250 200 Intake: Oral 240 250 200 Other: Voiding Method Toilet Toilet # Voids 2 2 # Bowel Movements 0 - Labs CBC & Chem 7: 12/24/20 07:02 12/24/20 07:02 Labs: Abnormal Lab Results - Last 24 Hours (Table) 12/24/20 Range/Units 07:02 Anion Gap 12.20 H (4.00-12.00) mmol/L BUN 28.0 H (9.0-27.0) mg/dL BUN/Creatinine Ratio 23.33 H (12.00-20.00) Ratio AST 54 H (14-35) U/L ALT 79 H (10-49) U/L Total Protein 5.8 L (6.2-8.2) g/dL
[2020-12-25 15:05] VITALS: RESP 16
--- NOTE | 2020-12-25 16:33 | P.PN ---
Subjective Progress Note Date: 12/25/20 Pt has intermittent bouts of aggressive behavior that are quite concerning. has unrealistic expectations that his heart will be completely fixed prior to discharge. CT surgery evaluation recommends ongoing medical therapy. he was counseled today that likely his heart is too sick to have a good outcome with surgery. Objective - Vital Signs Vital signs: Vital Signs Temp 97.4 F L 12/25/20 15:00 Pulse 81 12/25/20 15:00 Resp 16 12/25/20 15:00 BP 112/70 12/25/20 15:00 Pulse Ox 99 12/25/20 15:00 Intake & Output 12/24/20 12/25/20 12/25/20 18:59 06:59 18:59 Intake Total 240 250 920 Balance 240 250 920 Intake: Oral 240 250 920 Other: Voiding Method Toilet Toilet # Voids 2 2 3 # Bowel Movements 0 - Exam Gen: awake, alert HEENT: normocephalic, atraumatic, good hearing acuity, moist mucous membranes Resp: good air exchange, breathing comfortably with no accessory muscle use CVS: good distal perfusion x 4, GI: soft, NTTP, ND : no SPT, no CVAT, muniz catheter not present MSK: no pitting edema, no clubbing Neuro: non-focal, moving all extremities Psych: cooperative, euthymic mood - Labs CBC & Chem 7: 12/24/20 07:02 12/24/20 07:02 Assessment and Plan Assessment: Atypical chest pain Progressive dyspnea chronic systolic cardiomyopathy with left ventricular ejection fraction 20% currently compensated Medical noncompliance valvular heart disease Plan Left heart Cath done in February 2020 shows normal coronary arteries, severe mitral valve regurg, dilated cardiomyopathy, left ventricular ejection fraction 20% Follow-up cardiology recommendations - recommend CT surgery consult, recommend ongoing medical therapy Resume home medications Trend troponins, no ACS monitoring coordinator Covid negative Follow-up morning labs CODE STATUS:full code DVT prophylaxis: heparin sc tid Discussed with: Patient, ER Anticipated length of stay < than [address]: home
[2020-12-26] MEDS: LORazepam 1 MG TAB PO PRN ×2 (00:07→07:30)
[2020-12-26 07:11] VITALS: BP 119/85; PULSE 97; TEMP 97.5
[2020-12-26] MEDS: HYDROcodone/APAP 5-325MG 1 EACH TAB PO PRN (07:29)
[2020-12-26] MEDS: HEPARIN SODIUM,PORCINE/PF 5,000 UNIT/0.5 ML SYRINGE SQ SCH (07:30)
[2020-12-26] MEDS ORDERED: METOPROLOL SUCCINATE (ER) 50 MG TAB.ER.24H PO SCH (09:15)
[2020-12-26] MEDS: ALBUTEROL HFA INHALER INHALATION PRN (09:28)
[2020-12-26] MEDS: ASPIRIN 81 MG PO SCH (09:58)
[2020-12-26] MEDS: SPIRONOLACTONE 25 MG TAB PO SCH (09:59)
[2020-12-26] MEDS: ATORVASTATIN 40 MG TAB PO SCH (09:59)
[2020-12-26] MEDS: FAMOTIDINE 20 MG TAB PO SCH (09:59)
[2020-12-26] MEDS: lisinopriL 5 MG TAB PO SCH (09:59)
[2020-12-26] MEDS: FUROSEMIDE 40 MG TAB PO SCH (09:59)
--- NOTE | 2020-12-26 10:47 | P.PN ---
Subjective Progress Note Date: 12/26/20 HISTORY OF PRESENT ILLNESS: 12/24/2020 This is a 55 year old male with a past medical history significant for severe mitral regurgitation, COPD, hypertension, and cardiomyopathy. Patient states he does not follow with a guest attendant. We have been asked to see the patient in consultation for chest pain. Patient examined at the bedside this morning. Patient states he has been having some intermittent shortness of breath and chest pain. At the time of examination this morning, the patient denies having any chest pain. Patient was hospitalized last year for chest pain. He under went a cardiac catheterization by Dr. Nelson in February 2020 revealing normal coronary arteries. Severe dilated cardiomyopathy with an ejection fraction less than 20%. Patient also underwent ALLYSSA revealing severe mitral regurgitation and severe tricuspid regurgitation. Patient was evaluated by cardiothoracic surgery at that time and surgical intervention was recommended. The patient never underwent valve repair. He is unable to give a reason why but states "I just didn't but now I want it done". EKG reveals sinus mechanism with T-wave inversions in inferior and lateral leads Chest xray correlate for interstitial pneumonitis or mild venous congestion Laboratory data: WBC 11.87. Hemoglobin 15.1. Platelet count 276. Sodium 133. Potassium 4.7. BUN 26. Creatinine 1.09. Troponin negative 3. BNP 4540. Current home cardiac medications include aspirin 325 mg daily, Aldactone 25 mg daily, metoprolol tartrate 25 mg twice a day, lisinopril 5 mg daily, Lasix 40 mg daily, Lipitor 40 mg daily Most recent echocardiogram obtained in in February 2020 revealed ejection fraction 20-25%, severe mitral regurgitation, and moderate to severe tricuspid regurgitation. Moderate to severe pulmonary hypertension. Cardiac catheterization history: with Dr. Nelson in February 2020 revealing normal coronary arteries. Severe dilated cardiomyopathy with an ejection fraction less than 20%. 12/25/2020 Patient examined this morning at the bedside. He denies chest pain or pressure. Denies shortness of breath. Blood pressure 122/71. He is on room air with oxygen saturations greater than 92%. Heart rate in the 80s. He is afebrile. 12/26/2020 Patient examined this morning at the bedside. He denies chest pain or pressure. Denies shortness of breath. Blood pressure 119/85. Heart rate in the 90s. He is afebrile. He is on room air with oxygen saturations greater than 92%. PHYSICAL EXAM: VITAL SIGNS: Reviewed. GENERAL: Well-developed in no acute distress. HEENT: Head is normocephalic. Pupils are equal, round. Sclerae anicteric. Mucous membranes of the mouth are moist. Neck supple. No JVD or thyromegaly LUNGS: Respirations even and unlabored. Lungs essentially clear to auscultation bilaterally. HEART: Regular rate and rhythm. S1 and S2 heard. Systolic murmur noted. EXTREMITIES: Normal range of motion. No clubbing or cyanosis. Peripheral pulses intact. No lower extremity edema ASSESSMENT: Chest pain, atypical, troponin negative x 3 Severe mitral regurgitation Severe tricuspid regurgitation Moderate to severe pulmonary hypertension Severe dilated cardiomyopathy with an ejection fraction of 20% COPD Anxiety Nicotine dependence Daily marijuana use PLAN: No surgical intervention recommended from CTS Continue with medical management at this time Change metoprolol to long acting for better patient compliance with his medications Patient is currently stable from a cardiac perspective We will sign off. Please reconsult if needed Nurse practitioner note has been reviewed by physician. Signing provider agrees with the documented findings, assessment, and plan of care. Objective - Vital Signs Vital signs: Vital Signs Temp 97.5 F L 12/26/20 07:00 Pulse 97 12/26/20 07:00 Resp 16 12/26/20 07:00 BP 119/85 12/26/20 07:00 Pulse Ox 98 12/26/20 07:00 Intake & Output 12/25/20 12/26/20 12/26/20 18:59 06:59 18:59 Intake Total 920 240 Balance 920 240 Intake: Oral 920 240 Other: Voiding Method Toilet # Voids 3 1 # Bowel Movements 0 - Labs CBC & Chem 7: 12/24/20 07:02 12/24/20 07:02
--- NOTE | 2020-12-26 16:00 | P.DS ---
Providers Date of admission: 12/23/20 19:05 Expected date of discharge: 12/26/20 Attending physician: Patricia Lyon DO Consults: 12/24/20 08:25 Consult Physician Routine Consulting Provider: Franky Nichols Consult Reason/Comments: Severe mitral regurg Do you want consulting provider notified?: Yes Primary care physician: Stated None Hospital Course: Atypical chest pain Progressive dyspnea chronic systolic cardiomyopathy with left ventricular ejection fraction 20% currently compensated Medical noncompliance valvular heart disease 55 year old man with medical non-compliance, chronic systolic cardiomyopathy with EF of 20%, and severe MR/TR presented for increasing dyspnea on exertion. He was seen in consultation with cardiology, who optimized his medications for HFrEF with goal directed medical therapy, and by CT surgery, who recommended no intervention at this time. Patient was counseled that his new medications should be followed closely with cardiology, and regarding his valvular disease, his heart was too sick to intervene at this time. Patient may warrant surgical repair in the future should his EF improve with GDMT as started by cardiology. Pt to follow up with PCP, cardiology. He was counseled on these recommendations. Assessment: Gen: awake, alert HEENT: normocephalic, atraumatic, good hearing acuity, moist mucous membranes Resp: good air exchange, breathing comfortably with no accessory muscle use CVS: good distal perfusion x 4, GI: soft, NTTP, ND : no SPT, no CVAT, muniz catheter not present MSK: no pitting edema, no clubbing Neuro: non-focal, moving all extremities Psych: cooperative, euthymic mood Patient Condition at Discharge: Good Plan - Discharge Summary Discharge Rx Participant: No New Discharge Prescriptions: New Aspirin 81 mg PO DAILY #90 chew Famotidine [Pepcid] 20 mg PO DAILY tab Calcium Carbonate [Tums] 1,000 mg PO QID PRN chew PRN Reason: Heartburn Metoprolol Succinate (ER) [Toprol XL] 50 mg PO DAILY #90 tab Continue Spironolactone [Aldactone] 25 mg PO DAILY #30 tab Furosemide [Lasix] 40 mg PO DAILY #30 tab Atorvastatin [Lipitor] 40 mg PO DAILY #30 tab Nitroglycerin Sl Tabs [Nitrostat] 0.4 mg SUBLINGUAL Q5M PRN #30 tab PRN Reason: Chest Pain Albuterol Inhaler [Ventolin Hfa Inhaler] 2 puff INHALATION RT-QID PRN #1 inhaler PRN Reason: Shortness Of Breath lisinopriL [Zestril] 5 mg PO DAILY #30 tab Discontinued Metoprolol Tartrate [Lopressor] 25 mg PO BID Aspirin EC [Ecotrin] 325 mg PO DAILY Discharge Medication List Albuterol Inhaler [Ventolin Hfa Inhaler] 2 puff INHALATION RT-QID PRN #1 inhaler 03/07/20 [Rx] Atorvastatin [Lipitor] 40 mg PO DAILY #30 tab 03/07/20 [Rx] Furosemide [Lasix] 40 mg PO DAILY #30 tab 03/07/20 [Rx] Nitroglycerin Sl Tabs [Nitrostat] 0.4 mg SUBLINGUAL Q5M PRN #30 tab 03/07/20 [Rx] Spironolactone [Aldactone] 25 mg PO DAILY #30 tab 03/07/20 [Rx] lisinopriL [Zestril] 5 mg PO DAILY #30 tab 03/07/20 [Rx] Aspirin 81 mg PO DAILY #90 chew 12/26/20 [Rx] Calcium Carbonate [Tums] 1,000 mg PO QID PRN chew 12/26/20 [Rx] Famotidine [Pepcid] 20 mg PO DAILY tab 12/26/20 [Rx] Metoprolol Succinate (ER) [Toprol XL] 50 mg PO DAILY #90 tab 12/26/20 [Rx] Follow up Appointment(s)/Referral(s): None,Stated [Primary Care Provider] - 1-2 days Sergio Nelson MD [STAFF PHYSICIAN] - 01/13/21 3:00 pm Patient Instructions/Handouts: Chest Pain (DC) Discharge Disposition: HOME SELF-CARE
== END 2020-12-26 14:03 | disposition home or self-care (01) ==
LOC: EC 17:09 → 6NMEDSUR 19:05
PROVIDERS: ADMIT Internal Medicine; ATTEND Internal Medicine
DX: R07.89 Other chest pain (principal); I08.1 Rheumatic disorders of both mitral and tricuspid valves; I27.20 Pulmonary hypertension, unspecified; J44.9 Chronic obstructive pulmonary disease, unspecified; F41.9 Anxiety disorder, unspecified; F12.90 Cannabis use, unspecified, uncomplicated; I42.0 Dilated cardiomyopathy; Z91.19 Patient's noncompliance with other medical treatment and regimen; R12 Heartburn; I10 Essential (primary) hypertension; I25.2 Old myocardial infarction; M19.90 Unspecified osteoarthritis, unspecified site; G89.29 Other chronic pain; M54.5 Low back pain; M54.6 Pain in thoracic spine; G43.909 Migraine, unspecified, not intractable, without status migrainosus; R42 Dizziness and giddiness; E78.5 Hyperlipidemia, unspecified; N42.9 Disorder of prostate, unspecified; Z20.822 Contact with and (suspected) exposure to COVID-19; Z87.442 Personal history of urinary calculi; Z90.49 Acquired absence of other specified parts of digestive tract; Z91.041 Radiographic dye allergy status; Z91.013 Allergy to seafood; F17.210 Nicotine dependence, cigarettes, uncomplicated; Z79.899 Other long term (current) drug therapy; Z79.82 Long term (current) use of aspirin; Z79.891 Long term (current) use of opiate analgesic; Z82.0 Family history of epilepsy and other diseases of the nervous system; Z81.8 Family history of other mental and behavioral disorders; Z80.8 Family history of malignant neoplasm of other organs or systems; Z82.49 Family history of ischemic heart disease and other diseases of the circulatory system
CPT/HCPCS: 96376; 96372 ×2; 96374; 99285; 36415; 94640 ×4; 93005; 93306; 83880; 80053 ×2; 82607; 83735; 84484 ×2; 85025 ×2; 85610; 85730; 87635; 71046; G0378 ×4; J2270 ×2; J1644 ×2

== ENCOUNTER 2021-02-20 20:53 | Observation (INO) | payer OTHER ==
[2021-02-20 20:58] LABS: Glucose,Whole Blood 103 mg/dL (75-99)
[2021-02-20] MEDS ORDERED: HYDROcodone/APAP 5-325MG 1 EACH TAB PO STA (21:13)
[2021-02-20 21:15] VITALS: TEMP 98.2
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
[2021-02-20 21:28] LABS: Basophils # (A) 0.1 k/uL (0-0.2); Basophils % (A) 1 %; Eosinophils # (A) 0.2 k/uL (0-0.7); Eosinophils % (A) 2 %; HCT 45.3 % (39.0-53.0); HGB 15.6 gm/dL (13.0-17.5); Lymphocytes # (A) 1.6 k/uL (1.0-4.8); Lymphocytes % (A) 18 %; MCH 33.1 pg (25.0-35.0); MCHC 34.5 g/dL (31.0-37.0); MCV 96.1 fL (80.0-100.0); Mean Platelet Volume 7.2; Monocytes # (A) 0.5 k/uL (0-1.0); Monocytes % (A) 6 %; Neutrophils # (A) 6.1 k/uL (1.3-7.7); Neutrophils % (A) 71 %; Platelet Count 254 k/uL (150-450); RBC 4.71 m/uL (4.30-5.90); RDW 12.8 % (11.5-15.5); WBC 8.6 k/uL (3.8-10.6)
[2021-02-20 21:40] LABS: INR 0.9 (<1.2); Partial Thromboplastin Time 22.6 sec (22.0-30.0)
--- NOTE | 2021-02-20 21:41 | XR ---
EXAMINATION TYPE: XR chest 2V DATE OF EXAM: 02/20/2021 COMPARISON: 12/23/2020 HISTORY: Chest pain TECHNIQUE: FINDINGS: Heart and mediastinum are normal. Lungs are clear. Diaphragm is normal. Bony thorax is inta ct. There are chest leads. IMPRESSION: Normal chest. No adverse change.
[2021-02-20 21:45] LABS: Albumin 4.5 g/dL (3.5-5.0); Calcium 9.6 mg/dL (8.4-10.2); Magnesium 1.5 mg/dL (1.6-2.3); Potassium 3.7 mmol/L (3.5-5.1); Total Bilirubin 0.3 mg/dL (0.2-1.3); Total Protein 7.5 g/dL (6.3-8.2)
[2021-02-20] MEDS ORDERED: NITROGLYCERIN SL TABS 0.4 MG TAB SUBLINGUAL PRN (23:07)
[2021-02-20] MEDS ORDERED: SODIUM CHLORIDE 0.9% 1,000 ML IV SCH (23:15)
[2021-02-21] MEDS ORDERED: ASPIRIN 325 MG TAB PO SCH (09:00)
[2021-02-21 10:06] LABS: Chol/HDL Ratio 5.47; LDL Cholesterol,Calculated 205.2 mg/dL (0.0-131.0); VLDL Calculation 40.8 mg/dL (5.00-40.00)
[2021-02-21] MEDS ORDERED: ALBUTEROL NEBULIZED 2.5 MG/3 ML INHALATION PRN (10:34)
[2021-02-21] MEDS ORDERED: NITROGLYCERIN SL TABS 0.4 MG TAB SUBLINGUAL PRN (10:36)
[2021-02-21] MEDS: MAGNESIUM SULFATE-D5W PMX 1 GM in DEXTROSE/WATER 1 100ML.BAG IVPB SCH ×2 (11:25→13:53)
[2021-02-21 13:15] LABS: African American GFR (CKD) 82 (>60 ml/min/1.73 sqM); Anion Gap 5 mmol/L; Blood Urea Nitrogen 32 mg/dL (9-20); Calcium 9.3 mg/dL (8.4-10.2); Carbon Dioxide 31 mmol/L (22-30); Chloride 98 mmol/L (98-107); Glucose 91 mg/dL (74-99); Non-African American GFR(CKD) 71 (>60 ml/min/1.73 sqM); Potassium 4.1 mmol/L (3.5-5.1); Sodium 134 mmol/L (137-145)
--- NOTE | 2021-02-21 13:46 | XR ---
EXAMINATION TYPE: XR chest 1V portable DATE OF EXAM: 02/21/2021 COMPARISON: 02/20/2021 HISTORY: Cough TECHNIQUE: Single frontal view of the chest is obtained. FINDINGS: There is no focal air space opacity, pleural effusion, or pneumothorax seen. The cardiac silhouette size is within normal limits. The osseous structures are intact. IMPRESSION: No acute process.
[2021-02-21 14:28] VITALS: BP 112/68; PULSE 75; RESP 20
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
--- NOTE | 2021-02-21 14:58 | P.DS ---
Providers Date of admission: 02/20/21 23:10 Attending physician: Hiren Alonso MD Consults: 02/20/21 23:08 Consult Physician Routine Consulting Provider: Sergio Nelson Consult Reason/Comments: syncope Do you want consulting provider notified?: Yes Primary care physician: Stated None Hospital Course: Patient later left AGAINST MEDICAL ADVICE Patient Condition at Discharge: Stable Plan - Discharge Summary New Discharge Prescriptions: No Action Spironolactone [Aldactone] 25 mg PO DAILY #30 tab Nitroglycerin Sl Tabs [Nitrostat] 0.4 mg SUBLINGUAL Q5M PRN #30 tab PRN Reason: Chest Pain Albuterol Inhaler [Ventolin Hfa Inhaler] 2 puff INHALATION RT-QID PRN #1 inhaler PRN Reason: Shortness Of Breath Aspirin 81 mg PO DAILY #90 chew Metoprolol Succinate (ER) [Toprol Xl] 25 mg PO DAILY Torsemide [Demadex] 20 mg PO MOWEFR Sacubitril/Valsartan [Entresto 24 mg-26 mg Tablet] 1 tab PO BID Famotidine [Pepcid] 20 mg PO BID Discharge Medication List Albuterol Inhaler [Ventolin Hfa Inhaler] 2 puff INHALATION RT-QID PRN #1 inhaler 03/07/20 [Rx] Nitroglycerin Sl Tabs [Nitrostat] 0.4 mg SUBLINGUAL Q5M PRN #30 tab 03/07/20 [Rx] Spironolactone [Aldactone] 25 mg PO DAILY #30 tab 03/07/20 [Rx] Aspirin 81 mg PO DAILY #90 chew 12/26/20 [Rx] Famotidine [Pepcid] 20 mg PO BID 02/20/21 [History] Metoprolol Succinate (ER) [Toprol Xl] 25 mg PO DAILY 02/20/21 [History] Sacubitril/Valsartan [Entresto 24 mg-26 mg Tablet] 1 tab PO BID 02/20/21 [History] Torsemide [Demadex] 20 mg PO MOWEFR 02/20/21 [History] Follow up Appointment(s)/Referral(s): None,Stated [Primary Care Provider] - 1-2 days Discharge Disposition: Left Against Medical Advice
[2021-02-21] MEDS ORDERED: FAMOTIDINE 20 MG TAB PO SCH (21:00)
[2021-02-22] MEDS ORDERED: METOPROLOL SUCCINATE (ER) 25 MG TAB.ER.24H PO SCH (09:00)
[2021-02-22] MEDS ORDERED: SPIRONOLACTONE 25 MG TAB PO SCH (09:00)
[2021-02-22] MEDS ORDERED: ASPIRIN 81 MG PO SCH (09:00)
== END 2021-02-21 14:34 | disposition left against medical advice (07) ==
LOC: EC 20:53 → 6NMEDSUR 23:10
PROVIDERS: ADMIT Internal Medicine; ATTEND Internal Medicine
DX: R55 Syncope and collapse (principal); N17.9 Acute kidney failure, unspecified; J44.1 Chronic obstructive pulmonary disease with (acute) exacerbation; I42.0 Dilated cardiomyopathy; I08.1 Rheumatic disorders of both mitral and tricuspid valves; E86.1 Hypovolemia; Z20.822 Contact with and (suspected) exposure to COVID-19; Z53.29 Procedure and treatment not carried out because of patient's decision for other reasons; Z91.19 Patient's noncompliance with other medical treatment and regimen; I10 Essential (primary) hypertension; E78.5 Hyperlipidemia, unspecified; I25.2 Old myocardial infarction; N40.0 Benign prostatic hyperplasia without lower urinary tract symptoms; M19.90 Unspecified osteoarthritis, unspecified site; F41.9 Anxiety disorder, unspecified; Z91.041 Radiographic dye allergy status; Z79.899 Other long term (current) drug therapy; Z79.82 Long term (current) use of aspirin; Z91.013 Allergy to seafood; Z87.891 Personal history of nicotine dependence; Z87.442 Personal history of urinary calculi; Z90.49 Acquired absence of other specified parts of digestive tract; Z82.0 Family history of epilepsy and other diseases of the nervous system; Z80.8 Family history of malignant neoplasm of other organs or systems
CPT/HCPCS: 96361; 96365; 96366; 99285; 36415; 93005 ×2; 83880; 80061; 80053; 80048; 83735; 84484 ×2; 85025; 85610; 85730; 87635; 71045; 71046; G0378 ×2; J3475

== ENCOUNTER 2023-02-16 10:10 | Emergency (ER) | payer OTHER ==
[2023-02-16 10:17] VITALS: BP 120/71; PULSE 88; RESP 18; TEMP 98.1
[2023-02-16] MEDS ORDERED: methylPREDNISolone SOD SUCCI 125 MG/2 ML VIAL IV STA (10:29)
[2023-02-16] MEDS ORDERED: FAMOTIDINE 20 MG/2 ML VIAL IV STA (10:29)
[2023-02-16] MEDS ORDERED: diphenhydrAMINE 50 MG/ML 1 ML VIAL IVP STA (10:29)
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
--- NOTE | 2023-02-16 10:49 | CT ---
EXAMINATION TYPE: CT brain wo con DATE OF EXAM: 02/16/2023 HISTORY: Acute onset Neuro deficits, code stroke CT DLP: 1206.6 mGycm. Automated Exposure Control for Dose Reduction was Utilized. TECHNIQUE: CT scan of the head is performed without contrast. COMPARISON: None. FINDINGS: There is no acute intracranial hemorrhage or midline shift identified. Ventricles and sul ci are within normal limits in size for patient's age. Fonseca-white matter differentiation fairly well maintained. There is 5 mm round metallic density adjacent to the superior medial aspect of the right globe axial image 10. Left globe is intact. The visualized paranasal sinuses are clear. Persistent an terior metopic suture incidentally noted. IMPRESSION: No acute intracranial hemorrhage or midline shift. Right orbital 5 mm metallic foreign b maty.
[2023-02-16 10:55] LABS: Basophils # (A) 0.1 k/uL (0-0.2); Basophils % (A) 1 %; Eosinophils # (A) 0.2 k/uL (0-0.7); Eosinophils % (A) 2 %; HGB 16.4 gm/dL (13.0-17.5); Lymphocytes # (A) 1.8 k/uL (1.0-4.8); Lymphocytes % (A) 20 %; MCH 32.2 pg (25.0-35.0); MCHC 33.6 g/dL (31.0-37.0); Mean Platelet Volume 7.5; Monocytes # (A) 0.6 k/uL (0-1.0); Monocytes % (A) 7 %; Neutrophils % (A) 69 %; Platelet Count 298 k/uL (150-450); RDW 12.4 % (11.5-15.5); WBC 8.7 k/uL (3.8-10.6)
[2023-02-16 11:08] LABS: ALT 18 U/L (4-49); AST 26 U/L (17-59); African American GFR (CKD) >90 (>60 ml/min/1.73 sqM); Albumin 4.5 g/dL (3.5-5.0); Alkaline Phosphatase 77 U/L (38-126); Anion Gap 9 mmol/L; Blood Urea Nitrogen 17 mg/dL (9-20); Calcium 9.8 mg/dL (8.4-10.2); Carbon Dioxide 26 mmol/L (22-30); Chloride 106 mmol/L (98-107); Creatine Kinase 148 U/L (55-170); Glucose 92 mg/dL (74-99); Non-African American GFR(CKD) >90 (>60 ml/min/1.73 sqM); Potassium 4.7 mmol/L (3.5-5.1); Sodium 141 mmol/L (137-145); Total Bilirubin 0.6 mg/dL (0.2-1.3); Total Protein 7.6 g/dL (6.3-8.2)
[2023-02-16 11:10] LABS: INR 0.9 (<1.2); Prothrombin Time 10.1 sec (9.0-12.0)
--- NOTE | 2023-02-16 11:21 | CT ---
EXAMINATION TYPE: CT angio head neck DATE OF EXAM: 02/16/2023 HISTORY: Neuro deficits, code stroke COMPARISON: None. CT DLP: 433.1 mGycm. Automated Exposure Control for Dose Reduction was Utilized. TECHNIQUE: CTA scan of the head and neck is performed with IV Contrast, patient injected with 65 mL of Isovue 370, axial images are obtained, coronal and sagittal reformatted images are reviewed. 3D re constructed images are created on an independent workstation and reviewed. FINDINGS: Carotid/Vascular Structures: There is bovine type aortic arch which is normal variant. There is mild- to-moderate peripheral mixed plaque at origin of the left subclavian artery without significant steno sis. No significant plaque or stenosis in the common carotid arteries bilaterally. Mild peripheral pl aque left carotid bulb extends into the proximal internal carotid artery without significant stenosis . No significant plaque right carotid bulb. Patent external carotid arteries bilaterally without sign ificant stenosis. Vertebral arteries are patent to the basilar junction. Right vertebral artery is dominant. There are hypoplastic bilateral posterior communicating arteries. There is no significant focal stenosis or ane urysm in the posterior circulation. There is small caliber right A1 segment with improved caliber of the right A2 segment due to patent anterior communicating artery on image 135. No focal aneurysm in t he anterior circulation. Other: Mild to moderate emphysematous change of visualized upper lungs. Grade 1 anterolisthesis C2 on C3 and grade 1 retrolisthesis C5 on C6. There is moderate disc space na rrowing with endplate sclerosis at C5-C6 level. IMPRESSION: 1. No significant stenosis in common or internal carotid arteries bilaterally. 2. No aneurysm or sign ificant focal stenosis at level [place]. NASCET criteria was used in interpretation of this exam?
[2023-02-16] MEDS ORDERED: ASPIRIN 325 MG TAB PO STA (11:28)
[2023-02-16] MEDS ORDERED: SODIUM CHLORIDE 0.9% 500 ML 500 ML IV ONE (11:28)
--- NOTE | 2023-02-16 11:37 | XR ---
EXAMINATION TYPE: XR chest 1V portable DATE OF EXAM: 02/16/2023 Comparison: 02/21/2021 Clinical History: 57-year-old male confusion, altered mental status Findings: Heart upper limits of normal in size. Aorta and pulmonary vasculature within normal limits. Mild inte rstitial prominence is chronic appearance. No consolidation or pleural effusion seen. Impression: Borderline heart size. There are chronic changes. No definite acute process.
== END 2023-02-16 12:07 | disposition left against medical advice (07) ==
LOC: EC 10:10
DX: I63.9 Cerebral infarction, unspecified (principal); I10 Essential (primary) hypertension; I25.2 Old myocardial infarction; J44.9 Chronic obstructive pulmonary disease, unspecified; F41.9 Anxiety disorder, unspecified; Z79.84 Long term (current) use of oral hypoglycemic drugs; Z79.899 Other long term (current) drug therapy; Z87.891 Personal history of nicotine dependence; Z91.013 Allergy to seafood; Z88.8 Allergy status to other drugs, medicaments and biological substances; Z53.29 Procedure and treatment not carried out because of patient's decision for other reasons
CPT/HCPCS: 99284; 96374; 96375 ×2; 36415; 93005; 80053; 82550; 84484; 85025; 85610; 85730; 71045; 70496; 70450; 70498; J1200; J2930; Q9967